=== PATIENT | female | born 1945 | race Caucasian/White ===

== ENCOUNTER 2020-09-21 14:46 | Inpatient (IN) | payer BC, MEDICARE, OTHER ==
[~2020-09-21] VITALS: Ht 152.4 cm; Wt 88.6 kg
[2020-09-21 16:40] VITALS: BP 163/81
--- NOTE | 2020-09-21 17:30 | NUR ---
Patient was admitted @1730 via [facility]. Patient is alert and oriented x 4. On RA saturating @ 93% pulse is 82. Patient has right upper arm midline. Informed Dr Bernstein of the admission.
[2020-09-21] MEDS ORDERED: Z GUARD REMEDY PASTE 57 GM TUBE TOP PRN (18:00)
[2020-09-21] MEDS ORDERED: OXYCODONE/APAP 5-325 MG TABLET PO PRN (19:00)
[2020-09-21] MEDS ORDERED: IPRATROPIUM NEB NEB (19:07)
[2020-09-21] MEDS ORDERED: MAGN250T37 PO (19:07)
[2020-09-21] MEDS ORDERED: ASCO500T10 PO (19:07)
[2020-09-21] MEDS ORDERED: ACET-2154 PO (19:07)
[2020-09-21] MEDS ORDERED: VANCO (19:07)
[2020-09-21] MEDS ORDERED: METHOCARBAMOL PO (19:07)
[2020-09-21] MEDS ORDERED: HYDR25TA4 PO (19:07)
[2020-09-21] MEDS ORDERED: ENOX40DI SQ (19:07)
[2020-09-21] MEDS ORDERED: diphenhydramine IV (19:07)
[2020-09-21] MEDS ORDERED: ZINC1CAP2 PO (19:07)
[2020-09-21] MEDS ORDERED: folic acid PO (19:07)
[2020-09-21] MEDS ORDERED: SODI473S8 TOP (19:07)
[2020-09-21] MEDS ORDERED: ALBU1.25 IH (19:07)
[2020-09-21] MEDS ORDERED: MAGN400O6 PO (19:07)
[2020-09-21] MEDS ORDERED: CEFE1FRO IV (19:07)
[2020-09-21] MEDS ORDERED: HYDROMORPHONE IV (19:07)
[2020-09-21] MEDS ORDERED: METF1000 PO (19:07)
[2020-09-21] MEDS ORDERED: AMLO10TA59 PO (19:07)
[2020-09-21] MEDS ORDERED: ZOLP5TAB8 PO (19:07)
[2020-09-21] MEDS ORDERED: METRONIDAZOLE IV (19:07)
[2020-09-21] MEDS ORDERED: VALS160T2 PO (19:07)
[2020-09-21] MEDS ORDERED: Vancomycin IV (19:07)
[2020-09-21] MEDS ORDERED: CHOL10002 PO (19:07)
[2020-09-21] MEDS ORDERED: ANAS1TAB50 PO (19:07)
[2020-09-21] MEDS ORDERED: CYAN100T44 PO (19:07)
[2020-09-21] MEDS ORDERED: ONDANSETRON (19:07)
[2020-09-21] MEDS ORDERED: OXYCODONE HCL 5 MG TABLET PO PRN (19:15)
[2020-09-21] MEDS ORDERED: DEXTROSE 50% 50 ML DISP.SYRIN IV PRN (19:45)
--- NOTE | 2020-09-21 19:52 | NUR ---
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 Patient history of left breast CA, Uterine CA, Chronic lower back pain and osteoarthritis. Patient on Davis Catheter with urine yellow in color. Patient has right upper arm midline and right chest wall portacath not accessed. Seen and examined by Dr Bernstein , received an order for Oxycodone IR 10mg every [address] Kenney Walters made aware of patient admission and the need for medication reconciliation. Routine admission care done. Endorsed accordingly to the shift stacker nurse.
[2020-09-21 20:15] VITALS: BP 142/54
[2020-09-21] MEDS ORDERED: ZOLPIDEM 5 MG TABLET PO PRN (21:30)
[2020-09-21] MEDS ORDERED: ALBUTEROL SULFATE 1.25 MG/3 ML NEBU IH PRN (21:30)
[2020-09-21] MEDS ORDERED: METHOCARBAMOL 500 MG TABLET PO PRN (21:30)
[2020-09-21] MEDS ORDERED: CEFEPIME HCL 1 G in IV DEXTROSE 5% 50 ML IV SCH (21:30)
[2020-09-21] MEDS ORDERED: MAGNESIUM HYDROXIDE 30 ML LIQUID UDC PO PRN (21:30)
[2020-09-21] MEDS ORDERED: IPRATROPIUM BROMIDE 0.5 MG/2.5 ML NEBU NEB PRN (21:30)
[2020-09-21] MEDS ORDERED: ACETAMINOPHEN 325 MG TABLET PO PRN (21:30)
[2020-09-21] MEDS ORDERED: METRONIDAZOLE 500 MG/NS 100ML 500 MG in PREMIXED 1 EACH IV SCH (22:00)
[2020-09-21] MEDS: INSULIN REGULAR, HUMAN 300 UNIT/3 ML VIAL SQ PRN (23:16)
[2020-09-21] MEDS: BLOOD SUGAR DIAGNOSTIC 1 EACH STRIP VI SCH (23:16)
[2020-09-21] MEDS ORDERED: VANCOMYCIN IV 1,250 MG in IV DEXTROSE 5% 250 ML IV ONE (23:45)
[2020-09-22] MEDS ORDERED: VANCOMYCIN HCL 500 MG VIAL ONE (00:16)
[2020-09-22] MEDS ORDERED: VANCOMYCIN 1000 MG VIAL ONE (00:16)
[2020-09-22] MEDS ORDERED: CEFEPIME HCL 1 G VIAL ONE (00:17)
[2020-09-22] MEDS ORDERED: METRONIDAZOLE 500 MG/NS 100ML 100 ML IV ONE (00:17)
[2020-09-22] MEDS ORDERED: NALOXONE HCL 0.4 MG/ML AMPUL IV PRN (00:30)
[2020-09-22] MEDS: OXYCODONE/APAP 5-325 MG TABLET PO PRN ×2 (03:39→12:28)
--- NOTE | 2020-09-22 03:59 | NUR ---
PT SCREAMING IN PAIN, REPOSITIONED FOR COMFORT, OFFLOADED ONTO RIGHT SIDE. PER PT REQUEST ADMINISTERED PERCOCET, WILL MONITOR FOR EFFECT. IV VANCO INFUSING. NEEDS ATTENDED TOO. ADMISSION PHOTOS NOT COMPLETED, PT REQUEST SHE IS IN TOO MUCH PAIN AND WOULD RATHER TAKE PHOTOS IN THE MORNING. WOULD LIKE TO REST. WILL CONTINUE PLAN OF CARE.
[2020-09-22 04:15] VITALS: BP 134/54
[2020-09-22] MEDS: OXYCODONE HCL 10 MG TAB.SR.12H PO SCH ×3 (06:42→21:49)
[2020-09-22] MEDS: BLOOD SUGAR DIAGNOSTIC 1 EACH STRIP VI SCH ×4 (06:48→20:57)
[2020-09-22 08:00] VITALS: BP 125/65
[2020-09-22 08:37] LABS: CREATININE 1.2 mg/dL (0.6-1.3); POTASSIUM 3.8 mmol/L (3.5-5.1)
[2020-09-22] MEDS ORDERED: SODIUM HYPOCHLORITE 0.125% (QUARTER STRENGTH) 473 ML BOTTLE TP SCH (09:00)
[2020-09-22] MEDS: HYDROCHLOROTHIAZIDE 25 MG TABLET PO SCH (09:06)
[2020-09-22] MEDS: ASCORBIC ACID 500 MG TABLET PO SCH (09:07)
[2020-09-22] MEDS: METFORMIN HCL 500 MG TABLET PO SCH ×2 (09:07→17:24)
[2020-09-22] MEDS: CHOLECALCIFEROL 1,000 UNIT TABLET PO SCH (09:07)
[2020-09-22] MEDS: VALSARTAN 160 MG TABLET PO SCH (09:07)
[2020-09-22] MEDS: ZINC SULFATE 220 MG CAPSULE PO SCH (09:07)
[2020-09-22] MEDS: AMLODIPINE 10 MG TABLET PO SCH (09:09)
[2020-09-22] MEDS: CYANOCOBALAMIN 100 MCG TABLET PO SCH (09:09)
[2020-09-22] MEDS: ENOXAPARIN SODIUM 40 MG/0.4 ML DISP.SYRIN SQ SCH (09:10)
[2020-09-22] MEDS: ANASTROZOLE 1 MG TABLET PO SCH (09:12)
[2020-09-22] MEDS: HYDROMORPHONE 1 MG/1 ML DISP.SYRIN IV PRN ×2 (09:25→15:57)
[2020-09-22] MEDS: METRONIDAZOLE 500 MG/NS 100ML 500 MG in PREMIXED 1 EACH IV SCH ×2 (10:28→17:25)
[2020-09-22] MEDS: SODIUM HYPOCHLORITE 0.125% (QUARTER STRENGTH) 473 ML BOTTLE TP SCH (10:59)
[2020-09-22] MEDS: INSULIN REGULAR, HUMAN 300 UNIT/3 ML VIAL SQ PRN (12:31)
[2020-09-22 15:27] VITALS: BP 143/53
--- NOTE | 2020-09-22 16:36 | NUR ---
Patient seen by Ellen Felix SCENE PAINTER for Dr. Estrada. Wound dressing change done by SCENE PAINTER. Patient agreed to have wound photos taken.
[2020-09-22 20:21] VITALS: BP 146/57
[2020-09-22] MEDS: MAGNESIUM OXIDE 250 MG TABLET PO SCH (20:59)
[2020-09-22] MEDS: CEFEPIME HCL 1 G in IV DEXTROSE 5% 50 ML IV SCH (21:10)
[2020-09-23] MEDS: METRONIDAZOLE 500 MG/NS 100ML 500 MG in PREMIXED 1 EACH IV SCH ×3 (01:57→18:18)
--- NOTE | 2020-09-23 03:43 | NUR ---
Patient received in bed AXO4 as per am shift report Patient seen by [employer] for DR. GREGORY WOUND dressing done BY [employer] wound pictures taken in AM. Patient on Davis Catheter intact draining urine in bag noted 400 ml urine yellow color, no odor noted. Patient has right upper arm midline and right chest wall mary cath not accessed. All due medication administered IV ATB Administered as per order no adverse reaction noted. PM care done kept clean and dry. safety messures initiated. call light with in [facility]
[2020-09-23 04:21] VITALS: BP 126/50
[2020-09-23 05:54] LABS: ABG BASE EXCESS 4.2 mmol/L; ABG HCO3 27.2 mmol/L; ABG PCO2 34.7 mmHg (35.0-45.0); ABG PH 7.512 (7.350-7.450); ABG PO2 65.3 mmHg (75.0-100.0); ABG SITE RIGHT RADIAL; ABG TOTAL HEMOGLOBIN 9.7 G/dL (12.0-16.0); MetHb 0.1 % (0.0-1.5); VENT MODE RA
[2020-09-23] MEDS: OXYCODONE HCL 10 MG TAB.SR.12H PO SCH ×4 (05:55→21:29)
--- NOTE | 2020-09-23 06:39 | NUR ---
End of shift notes: Quiet night. Compliant with meds. Pain meds given as scheduled. ABG's done. For CXR this am.
[2020-09-23] MEDS: BLOOD SUGAR DIAGNOSTIC 1 EACH STRIP VI SCH ×4 (06:42→20:09)
[2020-09-23 07:23] LABS: BASOPHILS # (AUTO) 0.1 K/uL (0.0-8.0); BASOPHILS % (AUTO) 0.5 % (0.0-2.0); EOSINOPHILS # (AUTO) 0.3 K/uL (0.0-0.7); EOSINOPHILS % (AUTO) 1.9 % (0.0-7.0); HEMATOCRIT 27.5 % (31.2-41.9); HEMOGLOBIN 9.2 g/dL (10.9-14.3); LYMPHOCYTES # (AUTO) 1.6 K/uL (20.0-40.0); LYMPHOCYTES % (AUTO) 9.3 % (20.5-51.5); MEAN CORPUSCULAR HGB CONC 33 g/dL (32.3-35.6); MEAN CORPUSCULAR VOLUME 87.2 fL (75.5-95.3); MONOCYTES # (AUTO) 1.5 K/uL (2.0-10.0); MONOCYTES % (AUTO) 8.9 % (0.0-11.0); NEUTROPHILS # (AUTO) 13.9 K/uL (1.8-8.9); NEUTROPHILS % (AUTO) 79.4 % (38.5-71.5); PLATELET COUNT (AUTO) 631 K/uL (179-408); RED BLOOD CELL COUNT(AUTO) 3.16 MIL/uL (3.63-4.92); WHITE BLOOD COUNT (AUTO) 17.5 K/uL (3.8-11.8)
--- NOTE | 2020-09-23 07:30 | NUR ---
Pt received in bed, awake, A&Ox4, able to verbalize needs. No SOB, no acute distress noted. Pt c/o pain, will administer medication per order. R double lumen midline patent and intact, antimicrobial dressing intact. Portacath noted, not accessible. Davis catheter intact, draining yellow urine. Dressing over vulva, perineum, and buttocks intact, will administer wound care per order. Safety measures in place, call light and belongings in reach. Will continue to monitor.
[2020-09-23 07:45] LABS: BILIRUBIN,TOTAL 0.3 mg/dL (0.2-1.0); CREATININE 1.3 mg/dL (0.6-1.3); MAGNESIUM 2.1 mg/dL (1.8-2.4); PHOSPHOROUS 2.6 mg/dL (2.5-4.9); TOTAL PROTEIN, SERUM 5.6 g/dL (6.4-8.2); VANCOMYCIN,RANDOM 23.3 ug/mL (18.0-26.0)
[2020-09-23 08:00] VITALS: BP 140/54
--- NOTE | 2020-09-23 08:40 | NUR ---
WOUND CARE CONSULT (LATE ENTRY): PT SEEN ON 09/22/20 WHEN SHE WAS EATING LUNCH. DEFER TO PLASTIC SURGERY TEAM ON CASE FOR WOUND TREATMENT PLAN. RECOMMENDATIONS MADE FOR SKIN PROTECTION AND DISCUSSED WITH NURSING STAFF. MD IN AGREEMENT WITH PLAN OF CARE.
[2020-09-23 08:54] LABS: THYROID STIMULATING HORMONE 7.009 mIU/mL (0.358-3.740)
[2020-09-23] MEDS: METFORMIN HCL 500 MG TABLET PO SCH ×2 (09:03→17:24)
[2020-09-23] MEDS: ANASTROZOLE 1 MG TABLET PO SCH (09:04)
[2020-09-23] MEDS: HYDROCHLOROTHIAZIDE 25 MG TABLET PO SCH (09:05)
[2020-09-23] MEDS: VALSARTAN 160 MG TABLET PO SCH (09:05)
[2020-09-23] MEDS: CYANOCOBALAMIN 100 MCG TABLET PO SCH (09:06)
[2020-09-23] MEDS: AMLODIPINE 10 MG TABLET PO SCH (09:06)
[2020-09-23] MEDS: ASCORBIC ACID 500 MG TABLET PO SCH (09:06)
[2020-09-23] MEDS: CHOLECALCIFEROL 1,000 UNIT TABLET PO SCH (09:07)
[2020-09-23] MEDS: ZINC SULFATE 220 MG CAPSULE PO SCH (09:07)
[2020-09-23] MEDS: INSULIN REGULAR, HUMAN 300 UNIT/3 ML VIAL SQ PRN ×4 (09:09→20:10)
[2020-09-23] MEDS: ENOXAPARIN SODIUM 40 MG/0.4 ML DISP.SYRIN SQ SCH (09:10)
[2020-09-23] MEDS: OXYCODONE/APAP 5-325 MG TABLET PO PRN (09:12)
[2020-09-23] MEDS: SODIUM HYPOCHLORITE 0.125% (QUARTER STRENGTH) 473 ML BOTTLE TP SCH (10:37)
[2020-09-23] MEDS: HYDROMORPHONE 1 MG/1 ML DISP.SYRIN IV PRN (12:03)
--- NOTE | 2020-09-23 12:45 | NUR ---
WOUND CARE FOLLOW UP: PT SEEN FOR FOLLOW UP OF SURGICAL SITE AT PERINEUM/VULVA TO RT BUTTOCK, PRESENT ON ADMISSION. DISCUSSED SKIN PROTECTION RECOMMENDATIONS WITH NURSING STAFF. NO ODOR NOTED. RED GRANULATION TISSUE NOTED WITH SMALL AMOUNT OF SEROSANGUINOUS DRAINAGE. MD Hernandez AGREEMENT WITH PLAN OF CARE. SURGEON ON CASE. Addendum: 09/23/20 at 1246 by MARYAM MEEKS RN Amended: Links added.
[2020-09-23] MEDS: VANCOMYCIN IV 1,000 MG in IV DEXTROSE 5% 250 ML IV SCH (15:51)
[2020-09-23 16:00] VITALS: BP 138/54
[2020-09-23] MEDS: GLUCERNA SHAKE VANILLA 237 ML CAN PO SCH (17:24)
--- NOTE | 2020-09-23 19:30 | NUR ---
EOSS: Pt in bed, talking on phone, no acute distress noted. PRN and scheduled pain medications administered per order, effective. All medications administered per order including IV abx, no a/r noted. Wound care administered per order with wound care nurse at bedside, pt tolerated fairly and expressed gratitude. Davis catheter intact. Pt tolerated meals and fluids well. Safety measures maintained, call light and belongings in reach. Will endorse care to procurement buyer.
[2020-09-23] MEDS: CELECOXIB 200 MG CAPSULE PO SCH (20:07)
[2020-09-23] MEDS: MAGNESIUM OXIDE 250 MG TABLET PO SCH (20:08)
[2020-09-23 20:36] VITALS: BP 122/54
[2020-09-23] MEDS: CEFEPIME HCL 1 G in IV DEXTROSE 5% 50 ML IV SCH (21:13)
--- NOTE | 2020-09-23 21:42 | NUR ---
Received pt resting in bed and watching tv. AAO x4. No acute distress noted. C/o 5/10 pain, routine pain med and other due meds given as ordered. Accucheck 152, insulin given as per sliding scale, snack given. Right upper arm midline, patent and intact. Davis catheter draining well with yellow colored urine. Safety measures maintained. Call light and personal items within reach. Will continue to monitor.
[2020-09-24] MEDS: METRONIDAZOLE 500 MG/NS 100ML 500 MG in PREMIXED 1 EACH IV SCH ×3 (01:01→17:23)
[2020-09-24 04:00] VITALS: BP 128/57
[2020-09-24] MEDS: OXYCODONE HCL 10 MG TAB.SR.12H PO SCH ×3 (06:02→21:43)
[2020-09-24] MEDS: BLOOD SUGAR DIAGNOSTIC 1 EACH STRIP VI SCH ×4 (06:36→20:49)
[2020-09-24 08:23] VITALS: BP 139/54
[2020-09-24] MEDS: ASCORBIC ACID 500 MG TABLET PO SCH (08:32)
[2020-09-24] MEDS: CELECOXIB 200 MG CAPSULE PO SCH (08:32)
[2020-09-24] MEDS: CHOLECALCIFEROL 1,000 UNIT TABLET PO SCH (08:32)
[2020-09-24] MEDS: ZINC SULFATE 220 MG CAPSULE PO SCH (08:33)
[2020-09-24] MEDS: METFORMIN HCL 500 MG TABLET PO SCH ×2 (08:33→17:23)
[2020-09-24] MEDS: CYANOCOBALAMIN 100 MCG TABLET PO SCH (08:33)
[2020-09-24] MEDS: VALSARTAN 160 MG TABLET PO SCH (08:35)
[2020-09-24] MEDS: HYDROCHLOROTHIAZIDE 25 MG TABLET PO SCH (08:35)
[2020-09-24] MEDS: AMLODIPINE 10 MG TABLET PO SCH (08:35)
[2020-09-24] MEDS: ENOXAPARIN SODIUM 40 MG/0.4 ML DISP.SYRIN SQ SCH (08:36)
[2020-09-24] MEDS: ANASTROZOLE 1 MG TABLET PO SCH (08:36)
[2020-09-24] MEDS: SODIUM HYPOCHLORITE 0.125% (QUARTER STRENGTH) 473 ML BOTTLE TP SCH (08:37)
[2020-09-24] MEDS: GLUCERNA SHAKE VANILLA 237 ML CAN PO SCH ×2 (08:37→17:23)
[2020-09-24] MEDS: OXYCODONE/APAP 5-325 MG TABLET PO PRN (09:03)
[2020-09-24] MEDS: INSULIN REGULAR, HUMAN 300 UNIT/3 ML VIAL SQ PRN ×2 (11:36→20:51)
[2020-09-24] MEDS: HYDROMORPHONE 1 MG/1 ML DISP.SYRIN IV PRN (15:12)
[2020-09-24 15:27] VITALS: BP 119/53
--- NOTE | 2020-09-24 18:12 | NUR ---
PATIENT PLEASANT AND COOPERATIVE THROUGHOUT THE DAY. VSS. WOUND CARE DONE. DRESSING CHANGED PER ORDER. CHOWDHURY CATHETER PATENT AND DRAINING WELL. SAFETY PRECAUTIONS IN PLACE. CALL LIGHT WITHIN REACH. MEDICATIONS GIVEN ORDERED. WILL CONTINUE TO MONITOR.
--- NOTE | 2020-09-24 19:15 | NUR ---
Received pt in bed, awake and alert, able to make needs known, pleasant. Patient on room air saturating at 94%, non labored breathing. IV access patent and intact. Davis cath draining well. Safety measures in place, call light within reach, will continue to monitor.
[2020-09-24 20:00] VITALS: BP 138/58
[2020-09-24] MEDS: CELECOXIB 100 MG CAPSULE PO SCH (20:23)
[2020-09-24] MEDS: MAGNESIUM OXIDE 250 MG TABLET PO SCH (20:24)
[2020-09-24] MEDS: DOCUSATE SODIUM 100 MG CAPSULE PO SCH (20:24)
[2020-09-24] MEDS: CEFEPIME HCL 1 G in IV DEXTROSE 5% 50 ML IV SCH (21:43)
[2020-09-25] MEDS: OXYCODONE/APAP 5-325 MG TABLET PO PRN (01:00)
[2020-09-25] MEDS: METRONIDAZOLE 500 MG/NS 100ML 500 MG in PREMIXED 1 EACH IV SCH ×3 (02:08→17:12)
[2020-09-25] MEDS: VANCOMYCIN IV 1,000 MG in IV DEXTROSE 5% 250 ML IV SCH (02:44)
[2020-09-25 04:00] VITALS: BP 114/49
[2020-09-25] MEDS: OXYCODONE HCL 10 MG TAB.SR.12H PO SCH ×3 (06:06→21:44)
--- NOTE | 2020-09-25 06:22 | NUR ---
Pt in bed, awake and responsive, slept intermittently through the night, no s/s of respiratory distress, due medications given as ordered, IV access intact and patent, presley draining well. safety measures in place, call light within reach, all needs attended.
[2020-09-25] MEDS: BLOOD SUGAR DIAGNOSTIC 1 EACH STRIP VI SCH ×4 (06:44→20:57)
[2020-09-25 07:54] VITALS: BP 110/50
[2020-09-25 07:56] LABS: CARBON DIOXIDE 26 mmol/L (21-32); CHLORIDE 102 mmol/L (98-107); CREATININE 1.4 mg/dL (0.6-1.3); GLUCOSE 149 mg/dL (74-106); POTASSIUM 4.6 mmol/L (3.5-5.1); UREA NITROGEN, BLOOD 25 mg/dL (7-18)
[2020-09-25] MEDS: VALSARTAN 160 MG TABLET PO SCH (09:00)
[2020-09-25] MEDS: AMLODIPINE 10 MG TABLET PO SCH (09:00)
[2020-09-25] MEDS: DOCUSATE SODIUM 100 MG CAPSULE PO SCH ×2 (09:03→20:54)
[2020-09-25] MEDS: ZINC SULFATE 220 MG CAPSULE PO SCH (09:07)
[2020-09-25] MEDS: ASCORBIC ACID 500 MG TABLET PO SCH (09:07)
[2020-09-25] MEDS: CYANOCOBALAMIN 100 MCG TABLET PO SCH (09:07)
[2020-09-25] MEDS: CHOLECALCIFEROL 1,000 UNIT TABLET PO SCH (09:09)
[2020-09-25] MEDS: GLUCERNA SHAKE VANILLA 237 ML CAN PO SCH ×2 (09:09→17:09)
[2020-09-25] MEDS: GLIMEPIRIDE 2 MG TABLET PO SCH (09:09)
[2020-09-25] MEDS: METFORMIN HCL 500 MG TABLET PO SCH (09:09)
[2020-09-25] MEDS: CELECOXIB 100 MG CAPSULE PO SCH (09:10)
[2020-09-25] MEDS: SODIUM HYPOCHLORITE 0.125% (QUARTER STRENGTH) 473 ML BOTTLE TP SCH (09:11)
[2020-09-25] MEDS: ENOXAPARIN SODIUM 40 MG/0.4 ML DISP.SYRIN SQ SCH (09:12)
[2020-09-25] MEDS: HYDROCHLOROTHIAZIDE 25 MG TABLET PO SCH (09:21)
[2020-09-25] MEDS: ANASTROZOLE 1 MG TABLET PO SCH (09:29)
[2020-09-25] MEDS: INSULIN REGULAR, HUMAN 300 UNIT/3 ML VIAL SQ PRN (13:07)
[2020-09-25 16:00] VITALS: BP 134/55
[2020-09-25] MEDS: HYDROMORPHONE 1 MG/1 ML DISP.SYRIN IV PRN (19:33)
[2020-09-25 20:00] VITALS: BP 149/38
[2020-09-25] MEDS: CELECOXIB 200 MG CAPSULE PO SCH (20:52)
[2020-09-25] MEDS: MAGNESIUM OXIDE 250 MG TABLET PO SCH (20:53)
[2020-09-25] MEDS: CEFEPIME HCL 1 G in IV DEXTROSE 5% 50 ML IV SCH (21:06)
--- NOTE | 2020-09-25 22:13 | NUR ---
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 Medicated with Dilaudid 1mg IV prior to dressing changes. Wound dressed with Kerlix soaked with Dakins solution packed to the wound under aseptic technique. Fall precautions maintained. RUE midline double lumen flushed and patent, IV ABT given as scheduled. Tolerated well. No ill effects noted. Incontinent of large amount of BM x1 Kept clean and dry. Davis catheter draining yellow urine. I & O monitor. All due meds given as scheduled. Accucheck 117. No distress noted. Will monitor patient. VSS. Compliant with care and meds.
[2020-09-26] MEDS: METRONIDAZOLE 500 MG/NS 100ML 500 MG in PREMIXED 1 EACH IV SCH ×3 (01:22→17:07)
[2020-09-26 04:37] VITALS: BP 148/57
[2020-09-26] MEDS: OXYCODONE HCL 10 MG TAB.SR.12H PO SCH ×3 (06:09→21:26)
[2020-09-26] MEDS: BLOOD SUGAR DIAGNOSTIC 1 EACH STRIP VI SCH ×3 (06:35→16:32)
--- NOTE | 2020-09-26 06:36 | NUR ---
End of shift notes: Slept well most of the shift. No acute distress noted. VSS. Davis catheter draining well. Accucheck 76, orange juice given. Will monitor blood sugar. Kept comfortable. Dressing intact.
[2020-09-26 07:02] LABS: BASOPHILS % (AUTO) 0.4 % (0.0-2.0); EOSINOPHILS # (AUTO) 0.4 K/uL (0.0-0.7); HEMATOCRIT 26.9 % (31.2-41.9); HEMOGLOBIN 8.9 g/dL (10.9-14.3); LYMPHOCYTES # (AUTO) 1.6 K/uL (20.0-40.0); LYMPHOCYTES % (AUTO) 13.1 % (20.5-51.5); MEAN CORPUSCULAR HEMOGLOBIN 29.4 uug (24.7-32.8); MEAN CORPUSCULAR HGB CONC 33 g/dL (32.3-35.6); MEAN CORPUSCULAR VOLUME 88.4 fL (75.5-95.3); MONOCYTES # (AUTO) 1.3 K/uL (2.0-10.0); MONOCYTES % (AUTO) 11.1 % (0.0-11.0); NEUTROPHILS # (AUTO) 8.7 K/uL (1.8-8.9); NEUTROPHILS % (AUTO) 72.4 % (38.5-71.5); PLATELET COUNT (AUTO) 504 K/uL (179-408); RED BLOOD CELL COUNT(AUTO) 3.04 MIL/uL (3.63-4.92); WHITE BLOOD COUNT (AUTO) 12.1 K/uL (3.8-11.8)
[2020-09-26 07:09] LABS: CREATININE 1.1 mg/dL (0.6-1.3); MAGNESIUM 2.2 mg/dL (1.8-2.4); POTASSIUM 4.2 mmol/L (3.5-5.1)
[2020-09-26] MEDS: CHOLECALCIFEROL 1,000 UNIT TABLET PO SCH (08:31)
[2020-09-26] MEDS: ASCORBIC ACID 500 MG TABLET PO SCH (08:32)
[2020-09-26] MEDS: AMLODIPINE 10 MG TABLET PO SCH (08:34)
[2020-09-26] MEDS: VALSARTAN 160 MG TABLET PO SCH (08:34)
[2020-09-26] MEDS: ZINC SULFATE 220 MG CAPSULE PO SCH (08:35)
[2020-09-26] MEDS: CELECOXIB 200 MG CAPSULE PO SCH ×2 (08:36→20:00)
[2020-09-26] MEDS: HYDROCHLOROTHIAZIDE 25 MG TABLET PO SCH (08:37)
[2020-09-26] MEDS: GLIMEPIRIDE 2 MG TABLET PO SCH (08:42)
[2020-09-26] MEDS: CYANOCOBALAMIN 100 MCG TABLET PO SCH (08:44)
[2020-09-26] MEDS: GLUCERNA SHAKE VANILLA 237 ML CAN PO SCH ×2 (08:46→17:08)
[2020-09-26] MEDS: ENOXAPARIN SODIUM 40 MG/0.4 ML DISP.SYRIN SQ SCH (08:48)
[2020-09-26] MEDS: ANASTROZOLE 1 MG TABLET PO SCH (08:49)
[2020-09-26] MEDS: DOCUSATE SODIUM 100 MG CAPSULE PO SCH ×2 (08:50→20:00)
[2020-09-26] MEDS: SODIUM HYPOCHLORITE 0.125% (QUARTER STRENGTH) 473 ML BOTTLE TP SCH (09:02)
[2020-09-26] MEDS: INSULIN REGULAR, HUMAN 300 UNIT/3 ML VIAL SQ PRN (11:43)
[2020-09-26] MEDS: HYDROMORPHONE 1 MG/1 ML DISP.SYRIN IV PRN (14:45)
[2020-09-26] MEDS: VANCOMYCIN IV 1,000 MG in IV DEXTROSE 5% 250 ML IV SCH (15:32)
--- NOTE | 2020-09-26 16:51 | NUR ---
dressing changed to perineal wound, wound bed is red in color, no drainage noted, no odor noted, wound looks healthy, with minimum serosanguineous drainage, periwound is pink in color, pain management done, patient tolerated dressing changed well, presley catheter draining well, intact, good perineal care provided
[2020-09-26 19:58] VITALS: BP 145/60
[2020-09-26] MEDS: MAGNESIUM OXIDE 250 MG TABLET PO SCH (20:00)
[2020-09-26] MEDS: CEFEPIME HCL 1 G in IV DEXTROSE 5% 50 ML IV SCH (21:26)
--- NOTE | 2020-09-26 21:44 | NUR ---
Received pt resting in bed. AAO x4. No acute distress noted. C/o 7 to 8 pain scale, routine pain med and other due meds given as ordered. Snacks given. KETURAH midline patent and intact. Davis catheter draining well with clear yellow colored urine. Pt turned and repositioned. Air mattress in place. Safety measures maintained. Call light and personal items within reach. Will continue to monitor.
[2020-09-27] MEDS: METRONIDAZOLE 500 MG/NS 100ML 500 MG in PREMIXED 1 EACH IV SCH ×3 (01:37→17:10)
[2020-09-27] MEDS: OXYCODONE HCL 10 MG TAB.SR.12H PO SCH ×3 (05:24→22:16)
[2020-09-27 06:00] VITALS: BP 124/64
[2020-09-27] MEDS: AMLODIPINE 10 MG TABLET PO SCH (08:58)
[2020-09-27] MEDS: HYDROCHLOROTHIAZIDE 25 MG TABLET PO SCH (08:58)
[2020-09-27] MEDS: CELECOXIB 200 MG CAPSULE PO SCH ×2 (08:58→21:29)
[2020-09-27] MEDS: ANASTROZOLE 1 MG TABLET PO SCH (08:59)
[2020-09-27] MEDS: ASCORBIC ACID 500 MG TABLET PO SCH (09:00)
[2020-09-27] MEDS: CYANOCOBALAMIN 100 MCG TABLET PO SCH (09:00)
[2020-09-27] MEDS: ZINC SULFATE 220 MG CAPSULE PO SCH (09:00)
[2020-09-27] MEDS: GLIMEPIRIDE 2 MG TABLET PO SCH (09:01)
[2020-09-27] MEDS: DOCUSATE SODIUM 100 MG CAPSULE PO SCH ×2 (09:01→21:00)
[2020-09-27] MEDS: CHOLECALCIFEROL 1,000 UNIT TABLET PO SCH (09:01)
[2020-09-27] MEDS: VALSARTAN 160 MG TABLET PO SCH (09:01)
[2020-09-27] MEDS: ENOXAPARIN SODIUM 40 MG/0.4 ML DISP.SYRIN SQ SCH (09:03)
[2020-09-27] MEDS: GLUCERNA SHAKE VANILLA 237 ML CAN PO SCH ×2 (09:04→16:43)
[2020-09-27] MEDS: SODIUM HYPOCHLORITE 0.125% (QUARTER STRENGTH) 473 ML BOTTLE TP SCH (09:04)
[2020-09-27 11:52] LABS: *OCCULT BLOOD STOOL POSITIVE (NEGATIVE)
[2020-09-27] MEDS: HYDROMORPHONE 1 MG/1 ML DISP.SYRIN IV PRN ×2 (14:42→21:01)
--- NOTE | 2020-09-27 19:01 | NUR ---
Notified Dr. Vogel regarding the result of stool occult blood test with no new order. Patientmade aware. Davis catheter draining well with urine yellow in color. Wound dressing change. All due meds given as ordered, tolerated well. KETURAH IV site patent. All needs met promptly.
[2020-09-27 20:46] VITALS: BP 123/46
[2020-09-27] MEDS: MAGNESIUM OXIDE 250 MG TABLET PO SCH (21:57)
[2020-09-27] MEDS: CEFEPIME HCL 1 G in IV DEXTROSE 5% 50 ML IV SCH (22:15)
[2020-09-28] MEDS: METRONIDAZOLE 500 MG/NS 100ML 500 MG in PREMIXED 1 EACH IV SCH (02:05)
[2020-09-28] MEDS: VANCOMYCIN IV 1,000 MG in IV DEXTROSE 5% 250 ML IV SCH (03:32)
[2020-09-28] MEDS: HYDROMORPHONE 1 MG/1 ML DISP.SYRIN IV PRN ×2 (04:39→10:45)
[2020-09-28] MEDS: OXYCODONE HCL 10 MG TAB.SR.12H PO SCH ×3 (06:03→21:24)
[2020-09-28 06:40] LABS: BASOPHILS # (AUTO) 0.1 K/uL (0.0-8.0); BASOPHILS % (AUTO) 0.6 % (0.0-2.0); EOSINOPHILS # (AUTO) 0.4 K/uL (0.0-0.7); EOSINOPHILS % (AUTO) 4.4 % (0.0-7.0); HEMATOCRIT 24.4 % (31.2-41.9); HEMOGLOBIN 8.3 g/dL (10.9-14.3); LYMPHOCYTES # (AUTO) 1.2 K/uL (20.0-40.0); LYMPHOCYTES % (AUTO) 15.1 % (20.5-51.5); MEAN CORPUSCULAR HEMOGLOBIN 30.2 uug (24.7-32.8); MEAN CORPUSCULAR HGB CONC 34 g/dL (32.3-35.6); MEAN CORPUSCULAR VOLUME 88.9 fL (75.5-95.3); MONOCYTES % (AUTO) 11.9 % (0.0-11.0); NEUTROPHILS # (AUTO) 5.6 K/uL (1.8-8.9); PLATELET COUNT (AUTO) 398 K/uL (179-408); RED BLOOD CELL COUNT(AUTO) 2.75 MIL/uL (3.63-4.92); WHITE BLOOD COUNT (AUTO) 8.2 K/uL (3.8-11.8)
[2020-09-28 06:50] LABS: CREATININE 1.3 mg/dL (0.6-1.3); POTASSIUM 4.1 mmol/L (3.5-5.1)
--- NOTE | 2020-09-28 06:53 | NUR ---
End of Shift: Patient is AOx4 with presley catheter draining well, urine yellow in color. Patient is on RA sating at 94%. Wound dressing changed and patient is comfortable. All due meds given as ordered, tolerated well. Patient slept through the night. KETURAH midline IV intact and patent. All needs met promptly. Safety precautions in place, bed is low and locked position. Will endorse to the AM shift nurse.
[2020-09-28 08:00] VITALS: BP 129/46
[2020-09-28] MEDS: DOCUSATE SODIUM 100 MG CAPSULE PO SCH ×2 (09:00→21:00)
[2020-09-28] MEDS: ENOXAPARIN SODIUM 40 MG/0.4 ML DISP.SYRIN SQ SCH (09:14)
--- NOTE | 2020-09-28 09:15 | NUR ---
Received pt in bed, A&Ox4, able to verbalize needs. No acute distress noted. Pt on RA, no SOB. No complaints of pain at this time. Medications administered per order, pt adherent. R double lumen midline patent and intact, antimicrobial dressing intact. Davis catheter intact, draining yellow urine. Dressing over vulva, perineum, and buttocks intact, will administer wound care per order. Safety measures in place, call light and belongings in reach. Will continue to monitor.
[2020-09-28] MEDS: GLIMEPIRIDE 2 MG TABLET PO SCH (09:16)
[2020-09-28] MEDS: ANASTROZOLE 1 MG TABLET PO SCH (09:16)
[2020-09-28] MEDS: ASCORBIC ACID 500 MG TABLET PO SCH (09:16)
[2020-09-28] MEDS: ZINC SULFATE 220 MG CAPSULE PO SCH (09:16)
[2020-09-28] MEDS: CELECOXIB 200 MG CAPSULE PO SCH ×2 (09:16→20:26)
[2020-09-28] MEDS: CYANOCOBALAMIN 100 MCG TABLET PO SCH (09:17)
[2020-09-28] MEDS: CHOLECALCIFEROL 1,000 UNIT TABLET PO SCH (09:17)
[2020-09-28] MEDS: HYDROCHLOROTHIAZIDE 25 MG TABLET PO SCH (09:18)
[2020-09-28] MEDS: METRONIDAZOLE 500 MG TABLET PO SCH ×2 (09:18→17:50)
[2020-09-28] MEDS: AMLODIPINE 10 MG TABLET PO SCH (09:18)
[2020-09-28] MEDS: VALSARTAN 160 MG TABLET PO SCH (09:18)
[2020-09-28] MEDS: GLUCERNA SHAKE VANILLA 237 ML CAN PO SCH ×2 (09:19→17:53)
[2020-09-28] MEDS: SODIUM HYPOCHLORITE 0.125% (QUARTER STRENGTH) 473 ML BOTTLE TP SCH (09:30)
[2020-09-28 16:31] VITALS: BP 133/50
--- NOTE | 2020-09-28 19:03 | NUR ---
EOSS: Pt in bed, awake, no acute distress noted. On RA, no SOB, O2 sat 94%. Medications administered per order, no a/r noted. NATHAN Payne Walk at bedside this AM for wound debridement procedure. Wound care administered per order following procedurem, pt tolerated well. Davis catheter intact, draining yellow urine. Pt tolerated meals and fluids well. Safety measures maintained, call light and belongings in reach. Will endorse care to shift stacker.
--- NOTE | 2020-09-28 19:30 | NUR ---
RECEIVED PT AWAKE, ALERT AND ORIENTEDX4.PT IN NO ACUTE DISTRESS. SAFETY AND COMFORT PROVIDED. WILL CONTINUE TO MONITOR.
[2020-09-28 20:00] VITALS: BP 133/50
[2020-09-28] MEDS: MAGNESIUM OXIDE 250 MG TABLET PO SCH (20:27)
[2020-09-28 21:09] LABS: EOSINOPHILS % (MANUAL) 2 % (0-8); LYMPHOCYTES % (MANUAL) 14 % (20-40); MONOCYTES % (MANUAL) 8 % (2-10); NEUTROPHILS % (MANUAL) 76 % (42-75)
[2020-09-28] MEDS: CEFEPIME HCL 1 G in IV DEXTROSE 5% 50 ML IV SCH (21:24)
--- NOTE | 2020-09-28 22:00 | NUR ---
PT REFUSED HER COLACE MEDICATION. PT IN NO ACUTE DISTRESS.
[2020-09-29] MEDS: METRONIDAZOLE 500 MG TABLET PO SCH ×3 (01:36→17:10)
[2020-09-29 04:00] VITALS: BP 136/56
[2020-09-29] MEDS: OXYCODONE HCL 10 MG TAB.SR.12H PO SCH ×3 (05:47→21:29)
--- NOTE | 2020-09-29 06:36 | NUR ---
PT IN NO ACUTE DISTRESS. PRESCRIBED MEDICATION GIVEN AND PT TOLERATED IT WELL. SAFETY AND COMFORT PROVIDED. ALL NEEDS ARE MET. WILL ENDORSE TO INCOMING NURSE FOR CONTINUITY OF CARE.
[2020-09-29 06:47] LABS: CARBON DIOXIDE 31 mmol/L (21-32); CHLORIDE 103 mmol/L (98-107); CREATININE 1.4 mg/dL (0.6-1.3); GLUCOSE 102 mg/dL (74-106); POTASSIUM 4.8 mmol/L (3.5-5.1); UREA NITROGEN, BLOOD 26 mg/dL (7-18)
[2020-09-29] MEDS: CHOLECALCIFEROL 1,000 UNIT TABLET PO SCH (08:41)
[2020-09-29] MEDS: CELECOXIB 200 MG CAPSULE PO SCH ×2 (08:41→20:45)
[2020-09-29] MEDS: ZINC SULFATE 220 MG CAPSULE PO SCH (08:41)
[2020-09-29] MEDS: GLIMEPIRIDE 2 MG TABLET PO SCH (08:41)
[2020-09-29] MEDS: ASCORBIC ACID 500 MG TABLET PO SCH (08:42)
[2020-09-29] MEDS: ENOXAPARIN SODIUM 40 MG/0.4 ML DISP.SYRIN SQ SCH (08:44)
[2020-09-29] MEDS: ANASTROZOLE 1 MG TABLET PO SCH (08:44)
[2020-09-29] MEDS: CYANOCOBALAMIN 100 MCG TABLET PO SCH (08:45)
[2020-09-29] MEDS: PROTEIN SUPPLEMENT (PROSTAT) 30 ML LIQUID PO SCH (08:46)
[2020-09-29] MEDS: DOCUSATE SODIUM 100 MG CAPSULE PO SCH ×2 (08:46→20:47)
[2020-09-29] MEDS: GLUCERNA SHAKE VANILLA 237 ML CAN PO SCH ×2 (08:46→17:11)
[2020-09-29] MEDS: VALSARTAN 160 MG TABLET PO SCH (08:47)
[2020-09-29] MEDS: HYDROCHLOROTHIAZIDE 25 MG TABLET PO SCH (08:47)
[2020-09-29] MEDS: AMLODIPINE 10 MG TABLET PO SCH (08:50)
[2020-09-29] MEDS: SODIUM HYPOCHLORITE 0.125% (QUARTER STRENGTH) 473 ML BOTTLE TP SCH (09:00)
[2020-09-29 09:14] VITALS: BP 138/60
--- NOTE | 2020-09-29 09:15 | NUR ---
Received pt in bed, awake, able to verbalize needs. No acute distress, no SOB noted. Pt on RA, O2 saturation 96%. Pt denies pain at this time. Pt refused 0900 Colace. R double lumen midline patent and intact, antimicrobial dressing intact. Davis catheter draining yellow urine. Dressing over vulva, perineum, and buttocks intact, will administer wound care per order. Safety measures in place, call light and belongings in reach. Will continue to monitor.
[2020-09-29] MEDS: HYDROMORPHONE 1 MG/1 ML DISP.SYRIN IV PRN ×2 (12:55→19:51)
[2020-09-29] MEDS: VANCOMYCIN IV 1,000 MG in IV DEXTROSE 5% 250 ML IV SCH (15:27)
[2020-09-29 15:36] VITALS: BP 150/59
--- NOTE | 2020-09-29 18:46 | NUR ---
EOSS: Pt in bed, awake, no acute distress, no SOB. O2 saturation 98% on RA. No complaints at this time. Medications administered per order, no a/r noted. Wound care administered per order, pt tolerated well and expressed gratitude. Davis catheter intact, draining yellow urine. R arm double lumen midline intact, patent. Pt tolerated meals and fluids well. Safety measures maintained, call light and belongings in reach. Will endorse care to electrical and instrumentation manager.
[2020-09-29 20:42] VITALS: BP 134/63
[2020-09-29] MEDS: MAGNESIUM OXIDE 250 MG TABLET PO SCH (20:45)
[2020-09-29] MEDS: CEFEPIME HCL 1 G in IV DEXTROSE 5% 50 ML IV SCH (21:29)
[2020-09-30] MEDS: METRONIDAZOLE 500 MG TABLET PO SCH ×3 (01:51→17:06)
--- NOTE | 2020-09-30 02:12 | NUR ---
AAOx4 All needs attended and met. All due meds given as ordered. Pain meds given as scheduled. Dressing changed as needed pack wound with Dakins & kerlix and covered with ABD pads. Dilaudid 1mg IV given prior to dressing changes. Fall precautions maintained. Patient possible d/c to [facility] for possible skin graft of the wound. VSS. Will monitor patient.Siderails up for safety. Incontinent of bowel and bladder. BM noted. Kept clean and dry.
[2020-09-30 04:30] VITALS: BP 164/69
[2020-09-30] MEDS: OXYCODONE HCL 10 MG TAB.SR.12H PO SCH ×2 (06:06→14:00)
--- NOTE | 2020-09-30 06:52 | NUR ---
End of shift notes: Slept well most of the shift. AAOx4 No distress noted. All due meds given as scheduled. Pain meds given as needed with relief obtained.
[2020-09-30 07:21] LABS: BASOPHILS % (AUTO) 0.6 % (0.0-2.0); EOSINOPHILS # (AUTO) 0.4 K/uL (0.0-0.7); EOSINOPHILS % (AUTO) 5.8 % (0.0-7.0); HEMATOCRIT 29.3 % (31.2-41.9); HEMOGLOBIN 9.8 g/dL (10.9-14.3); LYMPHOCYTES # (AUTO) 1.3 K/uL (20.0-40.0); LYMPHOCYTES % (AUTO) 20.6 % (20.5-51.5); MEAN CORPUSCULAR HEMOGLOBIN 29.4 uug (24.7-32.8); MEAN CORPUSCULAR HGB CONC 33 g/dL (32.3-35.6); MEAN CORPUSCULAR VOLUME 88.1 fL (75.5-95.3); MONOCYTES # (AUTO) 0.8 K/uL (2.0-10.0); MONOCYTES % (AUTO) 13.5 % (0.0-11.0); NEUTROPHILS # (AUTO) 3.7 K/uL (1.8-8.9); NEUTROPHILS % (AUTO) 59.5 % (38.5-71.5); PLATELET COUNT (AUTO) 462 K/uL (179-408); RED BLOOD CELL COUNT(AUTO) 3.33 MIL/uL (3.63-4.92); WHITE BLOOD COUNT (AUTO) 6.3 K/uL (3.8-11.8)
[2020-09-30 07:38] LABS: CREATININE 1.2 mg/dL (0.6-1.3); MAGNESIUM 2.1 mg/dL (1.8-2.4); POTASSIUM 4.4 mmol/L (3.5-5.1); VANCOMYCIN,RANDOM 21.1 ug/mL (18.0-26.0)
[2020-09-30 08:00] VITALS: BP 151/67
[2020-09-30] MEDS: ZINC SULFATE 220 MG CAPSULE PO SCH (08:28)
[2020-09-30] MEDS: GLIMEPIRIDE 2 MG TABLET PO SCH (08:29)
[2020-09-30] MEDS: CHOLECALCIFEROL 1,000 UNIT TABLET PO SCH (08:29)
[2020-09-30] MEDS: CELECOXIB 200 MG CAPSULE PO SCH (08:29)
[2020-09-30] MEDS: CYANOCOBALAMIN 100 MCG TABLET PO SCH (08:30)
[2020-09-30] MEDS: DOCUSATE SODIUM 100 MG CAPSULE PO SCH (08:31)
[2020-09-30] MEDS: HYDROCHLOROTHIAZIDE 25 MG TABLET PO SCH (08:31)
[2020-09-30] MEDS: AMLODIPINE 10 MG TABLET PO SCH (08:31)
[2020-09-30] MEDS: GLUCERNA SHAKE VANILLA 237 ML CAN PO SCH ×2 (08:32→17:06)
[2020-09-30] MEDS: ASCORBIC ACID 500 MG TABLET PO SCH (08:32)
[2020-09-30] MEDS: VALSARTAN 160 MG TABLET PO SCH (08:32)
[2020-09-30] MEDS: ANASTROZOLE 1 MG TABLET PO SCH (08:33)
[2020-09-30] MEDS: ENOXAPARIN SODIUM 40 MG/0.4 ML DISP.SYRIN SQ SCH ×2 (08:34→09:00)
[2020-09-30] MEDS: SODIUM HYPOCHLORITE 0.125% (QUARTER STRENGTH) 473 ML BOTTLE TP SCH (08:35)
[2020-09-30] MEDS: PROTEIN SUPPLEMENT (PROSTAT) 30 ML LIQUID PO SCH (08:36)
[2020-09-30] MEDS: HYDROMORPHONE 1 MG/1 ML DISP.SYRIN IV PRN ×2 (09:39→13:50)
--- NOTE | 2020-09-30 10:00 | NUR ---
lovenox held and wasted with witness of another nurse
[2020-09-30] MEDS ORDERED: CEFEPIME HCL 1 G in IV DEXTROSE 5% 50 ML IV SCH (13:00)
--- NOTE | 2020-09-30 14:53 | NUR ---
called ted arzate to give report to jair KWAN, could not reach the nurse, will try again
--- NOTE | 2020-09-30 15:37 | NUR ---
report given to Jareth KWAN from [facility]
[2020-09-30 16:22] VITALS: BP 126/52
[2020-09-30] MEDS: OXYCODONE/APAP 5-325 MG TABLET PO PRN (17:05)
--- NOTE | 2020-09-30 17:29 | NUR ---
patient is alert, oriented x4, verbally responsive, no sob, resp even nonlabored, skin warm and dry to touch, stable condition, being discharged to [facility] for further intervention for perineal wound, belongings are accounted and signed, sent with patient, dressing changed as ordered, patient has BM X2, wound kept clean and dry, wound is red in color, with some slough in there, no drainage noted, no odor noted, Meds administered as ordered, picked up by ambulance, discharge instructions given to patient, patient verbalized understanding of it, presley catheter intact, draining clear yellow urine. mid line to right upper arm is intact.
== END 2020-09-30 17:30 | disposition short-term general hospital (02) | DRG 981 ==
PROVIDERS: ADMIT Physical Medicine & Rehabilitation Pain Medicine; ATTEND Physical Medicine & Rehabilitation Pain Medicine
PROC: 0KBM0ZZ Excision of Perineum Muscle, Open Approach (ICD-10-PCS; principal; 2020-09-28)
DX: N76.89 Other specified inflammation of vagina and vulva (principal); I50.33 Acute on chronic diastolic (congestive) heart failure; E11.52 Type 2 diabetes mellitus with diabetic peripheral angiopathy with gangrene; N17.9 Acute kidney failure, unspecified; D68.59 Other primary thrombophilia; L08.89 Other specified local infections of the skin and subcutaneous tissue; D64.9 Anemia, unspecified; D72.829 Elevated white blood cell count, unspecified; G62.9 Polyneuropathy, unspecified; G89.29 Other chronic pain; M19.90 Unspecified osteoarthritis, unspecified site; M81.0 Age-related osteoporosis without current pathological fracture; I08.0 Rheumatic disorders of both mitral and aortic valves; Z79.4 Long term (current) use of insulin; Z82.49 Family history of ischemic heart disease and other diseases of the circulatory system; Z85.3 Personal history of malignant neoplasm of breast; Z85.42 Personal history of malignant neoplasm of other parts of uterus; Z86.73 Personal history of transient ischemic attack (TIA), and cerebral infarction without residual deficits; Z90.710 Acquired absence of both cervix and uterus; Z87.891 Personal history of nicotine dependence; E11.42 Type 2 diabetes mellitus with diabetic polyneuropathy; E11.65 Type 2 diabetes mellitus with hyperglycemia; Z83.3 Family history of diabetes mellitus; I11.0 Hypertensive heart disease with heart failure; I70.0 Atherosclerosis of aorta; J44.9 Chronic obstructive pulmonary disease, unspecified; K57.30 Diverticulosis of large intestine without perforation or abscess without bleeding; L08.9 Local infection of the skin and subcutaneous tissue, unspecified; Z20.822 Contact with and (suspected) exposure to COVID-19; Z68.36 Body mass index [BMI] 36.0-36.9, adult; Z90.12 Acquired absence of left breast and nipple; M54.5 Low back pain; G47.30 Sleep apnea, unspecified; E66.01 Morbid (severe) obesity due to excess calories; R19.5 Other fecal abnormalities; L98.9 Disorder of the skin and subcutaneous tissue, unspecified
CPT/HCPCS: 36415; 36600; 70030-TC; 71045; 83735; 84100; 84443; 85025; J0692; J1170; J1650; J1815; J3370; J3490; J7040; J7050; J7060

== ENCOUNTER 2020-10-07 15:19 | Inpatient (IN) | payer BC, MEDICARE, OTHER ==
[~2020-10-07] VITALS: Ht 172.7 cm; Wt 88.5 kg
[~2020-10-07 15:19] MED LIST: ACET-2154 PO; ALBU1.25 IH; AMLO10TA59 PO; ANAS1TAB50 PO; ASCO500T10 PO; CEFE1FRO IV; CHOL10002 PO; CYAN100T44 PO; ENOX40DI SQ; HYDR25TA4 PO; HYDROMORPHONE IV; IPRATROPIUM NEB NEB; MAGN250T37 PO; MAGN400O6 PO; METF1000 PO; METHOCARBAMOL PO; METRONIDAZOLE IV; ONDANSETRON; SODI473S8 TOP; VALS160T2 PO; VANCO; Vancomycin IV; ZINC1CAP2 PO; ZOLP5TAB8 PO; diphenhydramine IV; folic acid PO
[2020-10-07] MEDS ORDERED: Z GUARD REMEDY PASTE 57 GM TUBE TOP PRN (20:30)
[2020-10-07 20:56] VITALS: BP 132/47
[2020-10-07] MEDS ORDERED: ASCO-375 PO (21:04)
[2020-10-07] MEDS ORDERED: ALBU2.5V38 NEB (21:04)
[2020-10-07] MEDS ORDERED: DOCU-141 PO (21:05)
[2020-10-07] MEDS ORDERED: BENZ236L TP (21:05)
[2020-10-07] MEDS ORDERED: VITA1CAP PO (21:05)
[2020-10-07] MEDS ORDERED: CELE200C PO (21:05)
[2020-10-07] MEDS ORDERED: OXYC-128 PO (21:05)
[2020-10-07] MEDS ORDERED: OXYC10TA49 PO (21:05)
[2020-10-07] MEDS ORDERED: SODI473S9 MC (21:05)
[2020-10-07] MEDS ORDERED: HYDR4TAB57 PO (21:05)
[2020-10-07] MEDS ORDERED: AMIN30LI2 PO (21:05)
[2020-10-07] MEDS ORDERED: NUT.237L36 PO (21:05)
[2020-10-07] MEDS ORDERED: GLIM1TAB18 PO (21:05)
[2020-10-07] MEDS ORDERED: NALO4SPR NS (21:05)
[2020-10-07] MEDS ORDERED: IPRA0.2S48 INH (21:05)
[2020-10-07] MEDS ORDERED: HYDROMORPHONE HCL 2 MG TABLET PO PRN (22:15)
[2020-10-07] MEDS: ENOXAPARIN SODIUM 40 MG/0.4 ML DISP.SYRIN SQ SCH (22:36)
[2020-10-07] MEDS: CELECOXIB 200 MG CAPSULE PO SCH (22:38)
[2020-10-07] MEDS: OXYCODONE/APAP 5-325 MG TABLET PO PRN (22:38)
--- NOTE | 2020-10-07 23:00 | NUR ---
Patient arrived in the room via gurney assisted by 2 piercer through direct admission from [facility] at 2100. DX: Nathaniel's Gangrene of buttocks and thigh, s/p Debridement. Patient is AAO x4 no acute distress noted. Patient is at Room Air saturating 96%, no SOB noted. Patient has Davis catheter draining yellow colored urine, ROSCOE drainage on abdomen, with serosanguineous drainage collected 20 cc output. Belonging list's done placed in chart, admission order completed. Med reconcile is done by NETTIE SERRANO and DR. VILLALPANDO aware of admission. Oriented patient to the room, safety measures and precautions in place. Call light with in reach. Will continue to monitor patient through out the night. continue with the plan of care.
[2020-10-07] MEDS ORDERED: DEXTROSE 50% 50 ML DISP.SYRIN IV PRN (23:45)
[2020-10-08 04:00] VITALS: BP 114/40
[2020-10-08] MEDS: OXYCODONE HCL 10 MG TAB.SR.12H PO SCH ×3 (06:23→21:07)
[2020-10-08 06:25] LABS: BASOPHILS % (AUTO) 0.5 % (0.0-2.0); EOSINOPHILS # (AUTO) 0.5 K/uL (0.0-0.7); EOSINOPHILS % (AUTO) 6.7 % (0.0-7.0); HEMATOCRIT 28.3 % (31.2-41.9); HEMOGLOBIN 9.3 g/dL (10.9-14.3); LYMPHOCYTES # (AUTO) 1.6 K/uL (20.0-40.0); MEAN CORPUSCULAR HEMOGLOBIN 29.1 uug (24.7-32.8); MEAN CORPUSCULAR HGB CONC 33 g/dL (32.3-35.6); MEAN CORPUSCULAR VOLUME 88.3 fL (75.5-95.3); MONOCYTES # (AUTO) 0.8 K/uL (2.0-10.0); MONOCYTES % (AUTO) 11.6 % (0.0-11.0); NEUTROPHILS % (AUTO) 58.2 % (38.5-71.5); PLATELET COUNT (AUTO) 465 K/uL (179-408); WHITE BLOOD COUNT (AUTO) 6.9 K/uL (3.8-11.8)
[2020-10-08] MEDS: BLOOD SUGAR DIAGNOSTIC 1 EACH STRIP VI SCH ×4 (06:31→20:57)
[2020-10-08 06:49] LABS: MAGNESIUM 2.2 mg/dL (1.8-2.4)
--- NOTE | 2020-10-08 06:51 | NUR ---
Patient slept intermittently c/o pain at back PRN pain meds administered as ordered helped with pain and no further complain, skin assessment done photos taken kept in chart. ROSCOE drainage with 5 cc in am. All needs attended bed in lowest position, safety precautions observed all time . Kept clean and dry, Reports given to AM nurse. Will continue with plan of care.
--- NOTE | 2020-10-08 07:56 | NUR ---
Patient Alert oriented x4 patient has $395 in her belongings in her possession and patient refuse to put in safety box risk and befits discussed, patient refused. Respected patients right. Endorse AM shift.
[2020-10-08] MEDS ORDERED: GLUCERNA 1.2 1000ML LIQUID PO SCH (09:00)
[2020-10-08] MEDS: METHOCARBAMOL 500 MG TABLET PO SCH ×4 (09:00→17:00)
[2020-10-08] MEDS ORDERED: CELECOXIB 200 MG CAPSULE PO SCH (09:00)
[2020-10-08] MEDS: ASCORBIC ACID 500 MG TABLET PO SCH (09:20)
[2020-10-08] MEDS: DOCUSATE SODIUM 100 MG CAPSULE PO SCH ×2 (09:21→20:49)
[2020-10-08] MEDS: CHOLECALCIFEROL 1,000 UNIT TABLET PO SCH (09:21)
[2020-10-08] MEDS: CYANOCOBALAMIN 100 MCG TABLET PO SCH (09:24)
[2020-10-08] MEDS: ZINC SULFATE 220 MG CAPSULE PO SCH (09:24)
[2020-10-08] MEDS: FOLIC ACID 1 MG TABLET PO SCH (09:28)
[2020-10-08] MEDS: VITAMIN B COMPLEX 1 TABLET PO SCH (09:32)
[2020-10-08] MEDS: CELECOXIB 200 MG CAPSULE PO SCH ×2 (09:32→20:49)
[2020-10-08] MEDS: ANASTROZOLE 1 MG TABLET PO SCH (09:32)
[2020-10-08] MEDS: PROTEIN SUPPLEMENT (PROSTAT) 30 ML LIQUID PO SCH (09:33)
[2020-10-08] MEDS: HYDROCHLOROTHIAZIDE 25 MG TABLET PO SCH (09:36)
[2020-10-08] MEDS: AMLODIPINE 10 MG TABLET PO SCH (10:44)
[2020-10-08] MEDS: VALSARTAN 160 MG TABLET PO SCH (10:44)
[2020-10-08 10:56] VITALS: BP 111/51
[2020-10-08] MEDS: INSULIN REGULAR, HUMAN 300 UNIT/3 ML VIAL SQ PRN ×2 (13:33→16:57)
[2020-10-08 15:20] VITALS: BP 135/57
[2020-10-08] MEDS: GLUCERNA SHAKE 237 ML CAN PO SCH (17:22)
[2020-10-08 20:00] VITALS: BP 119/50
[2020-10-08] MEDS: MAGNESIUM OXIDE 250 MG TABLET PO SCH (20:49)
[2020-10-08] MEDS: ENOXAPARIN SODIUM 40 MG/0.4 ML DISP.SYRIN SQ SCH (20:55)
[2020-10-08] MEDS: INSULIN REGULAR, HUMAN 300 UNITS/3 ML VIAL SQ PRN (20:56)
--- NOTE | 2020-10-08 21:40 | NUR ---
Patient resting in bed. No acute distress noted. VSS. C/o 01/07 pain administered scheduled OxyContin. All due medications administered and tolerated well. BS covered per sliding scale. NO s/s of hypo/hyperglycemia. ROSCOE drainage with 20 cc in at beginning of shift. All needs attended too. Safety precautions observed all time. Kept clean, dry and comfortable. Will continue with plan of care.
[2020-10-09] MEDS: OXYCODONE/APAP 5-325 MG TABLET PO PRN ×2 (01:43→18:51)
--- NOTE | 2020-10-09 01:48 | NUR ---
c/o of pain administered Percocet per pt request. Repositioned for comfort. Kept clean and dry. Needs attend too.Davis intact, draining clear oracio yellow. Safety measures maintained. continue to monitor.
[2020-10-09 04:00] VITALS: BP 120/38
[2020-10-09] MEDS: OXYCODONE HCL 10 MG TAB.SR.12H PO SCH ×3 (06:15→21:36)
[2020-10-09 06:35] LABS: BASOPHILS % (AUTO) 0.4 % (0.0-2.0); EOSINOPHILS # (AUTO) 0.5 K/uL (0.0-0.7); HEMATOCRIT 27.9 % (31.2-41.9); HEMOGLOBIN 9.2 g/dL (10.9-14.3); LYMPHOCYTES # (AUTO) 1.9 K/uL (20.0-40.0); LYMPHOCYTES % (AUTO) 27.8 % (20.5-51.5); MEAN CORPUSCULAR HEMOGLOBIN 29.1 uug (24.7-32.8); MEAN CORPUSCULAR HGB CONC 33 g/dL (32.3-35.6); MEAN CORPUSCULAR VOLUME 88.5 fL (75.5-95.3); MONOCYTES # (AUTO) 0.8 K/uL (2.0-10.0); MONOCYTES % (AUTO) 11.4 % (0.0-11.0); NEUTROPHILS # (AUTO) 3.7 K/uL (1.8-8.9); NEUTROPHILS % (AUTO) 53.4 % (38.5-71.5); PLATELET COUNT (AUTO) 440 K/uL (179-408); RED BLOOD CELL COUNT(AUTO) 3.15 MIL/uL (3.63-4.92); WHITE BLOOD COUNT (AUTO) 6.9 K/uL (3.8-11.8)
[2020-10-09 06:41] LABS: CREATININE 1.2 mg/dL (0.6-1.3); POTASSIUM 4.1 mmol/L (3.5-5.1)
[2020-10-09] MEDS: BLOOD SUGAR DIAGNOSTIC 1 EACH STRIP VI SCH ×4 (06:47→20:26)
--- NOTE | 2020-10-09 06:54 | NUR ---
Emptied 20 cc serosanguineous drainage from ROSCOE drainage.
[2020-10-09 08:00] VITALS: BP 113/59
[2020-10-09] MEDS: CELECOXIB 200 MG CAPSULE PO SCH ×2 (10:12→20:18)
[2020-10-09] MEDS: CHOLECALCIFEROL 1,000 UNIT TABLET PO SCH (10:12)
[2020-10-09] MEDS: HYDROCHLOROTHIAZIDE 25 MG TABLET PO SCH (10:13)
[2020-10-09] MEDS: VITAMIN B COMPLEX 1 TABLET PO SCH (10:13)
[2020-10-09] MEDS: ZINC SULFATE 220 MG CAPSULE PO SCH (10:13)
[2020-10-09] MEDS: METHOCARBAMOL 500 MG TABLET PO SCH ×3 (10:14→17:00)
[2020-10-09] MEDS: ASCORBIC ACID 500 MG TABLET PO SCH (10:14)
[2020-10-09] MEDS: DOCUSATE SODIUM 100 MG CAPSULE PO SCH ×2 (10:14→20:25)
[2020-10-09] MEDS: VALSARTAN 160 MG TABLET PO SCH (10:15)
[2020-10-09] MEDS: FOLIC ACID 1 MG TABLET PO SCH (10:15)
[2020-10-09] MEDS: GLUCERNA SHAKE 237 ML CAN PO SCH ×2 (10:15→18:00)
[2020-10-09] MEDS: PROTEIN SUPPLEMENT (PROSTAT) 30 ML LIQUID PO SCH ×3 (10:17→18:00)
[2020-10-09] MEDS: ANASTROZOLE 1 MG TABLET PO SCH (10:18)
[2020-10-09] MEDS: AMLODIPINE 10 MG TABLET PO SCH (10:19)
[2020-10-09] MEDS: CYANOCOBALAMIN 100 MCG TABLET PO SCH (10:20)
[2020-10-09] MEDS: INSULIN REGULAR, HUMAN 300 UNITS/3 ML VIAL SQ PRN ×2 (12:05→20:28)
[2020-10-09 16:13] VITALS: BP 130/46
[2020-10-09] MEDS: MAGNESIUM OXIDE 250 MG TABLET PO SCH (20:19)
[2020-10-09] MEDS: ENOXAPARIN SODIUM 40 MG/0.4 ML DISP.SYRIN SQ SCH (20:25)
[2020-10-09 20:35] VITALS: BP 140/54
--- NOTE | 2020-10-09 21:52 | NUR ---
Awake alert and oriented. Watching TV most of the shift. Needs attended. VSS. Accucheck 188. Compliant with meds. Dressing to vulvar/inner buttocks intact. Davis catheter intact draining yellow urine. ROSCOE drain intact with serosanguinous drainage noted. On pain management, on Oxycontin 10 mg q8hr. Tolerated well. Right upper midline intact flushed and patent. All needs attended. Kept comfortable. No acute distress noted.
[2020-10-10 04:25] VITALS: BP 124/54
[2020-10-10] MEDS: OXYCODONE HCL 10 MG TAB.SR.12H PO SCH ×3 (05:47→22:07)
--- NOTE | 2020-10-10 06:28 | NUR ---
End of shift notes: sleeping most of the shift, but easily arousable. Dressing intact. Pain meds given as scheduled. ROSCOE drain intact with 20cc serosanguinous drainage noted. Davis catheter intact draining yellow urine. I & O monitor.
[2020-10-10] MEDS: BLOOD SUGAR DIAGNOSTIC 1 EACH STRIP VI SCH ×4 (06:35→20:35)
[2020-10-10 07:42] VITALS: BP 131/56
[2020-10-10] MEDS: CHOLECALCIFEROL 1,000 UNIT TABLET PO SCH (08:27)
[2020-10-10] MEDS: HYDROCHLOROTHIAZIDE 25 MG TABLET PO SCH (08:27)
[2020-10-10] MEDS: CELECOXIB 200 MG CAPSULE PO SCH ×2 (08:28→20:38)
[2020-10-10] MEDS: ASCORBIC ACID 500 MG TABLET PO SCH (08:29)
[2020-10-10] MEDS: VALSARTAN 160 MG TABLET PO SCH ×2 (08:29→08:49)
[2020-10-10] MEDS: METHOCARBAMOL 500 MG TABLET PO SCH ×3 (08:29→16:30)
[2020-10-10] MEDS: FOLIC ACID 1 MG TABLET PO SCH (08:29)
[2020-10-10] MEDS: CYANOCOBALAMIN 100 MCG TABLET PO SCH (08:30)
[2020-10-10] MEDS: AMLODIPINE 10 MG TABLET PO SCH (08:30)
[2020-10-10] MEDS: DOCUSATE SODIUM 100 MG CAPSULE PO SCH ×3 (08:30→20:33)
[2020-10-10] MEDS: ANASTROZOLE 1 MG TABLET PO SCH (08:34)
[2020-10-10] MEDS: VITAMIN B COMPLEX 1 TABLET PO SCH (08:34)
[2020-10-10] MEDS: GLUCERNA SHAKE 237 ML CAN PO SCH ×2 (08:35→16:30)
[2020-10-10] MEDS: PROTEIN SUPPLEMENT (PROSTAT) 30 ML LIQUID PO SCH ×3 (08:37→16:30)
[2020-10-10] MEDS: ZINC SULFATE 220 MG CAPSULE PO SCH (08:38)
[2020-10-10] MEDS: INSULIN REGULAR, HUMAN 300 UNIT/3 ML VIAL SQ PRN ×2 (11:42→16:29)
[2020-10-10 16:42] VITALS: BP 115/44
--- NOTE | 2020-10-10 17:44 | NUR ---
dressing changed to perineal wound, ROSCOE drain only 5ml, wound is dry and clean, PICC line dressing changed.
[2020-10-10] MEDS: MAGNESIUM OXIDE 250 MG TABLET PO SCH (20:33)
[2020-10-10] MEDS: ENOXAPARIN SODIUM 40 MG/0.4 ML DISP.SYRIN SQ SCH (20:35)
[2020-10-10] MEDS: INSULIN REGULAR, HUMAN 300 UNITS/3 ML VIAL SQ PRN (20:36)
[2020-10-10 20:41] VITALS: BP 120/58
--- NOTE | 2020-10-10 20:55 | NUR ---
Received pt sleeping comfortably. Aroused easily to verbal stimuli. Alert and oriented x4. No acute distress noted. Denies pain/ discomfort. Due meds given as ordered. Accucheck 154, insulin coverage given as per sliding scale. Davis catheter draining well with clear yellow colored urine. ROSCOE drain patent and intact. Air mattress in place. Safety measures maintained. Call light and personal items within reach. Will continue to monitor.
[2020-10-11 04:10] VITALS: BP 139/58
[2020-10-11] MEDS: OXYCODONE HCL 10 MG TAB.SR.12H PO SCH ×3 (06:05→22:16)
[2020-10-11] MEDS: BLOOD SUGAR DIAGNOSTIC 1 EACH STRIP VI SCH ×4 (06:36→20:59)
--- NOTE | 2020-10-11 06:45 | NUR ---
ROSCOE drainage output 3cc serosanguineous color.
[2020-10-11 06:51] LABS: BASOPHILS % (AUTO) 0.4 % (0.0-2.0); EOSINOPHILS # (AUTO) 0.4 K/uL (0.0-0.7); HEMATOCRIT 30.6 % (31.2-41.9); LYMPHOCYTES # (AUTO) 2.3 K/uL (20.0-40.0); LYMPHOCYTES % (AUTO) 31.3 % (20.5-51.5); MEAN CORPUSCULAR HEMOGLOBIN 28.8 uug (24.7-32.8); MEAN CORPUSCULAR HGB CONC 33 g/dL (32.3-35.6); MEAN CORPUSCULAR VOLUME 88.2 fL (75.5-95.3); MONOCYTES # (AUTO) 0.9 K/uL (2.0-10.0); MONOCYTES % (AUTO) 12.3 % (0.0-11.0); NEUTROPHILS # (AUTO) 3.7 K/uL (1.8-8.9); PLATELET COUNT (AUTO) 515 K/uL (179-408); RED BLOOD CELL COUNT(AUTO) 3.47 MIL/uL (3.63-4.92); WHITE BLOOD COUNT (AUTO) 7.3 K/uL (3.8-11.8)
[2020-10-11 07:03] LABS: MAGNESIUM 2.3 mg/dL (1.8-2.4); POTASSIUM 4.4 mmol/L (3.5-5.1)
[2020-10-11 08:00] VITALS: BP 111/54
[2020-10-11] MEDS: DOCUSATE SODIUM 100 MG CAPSULE PO SCH ×2 (09:00→20:57)
[2020-10-11] MEDS: PROTEIN SUPPLEMENT (PROSTAT) 30 ML LIQUID PO SCH ×2 (09:00→17:00)
[2020-10-11] MEDS: FOLIC ACID 1 MG TABLET PO SCH (09:12)
[2020-10-11] MEDS: GLUCERNA SHAKE 237 ML CAN PO SCH ×2 (09:12→17:39)
[2020-10-11] MEDS: CHOLECALCIFEROL 1,000 UNIT TABLET PO SCH (09:13)
[2020-10-11] MEDS: ASCORBIC ACID 500 MG TABLET PO SCH (09:13)
[2020-10-11] MEDS: METHOCARBAMOL 500 MG TABLET PO SCH ×3 (09:13→17:40)
[2020-10-11] MEDS: ZINC SULFATE 220 MG CAPSULE PO SCH (09:13)
[2020-10-11] MEDS: CELECOXIB 200 MG CAPSULE PO SCH ×2 (09:13→20:57)
[2020-10-11] MEDS: CYANOCOBALAMIN 100 MCG TABLET PO SCH (09:14)
[2020-10-11] MEDS: VITAMIN B COMPLEX 1 TABLET PO SCH (09:14)
[2020-10-11] MEDS: ANASTROZOLE 1 MG TABLET PO SCH (09:16)
[2020-10-11] MEDS: HYDROCHLOROTHIAZIDE 25 MG TABLET PO SCH (09:21)
[2020-10-11] MEDS: VALSARTAN 160 MG TABLET PO SCH (09:21)
[2020-10-11] MEDS: AMLODIPINE 10 MG TABLET PO SCH (09:21)
[2020-10-11] MEDS: INSULIN REGULAR, HUMAN 300 UNIT/3 ML VIAL SQ PRN ×2 (12:04→17:43)
[2020-10-11 16:23] VITALS: BP 111/45
--- NOTE | 2020-10-11 18:52 | NUR ---
EOSS: Pt in bed, watching TV, A&Ox4, able to verbalize needs throughout shift. No acute distress noted. Pt denies pain/discomfort at this time. VSS at this time. Due medications given per order. Wound treatment administered per order. KETURAH midline patent and intact. Davis catheter patent, draining yellow urine. ROSCOE drain emptied with 15 mL of serosanguineous output. Safety measures and fall precautions maintained. Call light and belongings within reach. Will endorse care to fast food attendant nurse.
[2020-10-11 20:03] VITALS: BP 119/49
[2020-10-11] MEDS: MAGNESIUM OXIDE 250 MG TABLET PO SCH (20:57)
[2020-10-11] MEDS: ENOXAPARIN SODIUM 40 MG/0.4 ML DISP.SYRIN SQ SCH (20:58)
[2020-10-11] MEDS: INSULIN REGULAR, HUMAN 300 UNITS/3 ML VIAL SQ PRN (21:01)
--- NOTE | 2020-10-11 22:10 | NUR ---
Received pt sleeping comfortably. Aroused easily to verbal stimuli. Alert and oriented x4. No acute distress noted. Denies pain/ discomfort. Due meds given as ordered. Accu check 165 insulin coverage given as per sliding scale. Davis catheter draining well with clear yellow colored urine. ROSCOE drain patent and intact. Air mattress in place. Safety measures maintained. Call light and personal items within reach. Will continue to monitor.
[2020-10-12 04:06] VITALS: BP 133/51
--- NOTE | 2020-10-12 04:49 | NUR ---
Patient slept well through out the night with no c/o pain or discomfort. Dressing intact. routine Pain meds administered as scheduled. and helped, ROSCOE drain intact with serosanguineous drainage noted. wound care dressing changed tolerated well. kept clean and dry,Davis catheter intact draining yellow urine. I & O monitor.
[2020-10-12] MEDS: OXYCODONE HCL 10 MG TAB.SR.12H PO SCH ×3 (06:15→21:04)
[2020-10-12] MEDS: BLOOD SUGAR DIAGNOSTIC 1 EACH STRIP VI SCH ×4 (06:35→20:16)
--- NOTE | 2020-10-12 07:08 | NUR ---
ROSCOE drainage output 10 cc serosanguineous in color, dressing intact at wound area. will endorse accordingly.
[2020-10-12 07:17] LABS: BASOPHILS % (AUTO) 0.4 % (0.0-2.0); EOSINOPHILS # (AUTO) 0.5 K/uL (0.0-0.7); EOSINOPHILS % (AUTO) 5.2 % (0.0-7.0); HEMATOCRIT 31.6 % (31.2-41.9); HEMOGLOBIN 10.4 g/dL (10.9-14.3); LYMPHOCYTES # (AUTO) 2.9 K/uL (20.0-40.0); LYMPHOCYTES % (AUTO) 33.1 % (20.5-51.5); MEAN CORPUSCULAR HEMOGLOBIN 29.1 uug (24.7-32.8); MEAN CORPUSCULAR HGB CONC 33 g/dL (32.3-35.6); MEAN CORPUSCULAR VOLUME 88.3 fL (75.5-95.3); MONOCYTES # (AUTO) 1.1 K/uL (2.0-10.0); MONOCYTES % (AUTO) 12.7 % (0.0-11.0); NEUTROPHILS # (AUTO) 4.3 K/uL (1.8-8.9); NEUTROPHILS % (AUTO) 48.6 % (38.5-71.5); PLATELET COUNT (AUTO) 517 K/uL (179-408); RED BLOOD CELL COUNT(AUTO) 3.58 MIL/uL (3.63-4.92); WHITE BLOOD COUNT (AUTO) 8.9 K/uL (3.8-11.8)
[2020-10-12 07:25] LABS: CREATININE 1.1 mg/dL (0.6-1.3); POTASSIUM 4.4 mmol/L (3.5-5.1)
[2020-10-12 08:13] VITALS: BP 115/45
[2020-10-12] MEDS: CYANOCOBALAMIN 100 MCG TABLET PO SCH (08:31)
[2020-10-12] MEDS: CHOLECALCIFEROL 1,000 UNIT TABLET PO SCH (08:31)
[2020-10-12] MEDS: DOCUSATE SODIUM 100 MG CAPSULE PO SCH ×2 (08:31→20:20)
[2020-10-12] MEDS: ASCORBIC ACID 500 MG TABLET PO SCH (08:32)
[2020-10-12] MEDS: CELECOXIB 200 MG CAPSULE PO SCH ×2 (08:32→20:20)
[2020-10-12] MEDS: ZINC SULFATE 220 MG CAPSULE PO SCH (08:32)
[2020-10-12] MEDS: FOLIC ACID 1 MG TABLET PO SCH (08:32)
[2020-10-12] MEDS: METHOCARBAMOL 500 MG TABLET PO SCH ×3 (08:33→17:11)
[2020-10-12] MEDS: HYDROCHLOROTHIAZIDE 25 MG TABLET PO SCH (08:36)
[2020-10-12] MEDS: ANASTROZOLE 1 MG TABLET PO SCH (08:47)
[2020-10-12] MEDS: VITAMIN B COMPLEX 1 TABLET PO SCH (08:48)
[2020-10-12] MEDS: PROTEIN SUPPLEMENT (PROSTAT) 30 ML LIQUID PO SCH ×2 (08:49→17:00)
[2020-10-12] MEDS: GLUCERNA SHAKE 237 ML CAN PO SCH ×2 (08:49→17:21)
[2020-10-12] MEDS: VALSARTAN 160 MG TABLET PO SCH (09:55)
[2020-10-12] MEDS: AMLODIPINE 10 MG TABLET PO SCH (09:55)
[2020-10-12] MEDS: INSULIN REGULAR, HUMAN 300 UNIT/3 ML VIAL SQ PRN ×2 (11:33→16:22)
[2020-10-12 16:36] VITALS: BP 120/51
[2020-10-12 20:03] VITALS: BP 135/53
[2020-10-12] MEDS: INSULIN REGULAR, HUMAN 300 UNITS/3 ML VIAL SQ PRN (20:19)
[2020-10-12] MEDS: MAGNESIUM OXIDE 250 MG TABLET PO SCH (20:20)
[2020-10-12] MEDS: ENOXAPARIN SODIUM 40 MG/0.4 ML DISP.SYRIN SQ SCH (20:21)
--- NOTE | 2020-10-12 21:52 | NUR ---
Received patient sleeping comfortably. Aroused easily to verbal stimuli. Alert and oriented x4. No acute distress noted. c/o pain on scale 6/10 Due medication administered as ordered. Accu check,156 insulin coverage given as per sliding scale. Davis catheter draining well with clear yellow colored urine. ROSCOE draining 20cc serosanguineous output patent and intact. routine pain medication administered as ordered helped, wound treatment done as needed healing well, Air mattress in place. Safety measures maintained. Call light and personal items within reach. Will continue to monitor.
[2020-10-13] MEDS: OXYCODONE/APAP 5-325 MG TABLET PO PRN (03:08)
[2020-10-13 04:40] VITALS: BP 136/67
[2020-10-13] MEDS: OXYCODONE HCL 10 MG TAB.SR.12H PO SCH ×3 (06:33→21:43)
[2020-10-13] MEDS: BLOOD SUGAR DIAGNOSTIC 1 EACH STRIP VI SCH ×4 (06:58→21:04)
[2020-10-13 08:00] VITALS: BP 152/55
[2020-10-13] MEDS: DOCUSATE SODIUM 100 MG CAPSULE PO SCH ×2 (08:10→21:03)
[2020-10-13] MEDS: METHOCARBAMOL 500 MG TABLET PO SCH ×3 (08:10→17:40)
[2020-10-13] MEDS: AMLODIPINE 10 MG TABLET PO SCH (08:10)
[2020-10-13] MEDS: ZINC SULFATE 220 MG CAPSULE PO SCH (08:11)
[2020-10-13] MEDS: CHOLECALCIFEROL 1,000 UNIT TABLET PO SCH (08:11)
[2020-10-13] MEDS: HYDROCHLOROTHIAZIDE 25 MG TABLET PO SCH (08:11)
[2020-10-13] MEDS: ASCORBIC ACID 500 MG TABLET PO SCH (08:11)
[2020-10-13] MEDS: CELECOXIB 200 MG CAPSULE PO SCH ×2 (08:11→21:03)
[2020-10-13] MEDS: CYANOCOBALAMIN 100 MCG TABLET PO SCH (08:12)
[2020-10-13] MEDS: FOLIC ACID 1 MG TABLET PO SCH (08:12)
[2020-10-13] MEDS: VITAMIN B COMPLEX 1 TABLET PO SCH (08:13)
[2020-10-13] MEDS: ANASTROZOLE 1 MG TABLET PO SCH (08:14)
[2020-10-13] MEDS: VALSARTAN 160 MG TABLET PO SCH (08:15)
[2020-10-13] MEDS: GLUCERNA SHAKE 237 ML CAN PO SCH ×2 (08:15→17:39)
[2020-10-13] MEDS: PROTEIN SUPPLEMENT (PROSTAT) 30 ML LIQUID PO SCH ×2 (08:16→17:00)
[2020-10-13] MEDS: INSULIN REGULAR, HUMAN 300 UNIT/3 ML VIAL SQ PRN (12:08)
[2020-10-13 16:00] VITALS: BP 136/44
--- NOTE | 2020-10-13 18:38 | NUR ---
Patient remains alert, oriented x 4, not in any form of distress, on room air during the shift. She denies any pain or discomfort. Patient compliant with medications and participated with PT. Assisted with her needs promptly. Dressing change done to the vulvar and buttock surgical incision site with no signs and symptoms of infection. ROSCOE drain emptied with 20 ml of sero-sanguinous fluid. Davis catheter in place and patent draining clear yellow urine. Call light and frequently used items placed within patient's reach. Will continue to monitor and will endorse accordingly.
[2020-10-13 20:11] VITALS: BP 108/61
[2020-10-13] MEDS: ENOXAPARIN SODIUM 40 MG/0.4 ML DISP.SYRIN SQ SCH (21:03)
[2020-10-13] MEDS: INSULIN REGULAR, HUMAN 300 UNITS/3 ML VIAL SQ PRN (21:03)
[2020-10-13] MEDS: MAGNESIUM OXIDE 250 MG TABLET PO SCH (21:04)
--- NOTE | 2020-10-13 22:02 | NUR ---
Received pt resting comfortably. No acute distress noted. Due meds given as ordered. Accucheck 195, insulin coverage given as per sliding scale. C?o of mild 5/10 pain administered scheduled OXYCONTIN. Davis catheter draining well with clear yellow colored urine. ROSCOE drain patent and intact, emptied 5cc of mix of sero-sanguinous fluid and slight purulent, thin yellow drainage. Dressing change done to the vulvar and buttock surgical incision site with no signs and symptoms of infection. Picture taken and placed in chart. Air mattress in place. Safety measures maintained. Call light and personal items within reach. Will continue to monitor.
[2020-10-14] MEDS: OXYCODONE/APAP 5-325 MG TABLET PO PRN (02:14)
--- NOTE | 2020-10-14 02:21 | NUR ---
c/o of pain 02/06 administered Percocet per pt request. Repositioned for comfort. Needs attened to promptly. Safety measures maintained. continue to monitor.
[2020-10-14 04:45] VITALS: BP 144/64
[2020-10-14] MEDS: OXYCODONE HCL 10 MG TAB.SR.12H PO SCH ×3 (06:17→21:55)
[2020-10-14] MEDS: BLOOD SUGAR DIAGNOSTIC 1 EACH STRIP VI SCH ×4 (06:48→20:35)
[2020-10-14 06:52] LABS: BASOPHILS % (AUTO) 0.3 % (0.0-2.0); EOSINOPHILS # (AUTO) 0.4 K/uL (0.0-0.7); EOSINOPHILS % (AUTO) 4.8 % (0.0-7.0); HEMOGLOBIN 10.3 g/dL (10.9-14.3); LYMPHOCYTES # (AUTO) 2.5 K/uL (20.0-40.0); LYMPHOCYTES % (AUTO) 30.6 % (20.5-51.5); MEAN CORPUSCULAR HEMOGLOBIN 28.8 uug (24.7-32.8); MEAN CORPUSCULAR HGB CONC 33 g/dL (32.3-35.6); MEAN CORPUSCULAR VOLUME 86.6 fL (75.5-95.3); MONOCYTES # (AUTO) 0.9 K/uL (2.0-10.0); MONOCYTES % (AUTO) 10.9 % (0.0-11.0); NEUTROPHILS # (AUTO) 4.4 K/uL (1.8-8.9); NEUTROPHILS % (AUTO) 53.4 % (38.5-71.5); PLATELET COUNT (AUTO) 509 K/uL (179-408); RED BLOOD CELL COUNT(AUTO) 3.59 MIL/uL (3.63-4.92); WHITE BLOOD COUNT (AUTO) 8.2 K/uL (3.8-11.8)
[2020-10-14 07:05] LABS: CREATININE 1.2 mg/dL (0.6-1.3); MAGNESIUM 2.4 mg/dL (1.8-2.4); PHOSPHOROUS 5.1 mg/dL (2.5-4.9); POTASSIUM 4.3 mmol/L (3.5-5.1)
[2020-10-14 08:00] VITALS: BP 137/52
[2020-10-14] MEDS: DOCUSATE SODIUM 100 MG CAPSULE PO SCH ×2 (08:17→20:25)
[2020-10-14] MEDS: CELECOXIB 200 MG CAPSULE PO SCH ×2 (08:17→20:24)
[2020-10-14] MEDS: ASCORBIC ACID 500 MG TABLET PO SCH (08:17)
[2020-10-14] MEDS: ZINC SULFATE 220 MG CAPSULE PO SCH (08:17)
[2020-10-14] MEDS: CHOLECALCIFEROL 1,000 UNIT TABLET PO SCH (08:17)
[2020-10-14] MEDS: METHOCARBAMOL 500 MG TABLET PO SCH ×3 (08:18→17:54)
[2020-10-14] MEDS: CYANOCOBALAMIN 100 MCG TABLET PO SCH (08:18)
[2020-10-14] MEDS: FOLIC ACID 1 MG TABLET PO SCH (08:18)
[2020-10-14] MEDS: HYDROCHLOROTHIAZIDE 25 MG TABLET PO SCH (08:19)
[2020-10-14] MEDS: AMLODIPINE 10 MG TABLET PO SCH (08:19)
[2020-10-14] MEDS: VALSARTAN 160 MG TABLET PO SCH (08:20)
[2020-10-14] MEDS: ANASTROZOLE 1 MG TABLET PO SCH (08:21)
[2020-10-14] MEDS: VITAMIN B COMPLEX 1 TABLET PO SCH (08:21)
[2020-10-14] MEDS: GLUCERNA SHAKE 237 ML CAN PO SCH (08:24)
[2020-10-14] MEDS: PROTEIN SUPPLEMENT (PROSTAT) 30 ML LIQUID PO SCH ×2 (08:25→17:00)
[2020-10-14] MEDS: INSULIN REGULAR, HUMAN 300 UNIT/3 ML VIAL SQ PRN ×2 (12:26→18:10)
[2020-10-14 15:44] VITALS: BP 126/46
--- NOTE | 2020-10-14 19:00 | NUR ---
EOSS: Pt watching TV, A&Ox4, able to verbalize needs throughout shift. No acute distress noted. Pt denies pain/discomfort at this time. VSS at this time. Due medications given per order. Wound treatment administered per order with ISABELLA Biggs at bedside. ROSCOE drain emptied with 15 mL of serous output. Davis catheter patent, draining yellow urine. Safety measures and fall precautions maintained. Call light and belongings within reach. Will endorse care to hand inspector nurse.
[2020-10-14 20:00] VITALS: BP 142/46
[2020-10-14] MEDS: MAGNESIUM OXIDE 250 MG TABLET PO SCH (20:25)
[2020-10-14] MEDS: INSULIN REGULAR, HUMAN 300 UNITS/3 ML VIAL SQ PRN (20:33)
[2020-10-14] MEDS: ENOXAPARIN SODIUM 40 MG/0.4 ML DISP.SYRIN SQ SCH (20:34)
--- NOTE | 2020-10-14 21:28 | NUR ---
AAOx4 Watching TV upon rounds. Needs attended. VSS. Accucheck 203, 4units insulin given as coverage. Pain meds given at scheduled times. Compliant with meds. No acute distress noted. Kept comfortable. Dressing intact to vulvar/ buttocks. ROSCOE drain intact with minimal amount of serosanguinous drainage noted. Davis catheter draining yellow urine. I & O monitor. fall precautions maintained. Siderails up for safety.
[2020-10-15 04:44] VITALS: BP 139/60
[2020-10-15] MEDS: OXYCODONE HCL 10 MG TAB.SR.12H PO SCH ×3 (05:41→22:11)
--- NOTE | 2020-10-15 06:18 | NUR ---
End of shift notes: Quiet night. No distress noted. VSS. All due meds given. Oxycontin 10 mg given as scheduled. No distress noted. ROSCOE drain intact with 10 cc sanguinous drainage noted. Davis catheter intact with good amount of urine noted.
[2020-10-15] MEDS: BLOOD SUGAR DIAGNOSTIC 1 EACH STRIP VI SCH ×4 (06:38→20:05)
[2020-10-15 07:31] VITALS: BP 137/54
[2020-10-15] MEDS: METHOCARBAMOL 500 MG TABLET PO SCH ×3 (08:16→16:47)
[2020-10-15] MEDS: CHOLECALCIFEROL 1,000 UNIT TABLET PO SCH (08:16)
[2020-10-15] MEDS: FOLIC ACID 1 MG TABLET PO SCH (08:16)
[2020-10-15] MEDS: CELECOXIB 200 MG CAPSULE PO SCH ×2 (08:16→20:05)
[2020-10-15] MEDS: HYDROCHLOROTHIAZIDE 25 MG TABLET PO SCH (08:17)
[2020-10-15] MEDS: DOCUSATE SODIUM 100 MG CAPSULE PO SCH ×2 (08:17→20:05)
[2020-10-15] MEDS: CYANOCOBALAMIN 100 MCG TABLET PO SCH (08:18)
[2020-10-15] MEDS: ZINC SULFATE 220 MG CAPSULE PO SCH (08:19)
[2020-10-15] MEDS: AMLODIPINE 10 MG TABLET PO SCH (08:19)
[2020-10-15] MEDS: ASCORBIC ACID 500 MG TABLET PO SCH (08:19)
[2020-10-15] MEDS: VALSARTAN 160 MG TABLET PO SCH (08:19)
[2020-10-15] MEDS: ANASTROZOLE 1 MG TABLET PO SCH (08:20)
[2020-10-15] MEDS: VITAMIN B COMPLEX 1 TABLET PO SCH (08:21)
[2020-10-15] MEDS: PROTEIN SUPPLEMENT (PROSTAT) 30 ML LIQUID PO SCH ×2 (08:22→16:48)
[2020-10-15] MEDS: GLUCERNA SHAKE 237 ML CAN PO SCH (08:22)
[2020-10-15] MEDS: INSULIN REGULAR, HUMAN 300 UNIT/3 ML VIAL SQ PRN ×2 (11:49→16:46)
[2020-10-15 16:00] VITALS: BP 105/47
--- NOTE | 2020-10-15 18:31 | NUR ---
Patient is alert, oriented x 4, not in any form of distress, on room air. No complain of any pain or discomfort at this time. Due medications administered and tolerated well. Assisted with her needs promptly. Patient participated with PT and OT. Emptied ROSCOE drain, noted with 10ml of sero-sanguinous fluid. Davis catheter in place and patent draining clear yellow urine. Call light and frequently used items placed within patient's reach.
[2020-10-15 20:00] VITALS: BP 129/49
[2020-10-15] MEDS: MAGNESIUM OXIDE 250 MG TABLET PO SCH (20:05)
[2020-10-15] MEDS: ENOXAPARIN SODIUM 40 MG/0.4 ML DISP.SYRIN SQ SCH (20:13)
[2020-10-15] MEDS: INSULIN REGULAR, HUMAN 300 UNITS/3 ML VIAL SQ PRN (20:26)
--- NOTE | 2020-10-15 20:26 | NUR ---
Received pt resting in bed and watching tv. AAO x4. No acute distress noted. Denies pain/ discomfort at this time. Due meds given as ordered. Blood sugar 128, no insulin coverage as per sliding scale. No s/s of hypo/hyper glycemia. Snack given. Davis catheter draining well with clear yellow colored urine. No s/s infection on surgical site. ROSCOE drainage in place. Air mattress in place. Safety measures maintained. Call light and personal items within reach. Will continue to monitor.
[2020-10-16 04:00] VITALS: BP 136/67
[2020-10-16] MEDS: OXYCODONE HCL 10 MG TAB.SR.12H PO SCH ×3 (06:16→21:09)
[2020-10-16] MEDS: BLOOD SUGAR DIAGNOSTIC 1 EACH STRIP VI SCH ×4 (06:38→21:06)
--- NOTE | 2020-10-16 06:38 | NUR ---
ROSCOE drainage output 12cc with light brown colored drainage.
[2020-10-16 07:52] VITALS: BP 119/63
[2020-10-16] MEDS: INSULIN REGULAR, HUMAN 300 UNIT/3 ML VIAL SQ PRN ×3 (08:01→16:47)
[2020-10-16] MEDS: ASCORBIC ACID 500 MG TABLET PO SCH (08:20)
[2020-10-16] MEDS: CHOLECALCIFEROL 1,000 UNIT TABLET PO SCH (08:20)
[2020-10-16] MEDS: DOCUSATE SODIUM 100 MG CAPSULE PO SCH ×2 (08:20→21:01)
[2020-10-16] MEDS: ZINC SULFATE 220 MG CAPSULE PO SCH (08:20)
[2020-10-16] MEDS: FOLIC ACID 1 MG TABLET PO SCH (08:20)
[2020-10-16] MEDS: CELECOXIB 200 MG CAPSULE PO SCH ×2 (08:21→21:01)
[2020-10-16] MEDS: AMLODIPINE 10 MG TABLET PO SCH (08:21)
[2020-10-16] MEDS: CYANOCOBALAMIN 100 MCG TABLET PO SCH (08:21)
[2020-10-16] MEDS: HYDROCHLOROTHIAZIDE 25 MG TABLET PO SCH (08:21)
[2020-10-16] MEDS: METHOCARBAMOL 500 MG TABLET PO SCH ×3 (08:22→16:46)
[2020-10-16] MEDS: ANASTROZOLE 1 MG TABLET PO SCH (08:23)
[2020-10-16] MEDS: PROTEIN SUPPLEMENT (PROSTAT) 30 ML LIQUID PO SCH ×2 (08:23→16:46)
[2020-10-16] MEDS: VITAMIN B COMPLEX 1 TABLET PO SCH (08:23)
[2020-10-16] MEDS: GLUCERNA SHAKE 237 ML CAN PO SCH (08:24)
[2020-10-16] MEDS: VALSARTAN 160 MG TABLET PO SCH (08:25)
[2020-10-16 16:01] VITALS: BP 144/56
--- NOTE | 2020-10-16 18:57 | NUR ---
adrian drain still intact 5cc for whole shift Addendum: 10/16/20 at 1858 by LUIZA PALENCIA RN, RN no other changes noted, no distress noted, perineal incision is clean and dry.
--- NOTE | 2020-10-16 19:27 | NUR ---
adrian drain output is 5cc, yellow color
[2020-10-16 20:00] VITALS: BP 113/54
[2020-10-16] MEDS: MAGNESIUM OXIDE 250 MG TABLET PO SCH (21:01)
[2020-10-16] MEDS: ENOXAPARIN SODIUM 40 MG/0.4 ML DISP.SYRIN SQ SCH (21:02)
[2020-10-16] MEDS: INSULIN REGULAR, HUMAN 300 UNITS/3 ML VIAL SQ PRN (21:08)
[2020-10-17 04:00] VITALS: BP 135/56
[2020-10-17] MEDS: OXYCODONE HCL 10 MG TAB.SR.12H PO SCH ×3 (06:04→22:06)
[2020-10-17] MEDS: BLOOD SUGAR DIAGNOSTIC 1 EACH STRIP VI SCH ×4 (06:11→20:49)
--- NOTE | 2020-10-17 06:37 | NUR ---
Shift End Report: Vs stable. Slept well. All needs attended and met. No significant event reported all night. Continue current rehab plan of care.
[2020-10-17 08:00] VITALS: BP 124/58
[2020-10-17] MEDS: DOCUSATE SODIUM 100 MG CAPSULE PO SCH ×2 (08:58→20:38)
[2020-10-17] MEDS: CELECOXIB 200 MG CAPSULE PO SCH ×2 (08:59→20:38)
[2020-10-17] MEDS: HYDROCHLOROTHIAZIDE 25 MG TABLET PO SCH (08:59)
[2020-10-17] MEDS: AMLODIPINE 10 MG TABLET PO SCH (08:59)
[2020-10-17] MEDS: ZINC SULFATE 220 MG CAPSULE PO SCH (08:59)
[2020-10-17] MEDS: METHOCARBAMOL 500 MG TABLET PO SCH ×3 (09:00→16:49)
[2020-10-17] MEDS: CHOLECALCIFEROL 1,000 UNIT TABLET PO SCH (09:00)
[2020-10-17] MEDS: VALSARTAN 160 MG TABLET PO SCH (09:00)
[2020-10-17] MEDS: FOLIC ACID 1 MG TABLET PO SCH (09:00)
[2020-10-17] MEDS: ASCORBIC ACID 500 MG TABLET PO SCH (09:00)
[2020-10-17] MEDS: CYANOCOBALAMIN 100 MCG TABLET PO SCH (09:03)
[2020-10-17] MEDS: VITAMIN B COMPLEX 1 TABLET PO SCH (09:05)
[2020-10-17] MEDS: ANASTROZOLE 1 MG TABLET PO SCH (09:05)
[2020-10-17] MEDS: INSULIN REGULAR, HUMAN 300 UNIT/3 ML VIAL SQ PRN ×3 (09:13→17:34)
[2020-10-17] MEDS: PROTEIN SUPPLEMENT (PROSTAT) 30 ML LIQUID PO SCH ×2 (09:15→16:49)
[2020-10-17] MEDS: GLUCERNA SHAKE 237 ML CAN PO SCH (09:15)
[2020-10-17 13:57] LABS: *BILIRUBIN,URIN NEGATIVE (NEGATIVE); *COLOR,URINE YELLOW (YELLOW); *KETONES,URINE NEGATIVE (NEGATIVE); *UROBILINOGEN,URINE 0.2 E.U./dl (NORMAL); LEUKOCYTE ESTERASE ,URINE 2+ (NEGATIVE); NITRITE, URINE POSITIVE (NEGATIVE); UGLUCOSE NEGATIVE (NEGATIVE)
[2020-10-17 14:25] LABS: *BLOOD, URINE TRACE (NEGATIVE)
[2020-10-17 14:28] LABS: *CLARITY,URINE HAZY (CLEAR); BACTERIA,URINE MODERATE /HPF (NONE SEEN); SQUAMOUS EPITHELIAL CELL,UR FEW /HPF (NONE SEEN)
[2020-10-17 14:29] LABS: URINE AMORPHOUS PHOSPHATES FEW /HPF
[2020-10-17 15:44] VITALS: BP 124/48
--- NOTE | 2020-10-17 19:30 | NUR ---
Awake during initial rounds. greeted with pleasant smile. Denies any pain/discomforts at this time. ROSCOE intact and patent with small amount of dark cloudy yellow drainage in 4 ml. Wound dressing to affected areas clean and dry. F/C intact, draining moderate amount of yellow colored output. Safety measures and fall prevention maintained. On special mattress for skin management. Continue care as planned.
[2020-10-17 20:39] VITALS: BP 115/58
[2020-10-17] MEDS: MAGNESIUM OXIDE 250 MG TABLET PO SCH (20:39)
[2020-10-17] MEDS: ENOXAPARIN SODIUM 40 MG/0.4 ML DISP.SYRIN SQ SCH (20:40)
[2020-10-17] MEDS: INSULIN REGULAR, HUMAN 300 UNITS/3 ML VIAL SQ PRN (20:51)
[2020-10-18 04:30] VITALS: BP 150/76
--- NOTE | 2020-10-18 05:40 | NUR ---
Shift End Report: Slept well. No significant event reported all night. Vs stable. No acute respiratory distress noted.
[2020-10-18] MEDS: OXYCODONE HCL 10 MG TAB.SR.12H PO SCH ×3 (06:13→21:53)
[2020-10-18] MEDS: BLOOD SUGAR DIAGNOSTIC 1 EACH STRIP VI SCH ×4 (06:23→20:36)
[2020-10-18 06:49] LABS: BASOPHILS % (AUTO) 0.4 % (0.0-2.0); EOSINOPHILS # (AUTO) 0.3 K/uL (0.0-0.7); EOSINOPHILS % (AUTO) 3.6 % (0.0-7.0); HEMATOCRIT 31.9 % (31.2-41.9); HEMOGLOBIN 10.6 g/dL (10.9-14.3); LYMPHOCYTES # (AUTO) 2.8 K/uL (20.0-40.0); LYMPHOCYTES % (AUTO) 33.4 % (20.5-51.5); MEAN CORPUSCULAR HEMOGLOBIN 28.7 uug (24.7-32.8); MEAN CORPUSCULAR HGB CONC 33 g/dL (32.3-35.6); MEAN CORPUSCULAR VOLUME 86.7 fL (75.5-95.3); MONOCYTES # (AUTO) 0.9 K/uL (2.0-10.0); MONOCYTES % (AUTO) 10.9 % (0.0-11.0); NEUTROPHILS # (AUTO) 4.3 K/uL (1.8-8.9); NEUTROPHILS % (AUTO) 51.7 % (38.5-71.5); PLATELET COUNT (AUTO) 567 K/uL (179-408); RED BLOOD CELL COUNT(AUTO) 3.68 MIL/uL (3.63-4.92); WHITE BLOOD COUNT (AUTO) 8.3 K/uL (3.8-11.8)
[2020-10-18 06:59] LABS: CARBON DIOXIDE 29 mmol/L (21-32); CHLORIDE 101 mmol/L (98-107); GLUCOSE 113 mg/dL (74-106); POTASSIUM 4.1 mmol/L (3.5-5.1); UREA NITROGEN, BLOOD 28 mg/dL (7-18)
[2020-10-18 08:00] VITALS: BP 129/51
[2020-10-18] MEDS: GLUCERNA SHAKE 237 ML CAN PO SCH (09:00)
[2020-10-18] MEDS: PROTEIN SUPPLEMENT (PROSTAT) 30 ML LIQUID PO SCH ×2 (09:00→16:39)
[2020-10-18] MEDS: VALSARTAN 160 MG TABLET PO SCH (09:16)
[2020-10-18] MEDS: CELECOXIB 200 MG CAPSULE PO SCH ×2 (09:16→20:41)
[2020-10-18] MEDS: ANASTROZOLE 1 MG TABLET PO SCH (09:16)
[2020-10-18] MEDS: HYDROCHLOROTHIAZIDE 25 MG TABLET PO SCH (09:17)
[2020-10-18] MEDS: FOLIC ACID 1 MG TABLET PO SCH (09:17)
[2020-10-18] MEDS: ZINC SULFATE 220 MG CAPSULE PO SCH (09:17)
[2020-10-18] MEDS: ASCORBIC ACID 500 MG TABLET PO SCH (09:17)
[2020-10-18] MEDS: METHOCARBAMOL 500 MG TABLET PO SCH ×3 (09:17→17:09)
[2020-10-18] MEDS: DOCUSATE SODIUM 100 MG CAPSULE PO SCH ×2 (09:17→20:41)
[2020-10-18] MEDS: AMLODIPINE 10 MG TABLET PO SCH (09:17)
[2020-10-18] MEDS: CHOLECALCIFEROL 1,000 UNIT TABLET PO SCH (09:18)
[2020-10-18] MEDS: CYANOCOBALAMIN 100 MCG TABLET PO SCH (09:18)
[2020-10-18] MEDS: VITAMIN B COMPLEX 1 TABLET PO SCH (09:18)
[2020-10-18] MEDS: INSULIN REGULAR, HUMAN 300 UNIT/3 ML VIAL SQ PRN ×3 (12:13→20:38)
--- NOTE | 2020-10-18 12:17 | NUR ---
patient in bed alert and verbally responsive. Denies of any pain at this time. Call light placed within easy reach all needs met promptly. All due meds given as ordered. Will continue to monitor. F/C draining well and ROSCOE drain draining well . Will cotinue to monitor.
--- NOTE | 2020-10-18 15:00 | NUR ---
Dr. Johnson ordered for Cephalexin cap 250mg every 8 hours for UTI. Wound treatment done. ROSCOE intact with drainage of 10cc drainage at this time. F/C draining well. Fall precaution maintained. All needs met promptly. Will continue to monitor.
[2020-10-18] MEDS: CEphaleXIN 250 MG CAPSULE PO SCH ×2 (15:46→21:53)
[2020-10-18 16:13] VITALS: BP 108/52
[2020-10-18 20:13] VITALS: BP 129/44
[2020-10-18] MEDS: MAGNESIUM OXIDE 250 MG TABLET PO SCH (20:41)
[2020-10-18] MEDS: ENOXAPARIN SODIUM 40 MG/0.4 ML DISP.SYRIN SQ SCH (20:46)
--- NOTE | 2020-10-18 22:30 | NUR ---
Received patient resting in bed No acute distress noted. all due meds administered on po ATB for UTI no ADR noted encouraged fluid intake as tolerated Accu check 187 insulin coverage given as per sliding scale. C/o mild 7/10 pain administered scheduled OXYCONTIN. Davis catheter draining well with clear yellow colored urine. ROSCOE drain patent and intact, with thin yellow drainage. Dressing intact on the vulvar and buttock surgical incision site with no signs and symptoms of infection. Air mattress in place. Safety measures maintained. Call light and personal items within reach. Will continue to monitor.
[2020-10-19 04:40] VITALS: BP 143/59
--- NOTE | 2020-10-19 05:00 | NUR ---
Patient concern about her next dose of ATB when it is due? notified next dose on 10/19/20 at 0600 am, Patient slept sound all night no acute distress no c/o pain reported, will continue with plan of care.
[2020-10-19] MEDS: CEphaleXIN 250 MG CAPSULE PO SCH ×3 (06:37→22:08)
[2020-10-19] MEDS: OXYCODONE HCL 10 MG TAB.SR.12H PO SCH ×3 (06:38→22:04)
[2020-10-19] MEDS: BLOOD SUGAR DIAGNOSTIC 1 EACH STRIP VI SCH ×4 (06:44→21:00)
--- NOTE | 2020-10-19 07:24 | NUR ---
ROSCOE drain still intact 5cc for whole shift
[2020-10-19 07:49] VITALS: BP 118/54
[2020-10-19] MEDS: PROTEIN SUPPLEMENT (PROSTAT) 30 ML LIQUID PO SCH (09:00)
[2020-10-19] MEDS: GLUCERNA SHAKE 237 ML CAN PO SCH (09:00)
[2020-10-19] MEDS: INSULIN REGULAR, HUMAN 300 UNIT/3 ML VIAL SQ PRN ×3 (09:10→17:31)
[2020-10-19] MEDS: DOCUSATE SODIUM 100 MG CAPSULE PO SCH ×2 (09:12→22:06)
[2020-10-19] MEDS: METHOCARBAMOL 500 MG TABLET PO SCH ×3 (09:12→16:53)
[2020-10-19] MEDS: ASCORBIC ACID 500 MG TABLET PO SCH (09:12)
[2020-10-19] MEDS: AMLODIPINE 10 MG TABLET PO SCH (09:12)
[2020-10-19] MEDS: FOLIC ACID 1 MG TABLET PO SCH (09:12)
[2020-10-19] MEDS: CELECOXIB 200 MG CAPSULE PO SCH ×2 (09:12→22:06)
[2020-10-19] MEDS: ZINC SULFATE 220 MG CAPSULE PO SCH (09:12)
[2020-10-19] MEDS: CHOLECALCIFEROL 1,000 UNIT TABLET PO SCH (09:13)
[2020-10-19] MEDS: VALSARTAN 160 MG TABLET PO SCH (09:13)
[2020-10-19] MEDS: HYDROCHLOROTHIAZIDE 25 MG TABLET PO SCH (09:13)
[2020-10-19] MEDS: CYANOCOBALAMIN 100 MCG TABLET PO SCH (09:14)
[2020-10-19] MEDS: VITAMIN B COMPLEX 1 TABLET PO SCH (09:15)
[2020-10-19] MEDS: ANASTROZOLE 1 MG TABLET PO SCH (09:16)
[2020-10-19] MEDS ORDERED: LIDOCAINE 1%-EPI 1:200,000 MPF 30 ML VIAL IJ PRN (12:15)
--- NOTE | 2020-10-19 14:00 | NUR ---
Patient in bed alert and oriented x 4. No s/s of distress. VS WNL. Patient on presley catheter draining well. Elmer MASON removed ROSCOE and debridement done on the buttocks area. Dressing changed done. Ordered for mycostatin powder every 12 hours apply under the left breast. Patient is still on antibiotic cephalexin 250mg PO. All due meds given as prescribed. All needs met promptly. Call light placed within easy reach.
[2020-10-19] MEDS: NYSTATIN POWDER 15 GM BOTTLE TOP SCH ×2 (14:15→22:07)
[2020-10-19 16:01] VITALS: BP 101/47
[2020-10-19 20:30] VITALS: BP 113/44
--- NOTE | 2020-10-19 21:00 | NUR ---
Received Patient resting in bed alert and oriented x 4,at room air No s/s of distress. VS WNL. Patient on Davis catheter draining well. Continue monitoring for S/p ROSCOE removal and debridement done on the buttocks area in AM. Dressing intact clean and dry Mycostatin powder every 12 hours applied under the left breast as ordered patient tolerated well. All due Meds administered as ordered continue on antibiotic cephalexin 250mg PO for UTI no ADR noted encouraged fluid as tolerated. All needs met promptly. Call light placed within reach.
[2020-10-19] MEDS: ENOXAPARIN SODIUM 40 MG/0.4 ML DISP.SYRIN SQ SCH (22:05)
[2020-10-19] MEDS: MAGNESIUM OXIDE 250 MG TABLET PO SCH (22:06)
[2020-10-19] MEDS: INSULIN REGULAR, HUMAN 300 UNITS/3 ML VIAL SQ PRN (22:16)
[2020-10-20 04:00] VITALS: BP 127/57
[2020-10-20] MEDS: OXYCODONE HCL 10 MG TAB.SR.12H PO SCH ×3 (06:29→21:44)
[2020-10-20] MEDS: CEphaleXIN 250 MG CAPSULE PO SCH ×3 (06:29→21:52)
[2020-10-20] MEDS: BLOOD SUGAR DIAGNOSTIC 1 EACH STRIP VI SCH ×4 (06:37→21:47)
[2020-10-20 08:33] VITALS: BP 125/74
[2020-10-20] MEDS: INSULIN REGULAR, HUMAN 300 UNIT/3 ML VIAL SQ PRN ×3 (08:34→17:37)
[2020-10-20] MEDS: CYANOCOBALAMIN 100 MCG TABLET PO SCH (08:38)
[2020-10-20] MEDS: FOLIC ACID 1 MG TABLET PO SCH (08:38)
[2020-10-20] MEDS: VALSARTAN 160 MG TABLET PO SCH (08:38)
[2020-10-20] MEDS: METHOCARBAMOL 500 MG TABLET PO SCH ×3 (08:38→17:28)
[2020-10-20] MEDS: ZINC SULFATE 220 MG CAPSULE PO SCH (08:38)
[2020-10-20] MEDS: DOCUSATE SODIUM 100 MG CAPSULE PO SCH ×2 (08:38→21:44)
[2020-10-20] MEDS: CHOLECALCIFEROL 1,000 UNIT TABLET PO SCH (08:38)
[2020-10-20] MEDS: ASCORBIC ACID 500 MG TABLET PO SCH (08:39)
[2020-10-20] MEDS: AMLODIPINE 10 MG TABLET PO SCH (08:39)
[2020-10-20] MEDS: HYDROCHLOROTHIAZIDE 25 MG TABLET PO SCH (08:39)
[2020-10-20] MEDS: CELECOXIB 200 MG CAPSULE PO SCH ×2 (08:39→21:44)
[2020-10-20] MEDS: VITAMIN B COMPLEX 1 TABLET PO SCH (08:41)
[2020-10-20] MEDS: ANASTROZOLE 1 MG TABLET PO SCH (08:52)
[2020-10-20] MEDS: NYSTATIN POWDER 15 GM BOTTLE TOP SCH ×2 (08:58→22:00)
[2020-10-20 15:25] VITALS: BP 138/63
[2020-10-20] MEDS ORDERED: THERAHONEY GEL 1.5 OZ TUBE TOP PRN (17:00)
--- NOTE | 2020-10-20 18:56 | NUR ---
Received an order from Dr. Agee to start patient on metformin 1000mg PO daily which patient was taking as home medication.
[2020-10-20 20:55] VITALS: BP 117/49
[2020-10-20] MEDS: MAGNESIUM OXIDE 250 MG TABLET PO SCH (21:44)
[2020-10-20] MEDS: ENOXAPARIN SODIUM 40 MG/0.4 ML DISP.SYRIN SQ SCH (21:45)
[2020-10-20] MEDS: INSULIN REGULAR, HUMAN 300 UNITS/3 ML VIAL SQ PRN (21:46)
--- NOTE | 2020-10-21 02:25 | NUR ---
Received pt resting comfortably in bed. No s/s of distress. VS WNL. Patient on presley catheter draining well. Dressing changed done. kept clean dry and comfortable. All due meds given as prescribed. All needs met promptly. Call light placed within easy reach. will continue plan of care.
[2020-10-21] MEDS: OXYCODONE HCL 10 MG TAB.SR.12H PO SCH ×3 (06:24→22:09)
[2020-10-21] MEDS: CEphaleXIN 250 MG CAPSULE PO SCH ×3 (06:24→22:09)
[2020-10-21] MEDS: BLOOD SUGAR DIAGNOSTIC 1 EACH STRIP VI SCH ×4 (06:46→21:00)
[2020-10-21 07:05] LABS: BASOPHILS % (AUTO) 0.2 % (0.0-2.0); EOSINOPHILS # (AUTO) 0.3 K/uL (0.0-0.7); EOSINOPHILS % (AUTO) 3.6 % (0.0-7.0); HEMATOCRIT 31.8 % (31.2-41.9); HEMOGLOBIN 10.6 g/dL (10.9-14.3); LYMPHOCYTES # (AUTO) 2.8 K/uL (20.0-40.0); MEAN CORPUSCULAR HEMOGLOBIN 28.9 uug (24.7-32.8); MEAN CORPUSCULAR HGB CONC 33 g/dL (32.3-35.6); MEAN CORPUSCULAR VOLUME 86.7 fL (75.5-95.3); MONOCYTES # (AUTO) 0.9 K/uL (2.0-10.0); MONOCYTES % (AUTO) 10.6 % (0.0-11.0); NEUTROPHILS # (AUTO) 4.8 K/uL (1.8-8.9); NEUTROPHILS % (AUTO) 53.6 % (38.5-71.5); PLATELET COUNT (AUTO) 562 K/uL (179-408); RED BLOOD CELL COUNT(AUTO) 3.67 MIL/uL (3.63-4.92); WHITE BLOOD COUNT (AUTO) 8.9 K/uL (3.8-11.8)
[2020-10-21 07:24] LABS: CREATININE 1.1 mg/dL (0.6-1.3)
[2020-10-21 08:00] VITALS: BP 127/99
[2020-10-21] MEDS: INSULIN REGULAR, HUMAN 300 UNIT/3 ML VIAL SQ PRN ×3 (08:29→17:20)
[2020-10-21] MEDS: VITAMIN B COMPLEX 1 TABLET PO SCH (10:18)
[2020-10-21] MEDS: ANASTROZOLE 1 MG TABLET PO SCH (10:18)
[2020-10-21] MEDS: DOCUSATE SODIUM 100 MG CAPSULE PO SCH (10:18)
[2020-10-21] MEDS: VALSARTAN 160 MG TABLET PO SCH (10:19)
[2020-10-21] MEDS: FOLIC ACID 1 MG TABLET PO SCH (10:19)
[2020-10-21] MEDS: METFORMIN HCL 500 MG TABLET PO SCH (10:19)
[2020-10-21] MEDS: AMLODIPINE 10 MG TABLET PO SCH (10:20)
[2020-10-21] MEDS: METHOCARBAMOL 500 MG TABLET PO SCH ×3 (10:20→17:21)
[2020-10-21] MEDS: HYDROCHLOROTHIAZIDE 25 MG TABLET PO SCH (10:20)
[2020-10-21] MEDS: CHOLECALCIFEROL 1,000 UNIT TABLET PO SCH (10:21)
[2020-10-21] MEDS: ASCORBIC ACID 500 MG TABLET PO SCH (10:21)
[2020-10-21] MEDS: CYANOCOBALAMIN 100 MCG TABLET PO SCH (10:21)
[2020-10-21] MEDS: CELECOXIB 200 MG CAPSULE PO SCH ×2 (10:22→22:10)
[2020-10-21] MEDS: ZINC SULFATE 220 MG CAPSULE PO SCH (10:22)
[2020-10-21] MEDS: NYSTATIN POWDER 15 GM BOTTLE TOP SCH ×2 (10:24→22:09)
[2020-10-21] MEDS: THERAHONEY GEL 1.5 OZ TUBE TOP SCH (10:24)
[2020-10-21 16:00] VITALS: BP 129/51
[2020-10-21] MEDS: SENNOSIDES/DOCUSATE SODIUM TABLET PO SCH (17:21)
--- NOTE | 2020-10-21 19:25 | NUR ---
EOSS: Pt in bed, A&Ox4, able to verbalize needs. No acute distress noted. Pt denies pain/discomfort at this time. Due medications given per order. Wound treatment administered per order. KETURAH double lumen midline patent and intact. Davis catheter patent, draining yellow urine. Safety measures maintained. Call light and belongings within reach. Will endorse care to shift supervisor film processing nurse.
--- NOTE | 2020-10-21 19:50 | NUR ---
Received pt in bed, awake and verbally responsive, no s/s of respiratory distress, denies any discomfort or pain. IV access intact and patent. Safety measures initiated, call light within reach, will continue to monitor.
[2020-10-21 20:00] VITALS: BP 127/67
[2020-10-21] MEDS: MAGNESIUM OXIDE 250 MG TABLET PO SCH (22:07)
[2020-10-21] MEDS: ENOXAPARIN SODIUM 40 MG/0.4 ML DISP.SYRIN SQ SCH (22:08)
[2020-10-21] MEDS: INSULIN REGULAR, HUMAN 300 UNITS/3 ML VIAL SQ PRN (22:18)
[2020-10-22 04:00] VITALS: BP 137/60
[2020-10-22] MEDS: CEphaleXIN 250 MG CAPSULE PO SCH (05:22)
[2020-10-22] MEDS: OXYCODONE HCL 10 MG TAB.SR.12H PO SCH ×3 (05:22→21:12)
--- NOTE | 2020-10-22 05:48 | NUR ---
Pt in bed, slept through the night. No s/s of respiratory distress. Denies any pain. Medications tolerated well. IV access flushed, intact and patent. Davis cath draining well. Wound care done. Safety measures maintained, call light within reach, all needs attended.
[2020-10-22] MEDS: BLOOD SUGAR DIAGNOSTIC 1 EACH STRIP VI SCH ×4 (06:39→21:03)
[2020-10-22] MEDS: SULFAMETH/TRIMETH 800/160 MG TABLET PO SCH ×2 (08:43→20:59)
[2020-10-22] MEDS: CHOLECALCIFEROL 1,000 UNIT TABLET PO SCH (08:43)
[2020-10-22] MEDS: VALSARTAN 160 MG TABLET PO SCH (08:43)
[2020-10-22] MEDS: ASCORBIC ACID 500 MG TABLET PO SCH (08:44)
[2020-10-22] MEDS: HYDROCHLOROTHIAZIDE 25 MG TABLET PO SCH (08:44)
[2020-10-22] MEDS: METFORMIN HCL 500 MG TABLET PO SCH (08:44)
[2020-10-22] MEDS: METHOCARBAMOL 500 MG TABLET PO SCH ×3 (08:45→16:46)
[2020-10-22] MEDS: SENNOSIDES/DOCUSATE SODIUM TABLET PO SCH ×2 (08:45→16:46)
[2020-10-22] MEDS: CELECOXIB 200 MG CAPSULE PO SCH ×2 (08:45→20:59)
[2020-10-22] MEDS: AMLODIPINE 10 MG TABLET PO SCH (08:46)
[2020-10-22] MEDS: ANASTROZOLE 1 MG TABLET PO SCH (08:48)
[2020-10-22] MEDS: FOLIC ACID 1 MG TABLET PO SCH (08:51)
[2020-10-22] MEDS: VITAMIN B COMPLEX 1 TABLET PO SCH (08:51)
[2020-10-22] MEDS: ZINC SULFATE 220 MG CAPSULE PO SCH (08:52)
[2020-10-22] MEDS: THERAHONEY GEL 1.5 OZ TUBE TOP SCH (08:53)
[2020-10-22] MEDS: NYSTATIN POWDER 15 GM BOTTLE TOP SCH ×2 (08:54→21:00)
[2020-10-22] MEDS: CYANOCOBALAMIN 100 MCG TABLET PO SCH (08:54)
[2020-10-22] MEDS: SODIUM HYPOCHLORITE 0.25% (HALF STRENGTH) 480 ML BOTTLE TOP SCH (10:46)
[2020-10-22] MEDS: INSULIN REGULAR, HUMAN 300 UNIT/3 ML VIAL SQ PRN (11:16)
--- NOTE | 2020-10-22 15:45 | NUR ---
right buttock wound dressing changed with Dakin solution as ordered, wound bed noted with slough, however no odor noted, no purulent drainage noted, kept clean and dry, continue to monitor
[2020-10-22 16:02] VITALS: BP 127/57
[2020-10-22 20:00] VITALS: BP 118/55
[2020-10-22] MEDS: MAGNESIUM OXIDE 250 MG TABLET PO SCH (20:59)
[2020-10-22] MEDS: ENOXAPARIN SODIUM 40 MG/0.4 ML DISP.SYRIN SQ SCH (21:00)
[2020-10-22] MEDS: INSULIN REGULAR, HUMAN 300 UNITS/3 ML VIAL SQ PRN (21:04)
[2020-10-23 04:00] VITALS: BP 136/52
[2020-10-23] MEDS: OXYCODONE HCL 10 MG TAB.SR.12H PO SCH ×3 (05:24→22:00)
[2020-10-23] MEDS: BLOOD SUGAR DIAGNOSTIC 1 EACH STRIP VI SCH ×4 (06:29→20:36)
--- NOTE | 2020-10-23 06:31 | NUR ---
Shift End report: VS stable. Slept good. No PRN pain medications requested. No s/s of Hypo/Hyperglycemia. No significant event reported all night. All needs attended and met. Continue current rehab plan of care.
[2020-10-23 07:42] VITALS: BP 138/50
[2020-10-23] MEDS: INSULIN REGULAR, HUMAN 300 UNIT/3 ML VIAL SQ PRN ×2 (08:39→11:57)
[2020-10-23] MEDS: CELECOXIB 200 MG CAPSULE PO SCH ×2 (08:39→20:30)
[2020-10-23] MEDS: CHOLECALCIFEROL 1,000 UNIT TABLET PO SCH (08:40)
[2020-10-23] MEDS: ANASTROZOLE 1 MG TABLET PO SCH (08:41)
[2020-10-23] MEDS: SENNOSIDES/DOCUSATE SODIUM TABLET PO SCH ×2 (08:41→16:20)
[2020-10-23] MEDS: VALSARTAN 160 MG TABLET PO SCH ×2 (08:41→09:00)
[2020-10-23] MEDS: SULFAMETH/TRIMETH 800/160 MG TABLET PO SCH ×2 (08:42→20:30)
[2020-10-23] MEDS: METFORMIN HCL 500 MG TABLET PO SCH (08:42)
[2020-10-23] MEDS: METHOCARBAMOL 500 MG TABLET PO SCH ×4 (08:42→16:20)
[2020-10-23] MEDS: HYDROCHLOROTHIAZIDE 25 MG TABLET PO SCH (08:42)
[2020-10-23] MEDS: FOLIC ACID 1 MG TABLET PO SCH (08:43)
[2020-10-23] MEDS: AMLODIPINE 10 MG TABLET PO SCH (08:43)
[2020-10-23] MEDS: ASCORBIC ACID 500 MG TABLET PO SCH (08:43)
[2020-10-23] MEDS: VITAMIN B COMPLEX 1 TABLET PO SCH (08:44)
[2020-10-23] MEDS: CYANOCOBALAMIN 100 MCG TABLET PO SCH (08:44)
[2020-10-23] MEDS: ZINC SULFATE 220 MG CAPSULE PO SCH (08:45)
[2020-10-23] MEDS: NYSTATIN POWDER 15 GM BOTTLE TOP SCH ×2 (08:46→20:36)
[2020-10-23] MEDS: SODIUM HYPOCHLORITE 0.25% (HALF STRENGTH) 480 ML BOTTLE TOP SCH (08:46)
[2020-10-23] MEDS: THERAHONEY GEL 1.5 OZ TUBE TOP SCH (08:47)
[2020-10-23] MEDS ORDERED: LIDOCAINE 1%-EPI 1:100,000 20 ML VIAL IJ ONE (11:30)
--- NOTE | 2020-10-23 15:02 | NUR ---
patient is alert, oriented x4, verbally responsive, no sob, resp even nonlabored,skin warm and dry to touch, right buttock wound and right groin wound debrided by PA, patient tolerated well, no odor noted from the wounds, right groin wound noted with scant serous drainage, packed with iodoform as ordered, no distress noted
[2020-10-23 15:03] VITALS: BP 120/52
[2020-10-23] MEDS: ONDANSETRON 4 MG/2 ML VIAL IV PRN (17:20)
--- NOTE | 2020-10-23 17:48 | NUR ---
patient refused insulin blood sugar is 132, patient stated she might not be able to eat much
[2020-10-23 20:18] VITALS: BP 116/63
[2020-10-23] MEDS: MAGNESIUM OXIDE 250 MG TABLET PO SCH (20:30)
[2020-10-23] MEDS: ENOXAPARIN SODIUM 40 MG/0.4 ML DISP.SYRIN SQ SCH (20:31)
[2020-10-23] MEDS: INSULIN REGULAR, HUMAN 300 UNITS/3 ML VIAL SQ PRN (20:38)
[2020-10-24] MEDS: ONDANSETRON 4 MG/2 ML VIAL IV PRN ×4 (00:43→20:28)
[2020-10-24 04:00] VITALS: BP 110/53
[2020-10-24] MEDS: OXYCODONE HCL 10 MG TAB.SR.12H PO SCH ×3 (06:05→22:00)
[2020-10-24] MEDS: BLOOD SUGAR DIAGNOSTIC 1 EACH STRIP VI SCH ×4 (06:32→20:13)
[2020-10-24 06:46] LABS: BASOPHILS % (AUTO) 0.4 % (0.0-2.0); EOSINOPHILS # (AUTO) 0.1 K/uL (0.0-0.7); EOSINOPHILS % (AUTO) 1.3 % (0.0-7.0); HEMOGLOBIN 10.8 g/dL (10.9-14.3); LYMPHOCYTES # (AUTO) 1.6 K/uL (20.0-40.0); LYMPHOCYTES % (AUTO) 17.5 % (20.5-51.5); MEAN CORPUSCULAR HEMOGLOBIN 28.6 uug (24.7-32.8); MEAN CORPUSCULAR HGB CONC 33 g/dL (32.3-35.6); MEAN CORPUSCULAR VOLUME 87.2 fL (75.5-95.3); MONOCYTES # (AUTO) 0.9 K/uL (2.0-10.0); MONOCYTES % (AUTO) 10.1 % (0.0-11.0); NEUTROPHILS # (AUTO) 6.3 K/uL (1.8-8.9); NEUTROPHILS % (AUTO) 70.7 % (38.5-71.5); PLATELET COUNT (AUTO) 525 K/uL (179-408); RED BLOOD CELL COUNT(AUTO) 3.78 MIL/uL (3.63-4.92)
--- NOTE | 2020-10-24 06:56 | NUR ---
Shift End Report: Vs stable. Medicated twice for nausea, no emesis, effective. No extra pain medication given. All needs attended and met. Wound dressing on thigh and buttock dry and intact. No significant event reported all night. Continue current rehab plan of care.
[2020-10-24 07:12] LABS: CARBON DIOXIDE 30 mmol/L (21-32); CHLORIDE 102 mmol/L (98-107); CREATININE 1.4 mg/dL (0.6-1.3); GLUCOSE 97 mg/dL (74-106); POTASSIUM 5.1 mmol/L (3.5-5.1); UREA NITROGEN, BLOOD 32 mg/dL (7-18)
[2020-10-24 08:00] VITALS: BP 117/49
[2020-10-24] MEDS: CHOLECALCIFEROL 1,000 UNIT TABLET PO SCH (08:59)
[2020-10-24] MEDS: ASCORBIC ACID 500 MG TABLET PO SCH (08:59)
[2020-10-24] MEDS: METHOCARBAMOL 500 MG TABLET PO SCH ×3 (09:00→16:50)
[2020-10-24] MEDS: VALSARTAN 160 MG TABLET PO SCH (09:00)
[2020-10-24] MEDS: THERAHONEY GEL 1.5 OZ TUBE TOP SCH (09:00)
[2020-10-24] MEDS: SODIUM HYPOCHLORITE 0.25% (HALF STRENGTH) 480 ML BOTTLE TOP SCH (09:00)
[2020-10-24] MEDS: SULFAMETH/TRIMETH 800/160 MG TABLET PO SCH ×2 (09:01→20:12)
[2020-10-24] MEDS: CYANOCOBALAMIN 100 MCG TABLET PO SCH (09:01)
[2020-10-24] MEDS: ZINC SULFATE 220 MG CAPSULE PO SCH (09:02)
[2020-10-24] MEDS: AMLODIPINE 10 MG TABLET PO SCH (09:02)
[2020-10-24] MEDS: HYDROCHLOROTHIAZIDE 25 MG TABLET PO SCH (09:02)
[2020-10-24] MEDS: METFORMIN HCL 500 MG TABLET PO SCH (09:02)
[2020-10-24] MEDS: SENNOSIDES/DOCUSATE SODIUM TABLET PO SCH ×2 (09:02→16:43)
[2020-10-24] MEDS: CELECOXIB 200 MG CAPSULE PO SCH ×2 (09:03→20:12)
[2020-10-24] MEDS: VITAMIN B COMPLEX 1 TABLET PO SCH (09:03)
[2020-10-24] MEDS: FOLIC ACID 1 MG TABLET PO SCH (09:03)
[2020-10-24] MEDS: ANASTROZOLE 1 MG TABLET PO SCH (09:05)
--- NOTE | 2020-10-24 09:34 | NUR ---
Patient in bed, alert and oriented x 4 , call light within reach, kept skin clean and dry. wound dressing in the buttocks and vaginal area intact. On presley catheter draining well. Cooperative upon assessment. VS WNL. All due meds given per MD order. All needs attended promptly. Will continue to monitor.
[2020-10-24] MEDS: NYSTATIN POWDER 15 GM BOTTLE TOP SCH ×2 (10:14→20:13)
[2020-10-24] MEDS: INSULIN REGULAR, HUMAN 300 UNIT/3 ML VIAL SQ PRN (13:37)
--- NOTE | 2020-10-24 13:59 | NUR ---
Per patient , she wants to have her Zofran first @ 1330 before eating lunch. 3units of insulin given food tray is served.
[2020-10-24] MEDS: IV D5/ 0.9% NACL 1,000 ML IV PRN (14:59)
[2020-10-24 15:55] VITALS: BP 118/49
[2020-10-24] MEDS: ACETAMINOPHEN 325 MG TABLET PO PRN (18:53)
[2020-10-24 20:00] VITALS: BP 114/48
[2020-10-24] MEDS: MAGNESIUM OXIDE 250 MG TABLET PO SCH (20:12)
[2020-10-24] MEDS: INSULIN REGULAR, HUMAN 300 UNITS/3 ML VIAL SQ PRN (20:14)
[2020-10-24] MEDS: ENOXAPARIN SODIUM 40 MG/0.4 ML DISP.SYRIN SQ SCH (20:14)
--- NOTE | 2020-10-24 21:07 | NUR ---
Received pt resting in bed. AAO x4. No acute distress noted. Denies pain/ discomfort at this time. Meds given as ordered. Blood sugar 164, insulin coverage given as per sliding scale. Pt had snack. Davis catheter draining well with yellow colored urine. No drainage noted on the incision site. Air mattress in place. Right upper arm midline, patent and intact, running D5 NS 50 cc/hr. Safety measures maintained. Call light and personal items within reach. Will continue to monitor.
[2020-10-25 04:03] VITALS: BP 144/45
[2020-10-25] MEDS: OXYCODONE HCL 10 MG TAB.SR.12H PO SCH ×3 (06:00→22:00)
[2020-10-25] MEDS: ONDANSETRON 4 MG/2 ML VIAL IV PRN (06:22)
[2020-10-25] MEDS: BLOOD SUGAR DIAGNOSTIC 1 EACH STRIP VI SCH ×4 (06:38→20:03)
[2020-10-25] MEDS ORDERED: SIMETHICONE 80 MG TAB.CHEW PO ONE (07:15)
[2020-10-25 08:00] VITALS: BP 147/46
[2020-10-25] MEDS: CELECOXIB 200 MG CAPSULE PO SCH ×2 (08:58→20:03)
[2020-10-25] MEDS: ZINC SULFATE 220 MG CAPSULE PO SCH (08:59)
[2020-10-25] MEDS: HYDROCHLOROTHIAZIDE 25 MG TABLET PO SCH (08:59)
[2020-10-25] MEDS: METHOCARBAMOL 500 MG TABLET PO SCH ×3 (09:00→16:12)
[2020-10-25] MEDS: AMLODIPINE 10 MG TABLET PO SCH (09:00)
[2020-10-25] MEDS: VALSARTAN 160 MG TABLET PO SCH (09:00)
[2020-10-25] MEDS: THERAHONEY GEL 1.5 OZ TUBE TOP SCH (09:00)
[2020-10-25] MEDS: SENNOSIDES/DOCUSATE SODIUM TABLET PO SCH ×2 (09:01→16:11)
[2020-10-25] MEDS: CHOLECALCIFEROL 1,000 UNIT TABLET PO SCH (09:01)
[2020-10-25] MEDS: SULFAMETH/TRIMETH 800/160 MG TABLET PO SCH ×2 (09:01→20:03)
[2020-10-25] MEDS: FOLIC ACID 1 MG TABLET PO SCH (09:01)
[2020-10-25] MEDS: ASCORBIC ACID 500 MG TABLET PO SCH (09:01)
[2020-10-25] MEDS: VITAMIN B COMPLEX 1 TABLET PO SCH (09:02)
[2020-10-25] MEDS: METFORMIN HCL 500 MG TABLET PO SCH (09:07)
[2020-10-25] MEDS: CYANOCOBALAMIN 100 MCG TABLET PO SCH (09:07)
[2020-10-25] MEDS: ANASTROZOLE 1 MG TABLET PO SCH (09:08)
[2020-10-25] MEDS: NYSTATIN POWDER 15 GM BOTTLE TOP SCH ×2 (09:09→20:03)
[2020-10-25] MEDS: SODIUM HYPOCHLORITE 0.25% (HALF STRENGTH) 480 ML BOTTLE TOP SCH (09:17)
[2020-10-25] MEDS: IV D5/ 0.9% NACL 1,000 ML IV PRN (09:52)
--- NOTE | 2020-10-25 10:02 | NUR ---
Patient in bed, alert and oriented x 4. Denies of any pain at this time. D5NS running at 50ml/hr . KETURAH midline patent. On presley catheter with urine yellow in color. Patient is cooperative upon assessment. All due meds given as ordered. All needs met . Call light within easy reach.
[2020-10-25] MEDS: INSULIN REGULAR, HUMAN 300 UNIT/3 ML VIAL SQ PRN ×2 (12:24→17:27)
[2020-10-25 16:16] VITALS: BP 114/50
--- NOTE | 2020-10-25 18:30 | NUR ---
Wound dressing changed. Empty Davis catheter with 800cc output. Endorsed to the next shift accordingly.
[2020-10-25 20:00] VITALS: BP 121/48
[2020-10-25] MEDS: MAGNESIUM OXIDE 250 MG TABLET PO SCH (20:03)
[2020-10-25] MEDS: ENOXAPARIN SODIUM 40 MG/0.4 ML DISP.SYRIN SQ SCH (20:20)
[2020-10-25] MEDS: INSULIN REGULAR, HUMAN 300 UNITS/3 ML VIAL SQ PRN (20:20)
--- NOTE | 2020-10-25 20:52 | NUR ---
Received pt resting in bed and watching tv. AAO x4. No acute distress noted. Denies pain/ discomfort at this time. Meds given as ordered. Blood sugar 163, insulin coverage given as per sliding scale. Pt had snack. Davis catheter draining well with yellow colored urine. No drainage noted on the incision site. Air mattress in place. Right upper arm midline, patent and intact, running D5 NS 50 cc/hr. Safety measures maintained. Call light and personal items within reach. Will continue to monitor.
--- NOTE | 2020-10-26 00:46 | NUR ---
Pt c/o abdominal bloating and fullness. No BM for 2 days. Pt received one time dose of simethicone yesterday morning, which helped relieved the bloating. Notified Dr. Vogel with order to give another dose and KUB in the morning. Will carry out order.
[2020-10-26] MEDS ORDERED: SIMETHICONE 80 MG TAB.CHEW PO ONE (01:00)
--- NOTE | 2020-10-26 03:45 | NUR ---
Pt had x1 BM. Wound care and dressing change rendered. Right upper arm midline dressing also changed.
[2020-10-26 05:27] VITALS: BP 137/52
[2020-10-26] MEDS: OXYCODONE HCL 10 MG TAB.SR.12H PO SCH ×3 (06:00→22:00)
[2020-10-26] MEDS: BLOOD SUGAR DIAGNOSTIC 1 EACH STRIP VI SCH ×4 (06:43→20:56)
[2020-10-26 07:00] LABS: CREATININE 1.3 mg/dL (0.6-1.3); POTASSIUM 4.9 mmol/L (3.5-5.1)
[2020-10-26] MEDS: IV D5/ 0.9% NACL 1,000 ML IV PRN (07:52)
[2020-10-26 07:54] VITALS: BP 119/40
[2020-10-26] MEDS ORDERED: LACTULOSE 20 G/30 ML LIQUID UDC PO ONE (08:30)
[2020-10-26] MEDS: METHOCARBAMOL 500 MG TABLET PO SCH ×3 (09:00→16:49)
[2020-10-26] MEDS: THERAHONEY GEL 1.5 OZ TUBE TOP SCH (09:00)
[2020-10-26] MEDS: INSULIN REGULAR, HUMAN 300 UNIT/3 ML VIAL SQ PRN ×3 (09:36→18:24)
[2020-10-26] MEDS: VITAMIN B COMPLEX 1 TABLET PO SCH (09:38)
[2020-10-26] MEDS: CELECOXIB 200 MG CAPSULE PO SCH ×2 (09:39→20:51)
[2020-10-26] MEDS: METFORMIN HCL 500 MG TABLET PO SCH (09:39)
[2020-10-26] MEDS: ANASTROZOLE 1 MG TABLET PO SCH (09:39)
[2020-10-26] MEDS: HYDROCHLOROTHIAZIDE 25 MG TABLET PO SCH (09:40)
[2020-10-26] MEDS: CHOLECALCIFEROL 1,000 UNIT TABLET PO SCH (09:40)
[2020-10-26] MEDS: SULFAMETH/TRIMETH 800/160 MG TABLET PO SCH (09:40)
[2020-10-26] MEDS: VALSARTAN 160 MG TABLET PO SCH (09:40)
[2020-10-26] MEDS: ASCORBIC ACID 500 MG TABLET PO SCH (09:40)
[2020-10-26] MEDS: AMLODIPINE 10 MG TABLET PO SCH (09:41)
[2020-10-26] MEDS: FOLIC ACID 1 MG TABLET PO SCH (09:41)
[2020-10-26] MEDS: CYANOCOBALAMIN 100 MCG TABLET PO SCH (09:41)
[2020-10-26] MEDS: SENNOSIDES/DOCUSATE SODIUM TABLET PO SCH ×2 (09:41→16:10)
[2020-10-26] MEDS: ZINC SULFATE 220 MG CAPSULE PO SCH (09:41)
[2020-10-26] MEDS: SODIUM HYPOCHLORITE 0.25% (HALF STRENGTH) 480 ML BOTTLE TOP SCH (09:48)
[2020-10-26] MEDS: NYSTATIN POWDER 15 GM BOTTLE TOP SCH ×2 (09:48→20:52)
--- NOTE | 2020-10-26 10:11 | NUR ---
Received patient in bed alert and oreinted x 4. Pleasant and cooeprative upon assessment. Patient has D5NS running at 50ml/hr right upper arm midline patent. Dressing intact. On presley catheter draining well urine yellow in color. Patient stated she had BM 3X last night. Recieved an order from Dr. Ludwig to continue D5NS at 50ml/hr and order for lactulose 30ml one time dose for constipation . patient refused lactulose and stated that she wants to have it for danielle. morning. Dr. Ludwig made aware and order for lactulose 30ml PRN. All needs met promptly call light within reach.
--- NOTE | 2020-10-26 13:17 | NUR ---
Dr. Ludwig order to discontinue D5NS and replaced with IV sodium chloride 0.9% at 50ml/hr
[2020-10-26] MEDS: IV NS 1000 ML 1,000 ML IV PRN (13:29)
[2020-10-26 16:00] VITALS: BP 140/51
--- NOTE | 2020-10-26 18:19 | NUR ---
Notify Dr. Johnson for KUB result
[2020-10-26] MEDS ORDERED: Z GUARD REMEDY PASTE 57 GM TUBE TOP PRN (19:30)
--- NOTE | 2020-10-26 19:30 | NUR ---
Sleeping soundly during initial rounds. No s/s of respiratory distress noted. IVF infusing continuously via IV pump as ordered. No s/s of infiltration on IV site., patent, and intact. F/C intact and patent, draining clear yellow urine output. Safety measures and fall prevention maintained. Continue care as planned.
[2020-10-26 20:15] VITALS: BP 111/51
[2020-10-26] MEDS: MAGNESIUM OXIDE 250 MG TABLET PO SCH (20:51)
[2020-10-26] MEDS: ENOXAPARIN SODIUM 40 MG/0.4 ML DISP.SYRIN SQ SCH (20:52)
[2020-10-26] MEDS: INSULIN REGULAR, HUMAN 300 UNITS/3 ML VIAL SQ PRN (21:02)
[2020-10-27 04:15] VITALS: BP 126/47
--- NOTE | 2020-10-27 05:42 | NUR ---
Shift End Report: Slept well. Refused routine pain medication ordered. Tolerated IVF ordered. No s/s of infiltration noted on IV site. All needs attended and met. No significant event reported all night.
[2020-10-27] MEDS: OXYCODONE HCL 10 MG TAB.SR.12H PO SCH ×3 (06:00→22:00)
[2020-10-27] MEDS: BLOOD SUGAR DIAGNOSTIC 1 EACH STRIP VI SCH ×4 (06:19→20:40)
[2020-10-27 08:00] VITALS: BP 145/64
[2020-10-27] MEDS: SENNOSIDES/DOCUSATE SODIUM TABLET PO SCH ×2 (09:23→17:32)
[2020-10-27] MEDS: CHOLECALCIFEROL 1,000 UNIT TABLET PO SCH (09:24)
[2020-10-27] MEDS: CYANOCOBALAMIN 100 MCG TABLET PO SCH (09:24)
[2020-10-27] MEDS: ASCORBIC ACID 500 MG TABLET PO SCH (09:24)
[2020-10-27] MEDS: METFORMIN HCL 500 MG TABLET PO SCH (09:24)
[2020-10-27] MEDS: VALSARTAN 160 MG TABLET PO SCH (09:25)
[2020-10-27] MEDS: AMLODIPINE 10 MG TABLET PO SCH (09:25)
[2020-10-27] MEDS: ZINC SULFATE 220 MG CAPSULE PO SCH (09:25)
[2020-10-27] MEDS: FOLIC ACID 1 MG TABLET PO SCH (09:25)
[2020-10-27] MEDS: HYDROCHLOROTHIAZIDE 25 MG TABLET PO SCH (09:25)
[2020-10-27] MEDS: CELECOXIB 200 MG CAPSULE PO SCH ×2 (09:25→20:42)
[2020-10-27] MEDS: VITAMIN B COMPLEX 1 TABLET PO SCH (09:29)
[2020-10-27] MEDS: METHOCARBAMOL 500 MG TABLET PO SCH ×3 (09:29→17:00)
[2020-10-27] MEDS: ANASTROZOLE 1 MG TABLET PO SCH (09:31)
[2020-10-27] MEDS: NYSTATIN POWDER 15 GM BOTTLE TOP SCH ×2 (09:41→20:57)
[2020-10-27] MEDS: SODIUM HYPOCHLORITE 0.25% (HALF STRENGTH) 480 ML BOTTLE TOP SCH (09:41)
[2020-10-27] MEDS: THERAHONEY GEL 1.5 OZ TUBE TOP SCH (10:20)
[2020-10-27] MEDS ORDERED: LACTULOSE 20 G/30 ML LIQUID UDC PO ONE (11:00)
[2020-10-27] MEDS: INSULIN REGULAR, HUMAN 300 UNIT/3 ML VIAL SQ PRN (12:19)
[2020-10-27] MEDS: IV NS 1000 ML 1,000 ML IV PRN (12:24)
[2020-10-27] MEDS ORDERED: SILVER NITRATE APPLICATOR STICK EACH TP ONE (13:45)
[2020-10-27] MEDS ORDERED: LIDOCAINE 1.5%-EPI 1:200,000 30 ML VIAL INJ ONE (13:45)
[2020-10-27 15:43] VITALS: BP 131/51
[2020-10-27 19:45] VITALS: BP 120/48
--- NOTE | 2020-10-27 19:45 | NUR ---
RECEIVED IN BED ALERT ORIENTED, NO SOB NO CHEST PAIN. PATIENT HAS NO COMPLAIN OF PAIN AT THIS TIME. PATIENT WAS INFORM THAT WERE GOING TO TAKE PICTURES OF THE WOUND, PATIENT STATE THAT PICTURE WAS TAKEN YESTERDAY AND WILL HAVE ANOTHER PICTURE TAKEN TOMORROW, WILL CONTINUE TO OFFER. PATIENT CHOWDHURY CATH PATENT DRAINING WITH CLEAR COLOR URINE IN MODERATE AMOUNT. CONT TO MONITOR.
[2020-10-27] MEDS: MAGNESIUM OXIDE 250 MG TABLET PO SCH (20:43)
[2020-10-27] MEDS: ENOXAPARIN SODIUM 40 MG/0.4 ML DISP.SYRIN SQ SCH (20:55)
--- NOTE | 2020-10-27 22:00 | NUR ---
PATIENT REFUSED ROUTINE PAIN MEDICATIONS, REFUSED TREATMENT OF THE R BUTTOCK WOUND, REFUSED PHOTO TAKEN, WILL CONT TO OFFER. KEPT COMFORTABLE.
--- NOTE | 2020-10-28 04:07 | NUR ---
PATIENT R BUTTOCK TOP DRESSING WAS CHANGED DUE TO SOILAGE. PATIENT CONTINUE TO REFUSED PICTURE TAKEN, CONT TO OFFER.
[2020-10-28 04:22] VITALS: BP 137/57
[2020-10-28] MEDS: OXYCODONE HCL 10 MG TAB.SR.12H PO SCH ×2 (06:00→14:00)
[2020-10-28] MEDS: BLOOD SUGAR DIAGNOSTIC 1 EACH STRIP VI SCH ×4 (06:26→20:37)
--- NOTE | 2020-10-28 06:31 | NUR ---
PATIENT ASLEEP BUT AROUSABLE, NO COMPLAIN OF PAIN, DRESSING INTACT, CONT TO MONITOR.
[2020-10-28 08:00] VITALS: BP 158/77
[2020-10-28] MEDS: ANASTROZOLE 1 MG TABLET PO SCH (08:10)
[2020-10-28] MEDS: VITAMIN B COMPLEX 1 TABLET PO SCH (08:10)
[2020-10-28] MEDS: SENNOSIDES/DOCUSATE SODIUM TABLET PO SCH ×2 (08:11→17:48)
[2020-10-28] MEDS: VALSARTAN 160 MG TABLET PO SCH (08:11)
[2020-10-28] MEDS: AMLODIPINE 10 MG TABLET PO SCH (08:11)
[2020-10-28] MEDS: HYDROCHLOROTHIAZIDE 25 MG TABLET PO SCH (08:12)
[2020-10-28] MEDS: FOLIC ACID 1 MG TABLET PO SCH (08:12)
[2020-10-28] MEDS: CELECOXIB 200 MG CAPSULE PO SCH ×2 (08:12→20:35)
[2020-10-28] MEDS: CHOLECALCIFEROL 1,000 UNIT TABLET PO SCH (08:13)
[2020-10-28] MEDS: CYANOCOBALAMIN 100 MCG TABLET PO SCH (08:13)
[2020-10-28] MEDS: ZINC SULFATE 220 MG CAPSULE PO SCH (08:13)
[2020-10-28] MEDS: ASCORBIC ACID 500 MG TABLET PO SCH (08:14)
[2020-10-28] MEDS: METHOCARBAMOL 500 MG TABLET PO SCH ×2 (08:14→12:09)
[2020-10-28] MEDS: NYSTATIN POWDER 15 GM BOTTLE TOP SCH ×2 (08:15→20:35)
[2020-10-28] MEDS: SODIUM HYPOCHLORITE 0.25% (HALF STRENGTH) 480 ML BOTTLE TOP SCH (08:15)
[2020-10-28] MEDS: THERAHONEY GEL 1.5 OZ TUBE TOP SCH ×2 (08:20→09:00)
[2020-10-28] MEDS: METFORMIN HCL 500 MG TABLET PO SCH (08:21)
[2020-10-28 12:08] LABS: CREATININE 1.1 mg/dL (0.6-1.3); POTASSIUM 4.5 mmol/L (3.5-5.1)
[2020-10-28] MEDS: INSULIN REGULAR, HUMAN 300 UNIT/3 ML VIAL SQ PRN ×2 (12:08→17:43)
--- NOTE | 2020-10-28 15:15 | NUR ---
Patient is alert, oriented x4, verbally responsive, no sob, resp even nonlabored, skin warm and dry to touch, wound care done, no drainage noted, no odor noted, patient seems anxious at times, encouraged to express feelings, continue with care, no acute distress noted, encouraged patient to get up to bedside commode, patient participated with PT, OT services, tolerated fairly, patient does not seem to be very motivated to participate in self care, seems to be getting more dependent on nursing care for adls, encouraged patient to participate in adls as much as she can tolerate to enhance the independence. communicated with patient in length about getting back to her baseline per MD and wound farm consultant recommendations. continue to encourage patient the importance of getting back to baseline and actively participate in adls as tolerated and as instructions given by wound farm consultant.
[2020-10-28 16:00] VITALS: BP 145/59
--- NOTE | 2020-10-28 17:22 | NUR ---
patient stated she feels like having another BM, encouraged patient and convinced to sit on bedside commode, patient stated per Elmer MASON she can not sit on commode, however Elmer MASON stated last time that patient can sit on bedside commode for 20 minutes, patient got very upset and started raising her voice said that you (nurse) only one is saying that she can sit on commode, no other nurse said that, explained to patient that this is to enhance your independence, and this is our goal to bring you to your baseline as much as possible as tolerated and per MD instructions, however explained to patient that your have a right to refuse as well, Nurses respect your right to refuse. tried calling Elmer MASON to clarify the order about patient's ability to participate in adls because of wound, could not reach at this time, will clarify tomorrow, patient also noted getting very anxious about wound care, asking nurses if the nurse cleaned her well,if the nurse packed her wound, if you packed it with tiny idoform, or with large idoform, if nurse cleaned with dakins or not, even upon explaining to patient about wound care and even after explaining the steps. patient started accusing the nurse that you did not do right wound care, you did not clean it with dakins, you did not pack it right, reassured patient that wound care is done as ordered, and explained while it was done.
[2020-10-28 20:18] VITALS: BP 134/54
[2020-10-28] MEDS: ENOXAPARIN SODIUM 40 MG/0.4 ML DISP.SYRIN SQ SCH (20:34)
[2020-10-28] MEDS: MAGNESIUM OXIDE 250 MG TABLET PO SCH (20:35)
[2020-10-28] MEDS: INSULIN REGULAR, HUMAN 300 UNITS/3 ML VIAL SQ PRN (20:39)
[2020-10-29 04:00] VITALS: BP 158/62
--- NOTE | 2020-10-29 05:26 | NUR ---
Shift End Report: VS stable. No significant event reported all night. All needs attended and met. Slept good. Continue current rehab plan of care.
[2020-10-29 05:33] LABS: BASOPHILS % (AUTO) 0.3 % (0.0-2.0); EOSINOPHILS # (AUTO) 0.3 K/uL (0.0-0.7); EOSINOPHILS % (AUTO) 3.5 % (0.0-7.0); HEMATOCRIT 34.8 % (31.2-41.9); HEMOGLOBIN 11.2 g/dL (10.9-14.3); LYMPHOCYTES # (AUTO) 2.9 K/uL (20.0-40.0); LYMPHOCYTES % (AUTO) 35.2 % (20.5-51.5); MEAN CORPUSCULAR HEMOGLOBIN 27.6 uug (24.7-32.8); MEAN CORPUSCULAR HGB CONC 32 g/dL (32.3-35.6); MONOCYTES # (AUTO) 0.7 K/uL (2.0-10.0); MONOCYTES % (AUTO) 8.9 % (0.0-11.0); NEUTROPHILS # (AUTO) 4.3 K/uL (1.8-8.9); NEUTROPHILS % (AUTO) 52.1 % (38.5-71.5); PLATELET COUNT (AUTO) 487 K/uL (179-408); RED BLOOD CELL COUNT(AUTO) 4.05 MIL/uL (3.63-4.92); WHITE BLOOD COUNT (AUTO) 8.3 K/uL (3.8-11.8)
[2020-10-29 05:44] LABS: MAGNESIUM 2.3 mg/dL (1.8-2.4); PHOSPHOROUS 3.8 mg/dL (2.5-4.9); POTASSIUM 4.3 mmol/L (3.5-5.1)
[2020-10-29] MEDS: BLOOD SUGAR DIAGNOSTIC 1 EACH STRIP VI SCH ×4 (06:07→20:16)
[2020-10-29 08:00] VITALS: BP 151/72
[2020-10-29] MEDS ORDERED: LIDOCAINE 1%-EPI 1:100,000 20 ML VIAL IJ ONE (08:00)
[2020-10-29] MEDS: SENNOSIDES/DOCUSATE SODIUM TABLET PO SCH ×2 (09:00→16:36)
[2020-10-29] MEDS: ANASTROZOLE 1 MG TABLET PO SCH (09:30)
[2020-10-29] MEDS: VITAMIN B COMPLEX 1 TABLET PO SCH (09:31)
[2020-10-29] MEDS: CELECOXIB 200 MG CAPSULE PO SCH ×2 (09:31→20:15)
[2020-10-29] MEDS: VALSARTAN 160 MG TABLET PO SCH (09:31)
[2020-10-29] MEDS: FOLIC ACID 1 MG TABLET PO SCH (09:32)
[2020-10-29] MEDS: METFORMIN HCL 500 MG TABLET PO SCH (09:33)
[2020-10-29] MEDS: AMLODIPINE 10 MG TABLET PO SCH (09:34)
[2020-10-29] MEDS: HYDROCHLOROTHIAZIDE 25 MG TABLET PO SCH (09:34)
[2020-10-29] MEDS: CYANOCOBALAMIN 100 MCG TABLET PO SCH (09:35)
[2020-10-29] MEDS: ASCORBIC ACID 500 MG TABLET PO SCH (09:35)
[2020-10-29] MEDS: SODIUM HYPOCHLORITE 0.25% (HALF STRENGTH) 480 ML BOTTLE TOP SCH (09:37)
[2020-10-29] MEDS: NYSTATIN POWDER 15 GM BOTTLE TOP SCH ×2 (09:37→20:16)
[2020-10-29] MEDS: ZINC SULFATE 220 MG CAPSULE PO SCH (09:37)
[2020-10-29] MEDS: THERAHONEY GEL 1.5 OZ TUBE TOP SCH (09:38)
[2020-10-29] MEDS: INSULIN REGULAR, HUMAN 300 UNIT/3 ML VIAL SQ PRN (12:14)
--- NOTE | 2020-10-29 14:20 | NUR ---
Pt resting in bed at this time, tolerated both breakfast and lunch. Noted with hyperglycemia of 322 prior lunch, covered with Humulin R 12 units, as ordered. No signs of acute distress. Pt also had rehab today and was able to tolerate. She was also able to transfer from bed to commode with walker at bedside. BM x 1, even after holding stool softener in the AM. Pt verbalizes that she feels stronger today. Pain is minimal and managed by routine pain medications ordered. No breakthrough medications administered so far.
[2020-10-29 14:56] VITALS: BP 152/62
--- NOTE | 2020-10-29 16:48 | NUR ---
Blood sugar before dinner: 68. Pt not in acute distress, AO x 4. No changes in baseline and just resting in bed. Offered orange juice. Pt agreed to check blood sugar again after orange juice.
--- NOTE | 2020-10-29 18:19 | NUR ---
Blood sugar after orange juice and small bites of dinner: 113. Addendum: 10/30/20 at 1250 by REYNA CALDERON RN [id number]
[2020-10-29] MEDS: MAGNESIUM OXIDE 250 MG TABLET PO SCH (20:15)
[2020-10-29 20:17] VITALS: BP 125/54
[2020-10-29] MEDS: INSULIN REGULAR, HUMAN 300 UNITS/3 ML VIAL SQ PRN (20:29)
[2020-10-29] MEDS: ENOXAPARIN SODIUM 40 MG/0.4 ML DISP.SYRIN SQ SCH (20:30)
--- NOTE | 2020-10-29 21:56 | NUR ---
Received pt resting in bed. AAO x4. No acute distress noted. Denies pain/ discomfort. Due meds given as ordered. Accucheck 175, insulin coverage given per sliding scale. Davis catheter draining well with clear yellow colored urine. Right upper arm midline, patent and intact. Air mattress in place. Turned and repositioned. Kept skin clean and dry. Safety measures maintained. Call light and personal items within reach. Will continue to monitor.
[2020-10-30 04:00] VITALS: BP 146/64
[2020-10-30] MEDS: BLOOD SUGAR DIAGNOSTIC 1 EACH STRIP VI SCH ×4 (06:41→21:18)
[2020-10-30 08:00] VITALS: BP 152/64
[2020-10-30] MEDS: SENNOSIDES/DOCUSATE SODIUM TABLET PO SCH ×2 (09:00→17:00)
[2020-10-30] MEDS: CYANOCOBALAMIN 100 MCG TABLET PO SCH (09:27)
[2020-10-30] MEDS: METFORMIN HCL 500 MG TABLET PO SCH (09:28)
[2020-10-30] MEDS: HYDROCHLOROTHIAZIDE 25 MG TABLET PO SCH (09:28)
[2020-10-30] MEDS: VALSARTAN 160 MG TABLET PO SCH (09:29)
[2020-10-30] MEDS: ASCORBIC ACID 500 MG TABLET PO SCH (09:29)
[2020-10-30] MEDS: FOLIC ACID 1 MG TABLET PO SCH (09:29)
[2020-10-30] MEDS: VITAMIN B COMPLEX 1 TABLET PO SCH (09:29)
[2020-10-30] MEDS: CELECOXIB 200 MG CAPSULE PO SCH ×2 (09:30→21:16)
[2020-10-30] MEDS: ZINC SULFATE 220 MG CAPSULE PO SCH (09:30)
[2020-10-30] MEDS: LIDOCAINE 5% PATCH TD SCH (09:31)
[2020-10-30] MEDS: AMLODIPINE 10 MG TABLET PO SCH (09:31)
[2020-10-30] MEDS: NYSTATIN POWDER 15 GM BOTTLE TOP SCH ×2 (09:32→21:20)
[2020-10-30] MEDS: ANASTROZOLE 1 MG TABLET PO SCH (09:33)
--- NOTE | 2020-10-30 13:30 | NUR ---
d/c back to [facility]. vss d/c instructions given to dillan at the facility
[2020-10-30] MEDS: THERAHONEY GEL 1.5 OZ TUBE TOP SCH (15:30)
[2020-10-30] MEDS: SODIUM HYPOCHLORITE 0.25% (HALF STRENGTH) 480 ML BOTTLE TOP SCH (15:30)
[2020-10-30 16:00] VITALS: BP 136/51
[2020-10-30] MEDS: INSULIN REGULAR, HUMAN 300 UNIT/3 ML VIAL SQ PRN (16:36)
[2020-10-30 20:19] VITALS: BP 131/53
[2020-10-30] MEDS: MAGNESIUM OXIDE 250 MG TABLET PO SCH (21:16)
[2020-10-30] MEDS: ENOXAPARIN SODIUM 40 MG/0.4 ML DISP.SYRIN SQ SCH (21:18)
[2020-10-30] MEDS: INSULIN REGULAR, HUMAN 300 UNITS/3 ML VIAL SQ PRN (21:19)
--- NOTE | 2020-10-30 21:58 | NUR ---
No acute distress noted. Denies pain/ discomfort. Due meds administered. Accucheck 174, insulin coverage given per sliding scale. Davis catheter intact, draining well with clear yellow colored urine. Right upper arm midline flushed, patent and intact. Safety measures maintained. Kept clean, dry and comfortable. Call light within reach. Safety measures maintained. Will continue plan of care.
[2020-10-31 04:00] VITALS: BP 144/59
[2020-10-31] MEDS: BLOOD SUGAR DIAGNOSTIC 1 EACH STRIP VI SCH ×4 (06:41→20:23)
[2020-10-31 08:13] VITALS: BP 143/61
[2020-10-31] MEDS: HYDROCHLOROTHIAZIDE 25 MG TABLET PO SCH (09:36)
[2020-10-31] MEDS: AMLODIPINE 10 MG TABLET PO SCH (09:36)
[2020-10-31] MEDS: FOLIC ACID 1 MG TABLET PO SCH (09:36)
[2020-10-31] MEDS: CELECOXIB 200 MG CAPSULE PO SCH ×2 (09:36→20:20)
[2020-10-31] MEDS: SENNOSIDES/DOCUSATE SODIUM TABLET PO SCH ×2 (09:36→16:47)
[2020-10-31] MEDS: CYANOCOBALAMIN 100 MCG TABLET PO SCH (09:37)
[2020-10-31] MEDS: ZINC SULFATE 220 MG CAPSULE PO SCH (09:37)
[2020-10-31] MEDS: METFORMIN HCL 500 MG TABLET PO SCH (09:37)
[2020-10-31] MEDS: ASCORBIC ACID 500 MG TABLET PO SCH (09:37)
[2020-10-31] MEDS: VALSARTAN 160 MG TABLET PO SCH (09:37)
[2020-10-31] MEDS: LIDOCAINE 5% PATCH TD SCH (09:37)
[2020-10-31] MEDS: ANASTROZOLE 1 MG TABLET PO SCH (09:40)
[2020-10-31] MEDS: VITAMIN B COMPLEX 1 TABLET PO SCH (09:41)
[2020-10-31] MEDS: NYSTATIN POWDER 15 GM BOTTLE TOP SCH ×2 (09:51→20:23)
[2020-10-31] MEDS: SODIUM HYPOCHLORITE 0.25% (HALF STRENGTH) 480 ML BOTTLE TOP SCH (09:52)
[2020-10-31] MEDS: THERAHONEY GEL 1.5 OZ TUBE TOP SCH (09:52)
[2020-10-31] MEDS: OMEGA-3 FATTY ACIDS/FISH OIL CAPSULE PO SCH (11:58)
[2020-10-31 15:44] VITALS: BP 142/54
[2020-10-31] MEDS: INSULIN REGULAR, HUMAN 300 UNIT/3 ML VIAL SQ PRN (16:54)
[2020-10-31 20:05] VITALS: BP 133/48
[2020-10-31] MEDS: MAGNESIUM OXIDE 250 MG TABLET PO SCH (20:20)
[2020-10-31] MEDS: ENOXAPARIN SODIUM 40 MG/0.4 ML DISP.SYRIN SQ SCH (20:21)
[2020-10-31] MEDS: INSULIN REGULAR, HUMAN 300 UNITS/3 ML VIAL SQ PRN (20:22)
[2020-11-01 05:35] VITALS: BP 130/55
[2020-11-01] MEDS: BLOOD SUGAR DIAGNOSTIC 1 EACH STRIP VI SCH ×4 (07:01→20:00)
[2020-11-01] MEDS: INSULIN REGULAR, HUMAN 300 UNIT/3 ML VIAL SQ PRN ×2 (07:52→12:29)
[2020-11-01 08:02] VITALS: BP 123/49
[2020-11-01] MEDS: THERAHONEY GEL 1.5 OZ TUBE TOP SCH (09:00)
[2020-11-01] MEDS: SENNOSIDES/DOCUSATE SODIUM TABLET PO SCH ×2 (09:00→16:55)
[2020-11-01] MEDS: ANASTROZOLE 1 MG TABLET PO SCH (09:06)
[2020-11-01] MEDS: AMLODIPINE 10 MG TABLET PO SCH (09:07)
[2020-11-01] MEDS: CELECOXIB 200 MG CAPSULE PO SCH ×2 (09:08→19:57)
[2020-11-01] MEDS: FOLIC ACID 1 MG TABLET PO SCH (09:08)
[2020-11-01] MEDS: ZINC SULFATE 220 MG CAPSULE PO SCH (09:08)
[2020-11-01] MEDS: OMEGA-3 FATTY ACIDS/FISH OIL CAPSULE PO SCH (09:08)
[2020-11-01] MEDS: HYDROCHLOROTHIAZIDE 25 MG TABLET PO SCH (09:08)
[2020-11-01] MEDS: ASCORBIC ACID 500 MG TABLET PO SCH (09:08)
[2020-11-01] MEDS: METFORMIN HCL 500 MG TABLET PO SCH (09:09)
[2020-11-01] MEDS: LIDOCAINE 5% PATCH TD SCH (09:10)
[2020-11-01] MEDS: CYANOCOBALAMIN 100 MCG TABLET PO SCH (09:10)
[2020-11-01] MEDS: VALSARTAN 160 MG TABLET PO SCH (09:10)
[2020-11-01] MEDS: NYSTATIN POWDER 15 GM BOTTLE TOP SCH ×2 (09:10→20:00)
[2020-11-01] MEDS: VITAMIN B COMPLEX 1 TABLET PO SCH (09:11)
[2020-11-01] MEDS: SODIUM HYPOCHLORITE 0.25% (HALF STRENGTH) 480 ML BOTTLE TOP SCH (09:12)
--- NOTE | 2020-11-01 10:00 | NUR ---
Received patient in bed alert and oriented x 4, denies of any pain. Pleasant and cooperative upon assessment. @ 0900 dressing changed per patient she wants the outside dressing to be change. All due medications given per MD ordered. Midline on the right upper arm patent. On presley catheter draining well urine yellow in color. Call light placed withhin easy reach. All needs met promptly. Will continue to monitor.
[2020-11-01 15:59] VITALS: BP 122/50
[2020-11-01 19:44] VITALS: BP 137/53
[2020-11-01] MEDS: MAGNESIUM OXIDE 250 MG TABLET PO SCH (19:57)
[2020-11-01] MEDS: ENOXAPARIN SODIUM 40 MG/0.4 ML DISP.SYRIN SQ SCH (19:59)
[2020-11-01] MEDS: INSULIN REGULAR, HUMAN 300 UNITS/3 ML VIAL SQ PRN (20:05)
--- NOTE | 2020-11-01 21:00 | NUR ---
No acute distress noted. Denies pain/ discomfort. Due meds administered. Accucheck 144, insulin coverage given per sliding scale. Davis catheter intact, draining well with clear yellow colored urine. Right upper arm midline flushed, patent and intact. Safety measures maintained. Kept clean, dry and comfortable. Call light within reach. Safety measures maintained. Will continue plan of care.
[2020-11-02 04:40] VITALS: BP 146/65
[2020-11-02] MEDS: BLOOD SUGAR DIAGNOSTIC 1 EACH STRIP VI SCH ×4 (07:49→21:04)
[2020-11-02 08:11] VITALS: BP 131/51
[2020-11-02] MEDS: INSULIN REGULAR, HUMAN 300 UNIT/3 ML VIAL SQ PRN ×2 (08:26→12:00)
[2020-11-02] MEDS: SENNOSIDES/DOCUSATE SODIUM TABLET PO SCH ×2 (09:00→16:39)
[2020-11-02] MEDS: THERAHONEY GEL 1.5 OZ TUBE TOP SCH (09:00)
[2020-11-02] MEDS: ANASTROZOLE 1 MG TABLET PO SCH (09:28)
[2020-11-02] MEDS: OMEGA-3 FATTY ACIDS/FISH OIL CAPSULE PO SCH (09:29)
[2020-11-02] MEDS: VITAMIN B COMPLEX 1 TABLET PO SCH (09:29)
[2020-11-02] MEDS: AMLODIPINE 10 MG TABLET PO SCH (09:30)
[2020-11-02] MEDS: CELECOXIB 200 MG CAPSULE PO SCH ×2 (09:30→20:56)
[2020-11-02] MEDS: HYDROCHLOROTHIAZIDE 25 MG TABLET PO SCH (09:30)
[2020-11-02] MEDS: FOLIC ACID 1 MG TABLET PO SCH (09:30)
[2020-11-02] MEDS: METFORMIN HCL 500 MG TABLET PO SCH (09:32)
[2020-11-02] MEDS: ASCORBIC ACID 500 MG TABLET PO SCH (09:33)
[2020-11-02] MEDS: VALSARTAN 160 MG TABLET PO SCH (09:33)
[2020-11-02] MEDS: ZINC SULFATE 220 MG CAPSULE PO SCH (09:33)
[2020-11-02] MEDS: LIDOCAINE 5% PATCH TD SCH (09:33)
[2020-11-02] MEDS: CYANOCOBALAMIN 100 MCG TABLET PO SCH (09:34)
[2020-11-02] MEDS: NYSTATIN POWDER 15 GM BOTTLE TOP SCH (09:34)
[2020-11-02] MEDS: SODIUM HYPOCHLORITE 0.25% (HALF STRENGTH) 480 ML BOTTLE TOP SCH (09:41)
--- NOTE | 2020-11-02 13:33 | NUR ---
Wound care provided with ISABELLA Payne Walk at bedside. Pt tolerated well, no acute distress or reports of pain at this time. ISABELLA Payne Walk with new orders in place. Will carry out and provide wound care per order. Continue to monitor.
[2020-11-02 15:29] VITALS: BP 119/61
--- NOTE | 2020-11-02 18:47 | NUR ---
EOSS: Pt resting in bed, A&Ox4, able to verbalize needs. No acute distress. Denies pain/discomfort at this time. Due medications given per order, no a/r noted. Pt refused Winnie-Colace today, per pt "having good BMs". KETURAH double lumen midline patent and intact. Davis catheter patent, draining yellow urine. Safety measures maintained. Call light and belongings within reach. Will endorse care to night clerk nurse.
--- NOTE | 2020-11-02 19:00 | NUR ---
In bed, eyes closed while talking in her cell phone. Noticed presence in the room and terminated conversation. So proud relating to nurse that she finally walked with PT a little bit further, although she called it shuffling. Denies any pain/discomforts. F/C intact and draining well with clear yellow output. Wound dressings dry and intact. Safety measures and afll prevention maintained. Continue care as planned.
[2020-11-02 20:36] VITALS: BP 122/42
[2020-11-02] MEDS: MAGNESIUM OXIDE 250 MG TABLET PO SCH (20:56)
[2020-11-02] MEDS: ENOXAPARIN SODIUM 40 MG/0.4 ML DISP.SYRIN SQ SCH (20:58)
[2020-11-02] MEDS: INSULIN REGULAR, HUMAN 300 UNITS/3 ML VIAL SQ PRN (21:05)
[2020-11-03 04:30] VITALS: BP 150/54
[2020-11-03] MEDS: BLOOD SUGAR DIAGNOSTIC 1 EACH STRIP VI SCH ×4 (06:25→20:54)
[2020-11-03 07:36] VITALS: BP 125/48
[2020-11-03] MEDS: INSULIN REGULAR, HUMAN 300 UNIT/3 ML VIAL SQ PRN ×3 (07:56→16:46)
[2020-11-03] MEDS: SENNOSIDES/DOCUSATE SODIUM TABLET PO SCH ×3 (08:35→17:17)
[2020-11-03] MEDS: FOLIC ACID 1 MG TABLET PO SCH (08:35)
[2020-11-03] MEDS: OMEGA-3 FATTY ACIDS/FISH OIL CAPSULE PO SCH (08:35)
[2020-11-03] MEDS: METFORMIN HCL 500 MG TABLET PO SCH (08:36)
[2020-11-03] MEDS: CELECOXIB 200 MG CAPSULE PO SCH ×2 (08:36→20:55)
[2020-11-03] MEDS: HYDROCHLOROTHIAZIDE 25 MG TABLET PO SCH (08:36)
[2020-11-03] MEDS: CYANOCOBALAMIN 100 MCG TABLET PO SCH (08:37)
[2020-11-03] MEDS: ASCORBIC ACID 500 MG TABLET PO SCH (08:37)
[2020-11-03] MEDS: ZINC SULFATE 220 MG CAPSULE PO SCH (08:37)
[2020-11-03] MEDS: AMLODIPINE 10 MG TABLET PO SCH (08:38)
[2020-11-03] MEDS: VALSARTAN 160 MG TABLET PO SCH (08:38)
[2020-11-03] MEDS: LIDOCAINE 5% PATCH TD SCH (08:39)
[2020-11-03] MEDS: VITAMIN B COMPLEX 1 TABLET PO SCH (08:51)
[2020-11-03] MEDS: ANASTROZOLE 1 MG TABLET PO SCH (08:51)
[2020-11-03 15:15] VITALS: BP 117/69
--- NOTE | 2020-11-03 16:13 | NUR ---
Patient is alert, oriented x4, no sob, resp even nonlabored, skin warm and dry to touch, patient is in stable condition, wound care is provided with NETTIE Payne, wound is clean and dry, scant amount of serosanguineous drainage from buttock wound noted on iodoform, no odor noted, buttock wound is tunnelling and undermining, perineal wound is tunneling as well, however no drainage noted. okayed by wound care DIRECTOR EXTERNAL COMMUNICATIONS Yvaned to discontinue the presley catheter, as well okayed by niyah SHEFFIELD nephrology. patient teaching provided ahead of time what to expect after dc presley catheter, bladder muscle might take sometime to get use to urinate or contract or get bakc to routine, you might have retention,nurses might have to do straight cath or might have to put presley back, might have to put you on bedside commode multiple times. patient verbalized understanding of it and agreed to go through the process.
--- NOTE | 2020-11-03 19:03 | NUR ---
Davis catheter discontinued, continue to monitor for voiding
[2020-11-03 20:06] VITALS: BP 131/48
[2020-11-03] MEDS: MAGNESIUM OXIDE 250 MG TABLET PO SCH (20:55)
[2020-11-03] MEDS: ENOXAPARIN SODIUM 40 MG/0.4 ML DISP.SYRIN SQ SCH (20:57)
[2020-11-03] MEDS: INSULIN REGULAR, HUMAN 300 UNITS/3 ML VIAL SQ PRN (20:59)
--- NOTE | 2020-11-03 22:42 | NUR ---
Received patient No acute distress noted. Denies pain/ discomfort. Due meds administered. Accu-check done, insulin coverage given per sliding scale. monitor for s/p Davis catheter removal patient voided times 2 with no discomfort clear yellow colored urine, no odor. Right upper arm midline flushed, patent and intact. Safety measures maintained. Kept clean, dry and comfortable. Call light within reach. Will continue plan of care.
[2020-11-04 04:03] VITALS: BP 116/72
--- NOTE | 2020-11-04 04:45 | NUR ---
Patient slept well with no acute distress, no c/o pain discomfort, voiding well, continue monitoring. will endorse accordingly to AM shift.
--- NOTE | 2020-11-04 05:21 | NUR ---
Offered Monday night wound photos to be done, patient stated " morning She will be having her debridement, she prefers her photos to be taken that time." Respected patient right. will endorse accordingly AM shift nurse.
[2020-11-04] MEDS: BLOOD SUGAR DIAGNOSTIC 1 EACH STRIP VI SCH ×4 (06:41→21:05)
[2020-11-04 08:00] VITALS: BP 111/50
[2020-11-04] MEDS: INSULIN REGULAR, HUMAN 300 UNIT/3 ML VIAL SQ PRN ×2 (08:49→12:35)
[2020-11-04] MEDS: SENNOSIDES/DOCUSATE SODIUM TABLET PO SCH ×2 (09:00→17:00)
[2020-11-04] MEDS: LIDOCAINE 5% PATCH TD SCH ×2 (09:45→09:49)
[2020-11-04] MEDS: ZINC SULFATE 220 MG CAPSULE PO SCH (09:49)
[2020-11-04] MEDS: FOLIC ACID 1 MG TABLET PO SCH (09:49)
[2020-11-04] MEDS: VITAMIN B COMPLEX 1 TABLET PO SCH (09:49)
[2020-11-04] MEDS: CELECOXIB 200 MG CAPSULE PO SCH ×2 (09:49→21:02)
[2020-11-04] MEDS: ASCORBIC ACID 500 MG TABLET PO SCH (09:49)
[2020-11-04] MEDS: METFORMIN HCL 500 MG TABLET PO SCH (09:50)
[2020-11-04] MEDS: ANASTROZOLE 1 MG TABLET PO SCH (09:50)
[2020-11-04] MEDS: OMEGA-3 FATTY ACIDS/FISH OIL CAPSULE PO SCH (09:51)
[2020-11-04] MEDS: CYANOCOBALAMIN 100 MCG TABLET PO SCH (09:52)
[2020-11-04] MEDS: HYDROCHLOROTHIAZIDE 25 MG TABLET PO SCH (10:06)
[2020-11-04] MEDS: VALSARTAN 160 MG TABLET PO SCH (10:06)
[2020-11-04] MEDS: AMLODIPINE 10 MG TABLET PO SCH (10:06)
[2020-11-04 10:08] VITALS: BP 114/54
[2020-11-04 15:51] VITALS: BP 125/47
--- NOTE | 2020-11-04 18:39 | NUR ---
EOSS: Pt in bed watching TV, able to verbalize needs. No acute distress. VSS. Denies pain/discomfort at this time. Due medications given per order, no a/r noted. Pt declined Lidocaine patches and Winnie-Colace today, pt had 2 BMs. Pt voided spontaneously 5 times throughout shift, no reports of fullness or distention. Wound care administered per order. KETURAH double lumen midline patent and intact. Safety measures maintained. Call light and belongings within reach. Will endorse care to shift leader nurse.
[2020-11-04 20:00] VITALS: BP 114/36
[2020-11-04] MEDS: MAGNESIUM OXIDE 250 MG TABLET PO SCH (21:02)
[2020-11-04] MEDS: ENOXAPARIN SODIUM 40 MG/0.4 ML DISP.SYRIN SQ SCH (21:04)
[2020-11-04] MEDS: INSULIN REGULAR, HUMAN 300 UNITS/3 ML VIAL SQ PRN (21:05)
--- NOTE | 2020-11-05 02:22 | NUR ---
No acute distress noted. Denies pain/ discomfort. Due meds administered. Accucheck 207, insulin coverage given per sliding scale. Voiding freely. Right upper arm midline flushed, patent and intact. Safety measures maintained. Kept clean, dry and comfortable. Call light within reach. Safety measures maintained. Will continue plan of care.
[2020-11-05 04:00] VITALS: BP 119/43
[2020-11-05] MEDS: BLOOD SUGAR DIAGNOSTIC 1 EACH STRIP VI SCH ×4 (06:25→21:19)
[2020-11-05 07:43] VITALS: BP 117/43
[2020-11-05] MEDS: INSULIN REGULAR, HUMAN 300 UNIT/3 ML VIAL SQ PRN ×2 (08:12→12:14)
[2020-11-05] MEDS: METFORMIN HCL 500 MG TABLET PO SCH (08:59)
[2020-11-05] MEDS: OMEGA-3 FATTY ACIDS/FISH OIL CAPSULE PO SCH (09:00)
[2020-11-05] MEDS: ZINC SULFATE 220 MG CAPSULE PO SCH (09:00)
[2020-11-05] MEDS: FOLIC ACID 1 MG TABLET PO SCH (09:00)
[2020-11-05] MEDS: AMLODIPINE 10 MG TABLET PO SCH (09:00)
[2020-11-05] MEDS: LIDOCAINE 5% PATCH TD SCH (09:00)
[2020-11-05] MEDS: ASCORBIC ACID 500 MG TABLET PO SCH (09:00)
[2020-11-05] MEDS: SENNOSIDES/DOCUSATE SODIUM TABLET PO SCH ×3 (09:00→17:17)
[2020-11-05] MEDS: CYANOCOBALAMIN 100 MCG TABLET PO SCH (09:00)
[2020-11-05] MEDS: VALSARTAN 160 MG TABLET PO SCH (09:00)
[2020-11-05] MEDS: HYDROCHLOROTHIAZIDE 25 MG TABLET PO SCH (09:00)
[2020-11-05] MEDS: CELECOXIB 200 MG CAPSULE PO SCH ×2 (09:00→20:38)
[2020-11-05] MEDS: VITAMIN B COMPLEX 1 TABLET PO SCH (09:05)
[2020-11-05] MEDS: ANASTROZOLE 1 MG TABLET PO SCH (09:05)
[2020-11-05 15:17] VITALS: BP 116/48
--- NOTE | 2020-11-05 15:51 | NUR ---
patient is able to transfer herself with fww from bed to bedside commode and vise versa, however needs some help for cleaning, patient stated she is looking forward to ambulate to the bathroom in day or two, continue to encourage patient to participate more as tolerated to enhance independence. participated with PT, OT services, tolerated well. no acute distress noted, no nausea, no vomiting, no fever, voiding well. debridement done to buttock wound by PA, wound is pink in color, however tunnelling and undermining, dressing is intact, dry and clean. perineal wound is pink in color, however tunnelling as well, dressing intact, clean and dry. patient agreed to change her room for the connivence of transferring to the bedside commode,
[2020-11-05 20:00] VITALS: BP 114/52
[2020-11-05] MEDS: MAGNESIUM OXIDE 250 MG TABLET PO SCH (20:38)
[2020-11-05] MEDS: ENOXAPARIN SODIUM 40 MG/0.4 ML DISP.SYRIN SQ SCH (20:41)
[2020-11-05] MEDS: INSULIN REGULAR, HUMAN 300 UNITS/3 ML VIAL SQ PRN (20:42)
[2020-11-06 04:00] VITALS: BP 126/54
--- NOTE | 2020-11-06 05:42 | NUR ---
Received pt from Jessica KWAN. Pt is A&Ox4, verbally responsive, able to make needs known. IV access intact and patent. Dressing intact. Safety measures maintained at all times. call light within reach. all needs attended.
[2020-11-06] MEDS: BLOOD SUGAR DIAGNOSTIC 1 EACH STRIP VI SCH ×4 (06:39→20:22)
[2020-11-06 07:42] VITALS: BP 133/54
[2020-11-06] MEDS: ANASTROZOLE 1 MG TABLET PO SCH (08:55)
[2020-11-06] MEDS: INSULIN REGULAR, HUMAN 300 UNIT/3 ML VIAL SQ PRN ×2 (08:55→12:37)
[2020-11-06] MEDS: VALSARTAN 160 MG TABLET PO SCH (09:00)
[2020-11-06] MEDS: AMLODIPINE 10 MG TABLET PO SCH (09:00)
[2020-11-06] MEDS: SENNOSIDES/DOCUSATE SODIUM TABLET PO SCH ×2 (09:00→16:49)
[2020-11-06] MEDS: LIDOCAINE 5% PATCH TD SCH (09:01)
[2020-11-06] MEDS: METFORMIN HCL 500 MG TABLET PO SCH (09:02)
[2020-11-06] MEDS: CYANOCOBALAMIN 100 MCG TABLET PO SCH (09:03)
[2020-11-06] MEDS: OMEGA-3 FATTY ACIDS/FISH OIL CAPSULE PO SCH (09:04)
[2020-11-06] MEDS: ASCORBIC ACID 500 MG TABLET PO SCH (09:04)
[2020-11-06] MEDS: ZINC SULFATE 220 MG CAPSULE PO SCH (09:04)
[2020-11-06] MEDS: CELECOXIB 200 MG CAPSULE PO SCH ×2 (09:04→20:20)
[2020-11-06] MEDS: FOLIC ACID 1 MG TABLET PO SCH (09:04)
[2020-11-06] MEDS: HYDROCHLOROTHIAZIDE 25 MG TABLET PO SCH (09:04)
[2020-11-06] MEDS: VITAMIN B COMPLEX 1 TABLET PO SCH (09:05)
--- NOTE | 2020-11-06 14:02 | NUR ---
Received patient in bed, alert and oriented x 4, denies of any pain, patient on room air saturating at 96% with no s/sx of distress. Dressing change on the right buttock wound and surgical incision site. Seen and examined by Elmer Biggs. All due meds given as order , all needs met promptly and call light placed within reach.
[2020-11-06 14:54] VITALS: BP 114/54
--- NOTE | 2020-11-06 18:49 | NUR ---
Patient in bed watching TV comfortably, denies of any pain. KETURAH midline patent. @2648 BS is 123 with no insulin coverage. All needs met promptly. Call light placed within reach. Will endorse accordingly.
[2020-11-06 20:13] VITALS: BP 125/53
[2020-11-06] MEDS: MAGNESIUM OXIDE 250 MG TABLET PO SCH (20:20)
[2020-11-06] MEDS: ENOXAPARIN SODIUM 40 MG/0.4 ML DISP.SYRIN SQ SCH (20:21)
[2020-11-06] MEDS: INSULIN REGULAR, HUMAN 300 UNITS/3 ML VIAL SQ PRN (20:22)
[2020-11-07 04:21] VITALS: BP 131/57
[2020-11-07] MEDS: BLOOD SUGAR DIAGNOSTIC 1 EACH STRIP VI SCH ×3 (06:34→16:42)
[2020-11-07] MEDS: INSULIN REGULAR, HUMAN 300 UNIT/3 ML VIAL SQ PRN ×2 (08:07→12:30)
[2020-11-07 08:08] VITALS: BP 134/51
[2020-11-07] MEDS: SENNOSIDES/DOCUSATE SODIUM TABLET PO SCH ×3 (09:00→20:42)
[2020-11-07] MEDS: VALSARTAN 160 MG TABLET PO SCH (09:00)
[2020-11-07] MEDS: ASCORBIC ACID 500 MG TABLET PO SCH (09:34)
[2020-11-07] MEDS: CYANOCOBALAMIN 100 MCG TABLET PO SCH (09:34)
[2020-11-07] MEDS: OMEGA-3 FATTY ACIDS/FISH OIL CAPSULE PO SCH (09:35)
[2020-11-07] MEDS: METFORMIN HCL 500 MG TABLET PO SCH (09:35)
[2020-11-07] MEDS: FOLIC ACID 1 MG TABLET PO SCH (09:35)
[2020-11-07] MEDS: CELECOXIB 200 MG CAPSULE PO SCH ×2 (09:35→20:21)
[2020-11-07] MEDS: ZINC SULFATE 220 MG CAPSULE PO SCH (09:36)
[2020-11-07] MEDS: LIDOCAINE 5% PATCH TD SCH (09:36)
[2020-11-07] MEDS: VITAMIN B COMPLEX 1 TABLET PO SCH (09:37)
[2020-11-07] MEDS: ANASTROZOLE 1 MG TABLET PO SCH (09:38)
[2020-11-07] MEDS: HYDROCHLOROTHIAZIDE 25 MG TABLET PO SCH (09:38)
[2020-11-07] MEDS: AMLODIPINE 10 MG TABLET PO SCH (09:40)
--- NOTE | 2020-11-07 10:29 | NUR ---
Received patient in bed, alert and oriented x 4, KETURAH midline patent , all due meds given per MD order. Dressing on the surgical site intact and dressing on the right buttocks intact. All needs met in a timely manner. Placed call light within reach.
--- NOTE | 2020-11-07 13:15 | NUR ---
Patient had a shower today and the dressing on the surgical site and right buttock were change no redness noted and no bleeding.
[2020-11-07 15:05] VITALS: BP 117/53
--- NOTE | 2020-11-07 18:42 | NUR ---
patient in bed watching tv denies of any pain, all needs met promptly. No s/s of distress. Will endorse accordingly.
[2020-11-07 20:09] VITALS: BP 130/62
[2020-11-07] MEDS: MAGNESIUM OXIDE 250 MG TABLET PO SCH (20:21)
[2020-11-07] MEDS: ENOXAPARIN SODIUM 40 MG/0.4 ML DISP.SYRIN SQ SCH (20:21)
[2020-11-08 04:42] VITALS: BP 122/55
[2020-11-08 08:47] VITALS: BP 135/59
[2020-11-08] MEDS: VALSARTAN 160 MG TABLET PO SCH (09:00)
[2020-11-08] MEDS: ANASTROZOLE 1 MG TABLET PO SCH (09:09)
[2020-11-08] MEDS: ASCORBIC ACID 500 MG TABLET PO SCH (09:11)
[2020-11-08] MEDS: CYANOCOBALAMIN 100 MCG TABLET PO SCH (09:11)
[2020-11-08] MEDS: HYDROCHLOROTHIAZIDE 25 MG TABLET PO SCH (09:11)
[2020-11-08] MEDS: METFORMIN HCL 500 MG TABLET PO SCH (09:11)
[2020-11-08] MEDS: GLIMEPIRIDE 2 MG TABLET PO SCH (09:12)
[2020-11-08] MEDS: FOLIC ACID 1 MG TABLET PO SCH (09:12)
[2020-11-08] MEDS: OMEGA-3 FATTY ACIDS/FISH OIL CAPSULE PO SCH (09:12)
[2020-11-08] MEDS: CELECOXIB 200 MG CAPSULE PO SCH ×2 (09:13→20:40)
[2020-11-08] MEDS: ZINC SULFATE 220 MG CAPSULE PO SCH (09:13)
[2020-11-08] MEDS: SENNOSIDES/DOCUSATE SODIUM TABLET PO SCH ×2 (09:14→20:40)
[2020-11-08] MEDS: VITAMIN B COMPLEX 1 TABLET PO SCH (09:14)
[2020-11-08] MEDS: AMLODIPINE 10 MG TABLET PO SCH (09:14)
[2020-11-08] MEDS: LIDOCAINE 5% PATCH TD SCH (09:16)
--- NOTE | 2020-11-08 12:28 | NUR ---
Patient in bed , alert and oriented x 4, denies of any pain at this time. Call light placed within reach. Wound treatment done and dressing change on her surgical site and right buttocks with no redness and no bleeding noted. All due meds given per MD order. Placed call light within easy reach. Patient went off the unit for therapy and came back after an hour.
--- NOTE | 2020-11-08 13:00 | NUR ---
Seen by Dr. Vogel and ordered for accucheck ACHS without coverage to evaluate for danielle. Patient is aware. Noted and carried out.
[2020-11-08] MEDS ORDERED: DEXTROSE 50% 50 ML DISP.SYRIN IV PRN ×2 (13:15→19:45)
[2020-11-08] MEDS ORDERED: INSULIN REGULAR, HUMAN 300 UNIT/3 ML VIAL SQ PRN ×2 (13:15→19:45)
[2020-11-08 16:20] VITALS: BP 109/53
[2020-11-08] MEDS: BLOOD SUGAR DIAGNOSTIC 1 EACH STRIP VI SCH ×2 (17:00→21:15)
[2020-11-08 20:16] VITALS: BP 131/50
[2020-11-08] MEDS: ENOXAPARIN SODIUM 40 MG/0.4 ML DISP.SYRIN SQ SCH (20:39)
[2020-11-08] MEDS: MAGNESIUM OXIDE 250 MG TABLET PO SCH (20:40)
[2020-11-08] MEDS ORDERED: BLOOD SUGAR DIAGNOSTIC 1 EACH STRIP VI SCH (21:00)
[2020-11-09 04:25] VITALS: BP 130/58
[2020-11-09] MEDS: BLOOD SUGAR DIAGNOSTIC 1 EACH STRIP VI SCH ×4 (07:31→20:17)
[2020-11-09 08:00] VITALS: BP 132/58
[2020-11-09] MEDS: VALSARTAN 160 MG TABLET PO SCH (09:00)
[2020-11-09] MEDS: SENNOSIDES/DOCUSATE SODIUM TABLET PO SCH ×2 (09:00→20:13)
[2020-11-09] MEDS: LIDOCAINE 5% PATCH TD SCH (09:00)
[2020-11-09] MEDS: ANASTROZOLE 1 MG TABLET PO SCH (09:11)
[2020-11-09] MEDS: CELECOXIB 200 MG CAPSULE PO SCH ×2 (09:12→20:13)
[2020-11-09] MEDS: FOLIC ACID 1 MG TABLET PO SCH (09:12)
[2020-11-09] MEDS: OMEGA-3 FATTY ACIDS/FISH OIL CAPSULE PO SCH (09:12)
[2020-11-09] MEDS: ZINC SULFATE 220 MG CAPSULE PO SCH (09:12)
[2020-11-09] MEDS: AMLODIPINE 10 MG TABLET PO SCH (09:12)
[2020-11-09] MEDS: VITAMIN B COMPLEX 1 TABLET PO SCH (09:13)
[2020-11-09] MEDS: HYDROCHLOROTHIAZIDE 25 MG TABLET PO SCH (09:13)
[2020-11-09] MEDS: METFORMIN HCL 500 MG TABLET PO SCH (09:14)
[2020-11-09] MEDS: CYANOCOBALAMIN 100 MCG TABLET PO SCH (09:14)
[2020-11-09] MEDS: ASCORBIC ACID 500 MG TABLET PO SCH (09:15)
[2020-11-09] MEDS: GLIMEPIRIDE 2 MG TABLET PO SCH (09:20)
--- NOTE | 2020-11-09 10:16 | NUR ---
Patient in bed, alert and pleasant upon assessment. Dressing changed on her right buttocks as it is soiled . No redness noted. Kept skin clean and dry. All due meds given as ordered. Placed call light within reach. Patient on room air saturating at 95% . All needs met. KETURAH midline patent.
[2020-11-09 16:17] VITALS: BP 112/49
--- NOTE | 2020-11-09 20:03 | NUR ---
RECEIVED PATIENT AWAKE IN BED. A/O X4. DENIES ANY PAIN OR DISCOMFORT AT THIS TIME. NO RESP. DISTRESS NOTED. ON AIR MATTRESS. VS WNL. MID-LINE NOTED TO RIGHT UPPER ARM, INTACT AND PATENT, COVERED BY GANG WORKER. CALL LIGHT IN REACH. ALL NEEDS ATTENDED. WILL CONTINUE TO MONITOR AND ASSESS.
[2020-11-09] MEDS: ENOXAPARIN SODIUM 40 MG/0.4 ML DISP.SYRIN SQ SCH (20:12)
[2020-11-09] MEDS: MAGNESIUM OXIDE 250 MG TABLET PO SCH (20:13)
[2020-11-09 20:20] VITALS: BP 111/47
[2020-11-10 04:27] VITALS: BP 126/64
--- NOTE | 2020-11-10 05:19 | NUR ---
PATIENT AWAKE IN BED. SLEPT AT SMALL INTERVALS. DRESSING NOTED TO BUTTOCKS, CHANGED, C/D/I. VS WNL. NO C/O PAIN AT THIS TIME. CALL LIGHT IN REACH. ALL NEEDS ATTENDED. WILL CONTINUE TO MONITOR AND ASSESS.
[2020-11-10] MEDS: BLOOD SUGAR DIAGNOSTIC 1 EACH STRIP VI SCH ×4 (06:22→20:34)
[2020-11-10 06:52] LABS: BASOPHILS % (AUTO) 0.3 % (0.0-2.0); BILIRUBIN,TOTAL 0.3 mg/dL (0.2-1.0); EOSINOPHILS # (AUTO) 0.2 K/uL (0.0-0.7); EOSINOPHILS % (AUTO) 2.1 % (0.0-7.0); HEMATOCRIT 32.6 % (31.2-41.9); HEMOGLOBIN 10.4 g/dL (10.9-14.3); LYMPHOCYTES # (AUTO) 1.8 K/uL (20.0-40.0); LYMPHOCYTES % (AUTO) 15.9 % (20.5-51.5); MAGNESIUM 2.4 mg/dL (1.8-2.4); MEAN CORPUSCULAR HEMOGLOBIN 26.8 uug (24.7-32.8); MEAN CORPUSCULAR HGB CONC 32 g/dL (32.3-35.6); MEAN CORPUSCULAR VOLUME 84.3 fL (75.5-95.3); MONOCYTES % (AUTO) 8.6 % (0.0-11.0); NEUTROPHILS # (AUTO) 8.3 K/uL (1.8-8.9); NEUTROPHILS % (AUTO) 73.1 % (38.5-71.5); PHOSPHOROUS 4.5 mg/dL (2.5-4.9); PLATELET COUNT (AUTO) 478 K/uL (179-408); POTASSIUM 4.4 mmol/L (3.5-5.1); RED BLOOD CELL COUNT(AUTO) 3.87 MIL/uL (3.63-4.92); TOTAL PROTEIN, SERUM 6.8 g/dL (6.4-8.2)
[2020-11-10 07:04] LABS: WHITE BLOOD COUNT (AUTO) 11.3 K/uL (3.8-11.8)
[2020-11-10 08:00] VITALS: BP 128/57
[2020-11-10] MEDS: GLIMEPIRIDE 2 MG TABLET PO SCH (08:36)
[2020-11-10] MEDS: ASCORBIC ACID 500 MG TABLET PO SCH (08:37)
[2020-11-10] MEDS: OMEGA-3 FATTY ACIDS/FISH OIL CAPSULE PO SCH (08:37)
[2020-11-10] MEDS: FOLIC ACID 1 MG TABLET PO SCH (08:37)
[2020-11-10] MEDS: CELECOXIB 200 MG CAPSULE PO SCH ×2 (08:38→20:29)
[2020-11-10] MEDS: HYDROCHLOROTHIAZIDE 25 MG TABLET PO SCH (08:39)
[2020-11-10] MEDS: CYANOCOBALAMIN 100 MCG TABLET PO SCH (08:40)
[2020-11-10] MEDS: METFORMIN HCL 500 MG TABLET PO SCH (08:40)
[2020-11-10] MEDS: ZINC SULFATE 220 MG CAPSULE PO SCH (08:40)
[2020-11-10] MEDS: VITAMIN B COMPLEX 1 TABLET PO SCH (08:42)
[2020-11-10] MEDS: ANASTROZOLE 1 MG TABLET PO SCH (08:42)
[2020-11-10] MEDS: LIDOCAINE 5% PATCH TD SCH (08:45)
[2020-11-10] MEDS: SENNOSIDES/DOCUSATE SODIUM TABLET PO SCH ×2 (08:46→20:29)
[2020-11-10] MEDS: VALSARTAN 160 MG TABLET PO SCH (08:47)
[2020-11-10] MEDS: AMLODIPINE 10 MG TABLET PO SCH (08:54)
[2020-11-10 15:05] VITALS: BP 123/51
--- NOTE | 2020-11-10 18:43 | NUR ---
Patient awake in bed. Alert and oriented x4. No signs of acute distress. Patient denies any pain/ discomfort. Wound care done. Patient participated with Physical and Occupational Therapy. Medications given as ordered and tolerated well. Patient compliant with care. Safety and comfort measures provided. Will endorse to incoming shift.
[2020-11-10 20:05] VITALS: BP 125/51
[2020-11-10] MEDS: MAGNESIUM OXIDE 250 MG TABLET PO SCH (20:30)
[2020-11-10] MEDS: ENOXAPARIN SODIUM 40 MG/0.4 ML DISP.SYRIN SQ SCH (20:38)
--- NOTE | 2020-11-10 23:39 | NUR ---
awake alert and oriented. Watching TV upon initial rounds. In good spirits. VSS. Needs attended. Voiding well. Continent of bowel & bladder. Uses diaper @ night. Denies any pain nor any discomfort. Dressing intact to right groin wound and right buttocks. Will monitor patient.
[2020-11-11 04:05] VITALS: BP 127/54
[2020-11-11] MEDS: BLOOD SUGAR DIAGNOSTIC 1 EACH STRIP VI SCH ×4 (06:33→20:41)
--- NOTE | 2020-11-11 06:54 | NUR ---
End of shift notes: Quiet night. Slept well most of the shift. Needs attended. VSS. Kept comfortable. Denies any pain nor any discomfort. Will monitor patient. VSS.
[2020-11-11 08:00] VITALS: BP 120/47
[2020-11-11] MEDS: GLIMEPIRIDE 2 MG TABLET PO SCH (08:55)
[2020-11-11] MEDS: VALSARTAN 160 MG TABLET PO SCH (09:00)
[2020-11-11] MEDS: LIDOCAINE 5% PATCH TD SCH (09:00)
[2020-11-11] MEDS: SENNOSIDES/DOCUSATE SODIUM TABLET PO SCH ×2 (09:00→20:38)
[2020-11-11] MEDS: ASCORBIC ACID 500 MG TABLET PO SCH (09:19)
[2020-11-11] MEDS: VITAMIN B COMPLEX 1 TABLET PO SCH (09:19)
[2020-11-11] MEDS: CYANOCOBALAMIN 100 MCG TABLET PO SCH (09:20)
[2020-11-11] MEDS: ZINC SULFATE 220 MG CAPSULE PO SCH (09:20)
[2020-11-11] MEDS: OMEGA-3 FATTY ACIDS/FISH OIL CAPSULE PO SCH (09:20)
[2020-11-11] MEDS: CELECOXIB 200 MG CAPSULE PO SCH ×2 (09:20→20:36)
[2020-11-11] MEDS: FOLIC ACID 1 MG TABLET PO SCH (09:20)
[2020-11-11] MEDS: AMLODIPINE 10 MG TABLET PO SCH (09:21)
[2020-11-11] MEDS: METFORMIN HCL 500 MG TABLET PO SCH (09:21)
[2020-11-11] MEDS: HYDROCHLOROTHIAZIDE 25 MG TABLET PO SCH (09:21)
[2020-11-11] MEDS: ANASTROZOLE 1 MG TABLET PO SCH (09:24)
--- NOTE | 2020-11-11 10:41 | NUR ---
Received pt in bed, A&Ox4, able to verbalize needs, all need met at this time. No acute distress, VSS. Pt denies pain/discomfort at this time. Due medications given per order, no a/r noted. Pt refused Valsartan, Lidocaine patches, and Winnie-Colace this am. KETURAH midline patent and intact. Safety measures and fall precautions in place. Call light and belongings within reach. Will continue to monitor.
[2020-11-11 16:09] VITALS: BP 126/52
--- NOTE | 2020-11-11 19:03 | NUR ---
EOSS: Pt awake in bed, no acute distress. Denies pain/discomfort at this time. All needs met at this time. Due medications given per order, no a/r noted. KETURAH double lumen midline patent and intact. Right buttock wound care provided by ISABELLA Biggs at bedside. Per pt, will receive debridement tomorrow, photos and measurements will be taken at that time. This health science writer provided front groin wound care per order. Pt participated with PT today, tolerated well. Safety measures and fall precautions maintained. Call light and belongings within reach. Will endorse care to restaurant shift leader nurse.
[2020-11-11 20:05] VITALS: BP 128/53
[2020-11-11] MEDS: MAGNESIUM OXIDE 250 MG TABLET PO SCH (20:36)
[2020-11-11] MEDS: ENOXAPARIN SODIUM 40 MG/0.4 ML DISP.SYRIN SQ SCH (20:43)
--- NOTE | 2020-11-11 23:47 | NUR ---
Awake alert and oriented x4. Attended to needs. VSS Kept comfortable. Fall precautions maintained. OOB to the BR with supervision. Continent/ incontinent at times. Wears diapers at night. Wound dressings clean dry and intact. For possible debridement in am. No complaints of pain presented this shift. Tolerated po meds well.
[2020-11-12 04:05] VITALS: BP 134/52
--- NOTE | 2020-11-12 06:21 | NUR ---
End of shift notes: Slept well throughout the night. AAOx4 Ambulates to BR with supervision. Dressing intact. Denies any pain nor any discomfort. VSS. Accucheck this am 100. No coverage given. Fall precautions maintained. Siderails up for safety. All needs attended and met.
[2020-11-12] MEDS: BLOOD SUGAR DIAGNOSTIC 1 EACH STRIP VI SCH ×4 (06:32→21:24)
[2020-11-12 07:00] LABS: BASOPHILS % (AUTO) 0.3 % (0.0-2.0); EOSINOPHILS # (AUTO) 0.3 K/uL (0.0-0.7); EOSINOPHILS % (AUTO) 3.9 % (0.0-7.0); HEMOGLOBIN 10.5 g/dL (10.9-14.3); LYMPHOCYTES # (AUTO) 2.6 K/uL (20.0-40.0); LYMPHOCYTES % (AUTO) 36.2 % (20.5-51.5); MEAN CORPUSCULAR HEMOGLOBIN 27.7 uug (24.7-32.8); MEAN CORPUSCULAR HGB CONC 33 g/dL (32.3-35.6); MEAN CORPUSCULAR VOLUME 84.5 fL (75.5-95.3); MONOCYTES # (AUTO) 0.8 K/uL (2.0-10.0); MONOCYTES % (AUTO) 11.4 % (0.0-11.0); NEUTROPHILS # (AUTO) 3.4 K/uL (1.8-8.9); NEUTROPHILS % (AUTO) 48.2 % (38.5-71.5); PLATELET COUNT (AUTO) 516 K/uL (179-408); RED BLOOD CELL COUNT(AUTO) 3.78 MIL/uL (3.63-4.92); WHITE BLOOD COUNT (AUTO) 7.1 K/uL (3.8-11.8)
[2020-11-12 07:03] LABS: POTASSIUM 4.6 mmol/L (3.5-5.1)
[2020-11-12] MEDS: ASCORBIC ACID 500 MG TABLET PO SCH (08:18)
[2020-11-12] MEDS: GLIMEPIRIDE 2 MG TABLET PO SCH (08:18)
[2020-11-12] MEDS: METFORMIN HCL 500 MG TABLET PO SCH (08:18)
[2020-11-12] MEDS: AMLODIPINE 10 MG TABLET PO SCH (08:18)
[2020-11-12] MEDS: FOLIC ACID 1 MG TABLET PO SCH (08:18)
[2020-11-12] MEDS: OMEGA-3 FATTY ACIDS/FISH OIL CAPSULE PO SCH (08:18)
[2020-11-12] MEDS: CELECOXIB 200 MG CAPSULE PO SCH ×2 (08:19→21:07)
[2020-11-12] MEDS: HYDROCHLOROTHIAZIDE 25 MG TABLET PO SCH (08:19)
[2020-11-12] MEDS: CYANOCOBALAMIN 100 MCG TABLET PO SCH (08:20)
[2020-11-12] MEDS: VITAMIN B COMPLEX 1 TABLET PO SCH (08:20)
[2020-11-12] MEDS: ZINC SULFATE 220 MG CAPSULE PO SCH (08:20)
[2020-11-12] MEDS: ANASTROZOLE 1 MG TABLET PO SCH (08:21)
[2020-11-12] MEDS: SENNOSIDES/DOCUSATE SODIUM TABLET PO SCH ×2 (08:22→21:00)
[2020-11-12] MEDS: VALSARTAN 160 MG TABLET PO SCH (08:22)
[2020-11-12] MEDS: LIDOCAINE 5% PATCH TD SCH (08:23)
[2020-11-12 08:33] VITALS: BP 134/54
[2020-11-12 15:27] VITALS: BP 123/53
[2020-11-12 20:05] VITALS: BP 120/45
[2020-11-12] MEDS: MAGNESIUM OXIDE 250 MG TABLET PO SCH (21:07)
[2020-11-12] MEDS: ENOXAPARIN SODIUM 40 MG/0.4 ML DISP.SYRIN SQ SCH (21:08)
--- NOTE | 2020-11-12 22:37 | NUR ---
Received patient in bed, alert and verbally responsive. Can make needs known. Patient received due medications, refused haris-colace. Tolerated medications well. Patient teaching done regarding skin/ wound management and toileting. Will continue to monitor patient.
[2020-11-13 04:05] VITALS: BP 117/43
[2020-11-13] MEDS: BLOOD SUGAR DIAGNOSTIC 1 EACH STRIP VI SCH ×4 (06:32→20:27)
--- NOTE | 2020-11-13 07:30 | NUR ---
pt in bed resting, awake alert and oriented x4, pt has wound on right side of bottom, and top of haris area, dressings are clean dry and intact. pt is on room air, no signs of distress, no reports of pain at this time, pt able to ambulate with assist and walker. IV access on the right upper arm midline, 2 lumen saline lock. first step mattress, bed in low and locked position, call light within reach, safety and fall precautions in place, will continue with plan of care.
[2020-11-13 07:49] VITALS: BP 122/52
[2020-11-13] MEDS: CYANOCOBALAMIN 100 MCG TABLET PO SCH (08:27)
[2020-11-13] MEDS: FOLIC ACID 1 MG TABLET PO SCH (08:27)
[2020-11-13] MEDS: OMEGA-3 FATTY ACIDS/FISH OIL CAPSULE PO SCH (08:27)
[2020-11-13] MEDS: METFORMIN HCL 500 MG TABLET PO SCH (08:27)
[2020-11-13] MEDS: VALSARTAN 160 MG TABLET PO SCH (08:28)
[2020-11-13] MEDS: HYDROCHLOROTHIAZIDE 25 MG TABLET PO SCH (08:28)
[2020-11-13] MEDS: SENNOSIDES/DOCUSATE SODIUM TABLET PO SCH ×2 (08:29→20:26)
[2020-11-13] MEDS: ZINC SULFATE 220 MG CAPSULE PO SCH (08:29)
[2020-11-13] MEDS: GLIMEPIRIDE 2 MG TABLET PO SCH (08:30)
[2020-11-13] MEDS: AMLODIPINE 10 MG TABLET PO SCH (08:30)
[2020-11-13] MEDS: ASCORBIC ACID 500 MG TABLET PO SCH (08:30)
[2020-11-13] MEDS: CELECOXIB 200 MG CAPSULE PO SCH ×2 (08:30→20:27)
[2020-11-13] MEDS: VITAMIN B COMPLEX 1 TABLET PO SCH (08:32)
[2020-11-13] MEDS: ANASTROZOLE 1 MG TABLET PO SCH (08:32)
[2020-11-13] MEDS: LIDOCAINE 5% PATCH TD SCH (08:33)
[2020-11-13 14:44] VITALS: BP 122/46
--- NOTE | 2020-11-13 16:30 | NUR ---
Wound debridement and measurements were done by Elmer Biggs NP. The right buttocks had tunneling length of 6.5cm, dimensions 1.9x1.4cm and depth of 1.8cm. the front for the right groin was 1.3x.4cm and depth 2.1cm. Dressings clean dry and intact.
--- NOTE | 2020-11-13 16:37 | NUR ---
pt blood sugar is 64, pt given cranberry juice, charge nurse made aware, pt has no symptoms and is stating that this is usual for her by this time of day.
--- NOTE | 2020-11-13 18:19 | NUR ---
pt in bed resting, awake alert and oriented x4, pt has right side buttocks wound and right groin wound, both have been cleaned, packed and dressing intact and dry. pt on room air no signs of distress to reports of pain noted at this time. pt ambulatory with walker and standby assist BRP, IV access on the R UA midline 2 lumens saline lock. bed in low and locked position, call light within reach, safety and fall precautions in place, will endorse to oncoming nurse.
[2020-11-13 19:43] VITALS: BP 118/50
[2020-11-13] MEDS: MAGNESIUM OXIDE 250 MG TABLET PO SCH (20:27)
--- NOTE | 2020-11-13 21:14 | NUR ---
Received pt resting in bed. AAO x4. No acute distress noted. Denies pain/ discomfort. Due meds given as ordered. Snacks given. Blood sugar 122, for monitoring only, no sliding scale. Assisted pt to the bathroom using walker. Air mattress in place. No s/s of infection on surgical site. KETURAH midline, patent and intact. Safety measures maintained. Call light and personal items within reach. Will continue to monitor.
[2020-11-14 04:42] VITALS: BP 132/49
[2020-11-14] MEDS: BLOOD SUGAR DIAGNOSTIC 1 EACH STRIP VI SCH ×4 (06:32→21:29)
--- NOTE | 2020-11-14 07:30 | NUR ---
Patient received in bed awake, alert and oriented times 4. All wound dressings are clean and intact. Pt. on room air. No sign of distress noted. KETURAH midline 18 gauge double lumen patent and flushing. Safety precautions are in place. Will continue to monitor.
[2020-11-14 08:00] VITALS: BP 150/52
[2020-11-14] MEDS: HYDROCHLOROTHIAZIDE 25 MG TABLET PO SCH (08:30)
[2020-11-14] MEDS: CYANOCOBALAMIN 100 MCG TABLET PO SCH (08:31)
[2020-11-14] MEDS: CELECOXIB 200 MG CAPSULE PO SCH ×2 (08:31→21:28)
[2020-11-14] MEDS: OMEGA-3 FATTY ACIDS/FISH OIL CAPSULE PO SCH (08:32)
[2020-11-14] MEDS: METFORMIN HCL 500 MG TABLET PO SCH (08:32)
[2020-11-14] MEDS: ZINC SULFATE 220 MG CAPSULE PO SCH (08:32)
[2020-11-14] MEDS: FOLIC ACID 1 MG TABLET PO SCH (08:32)
[2020-11-14] MEDS: ASCORBIC ACID 500 MG TABLET PO SCH (08:32)
[2020-11-14] MEDS: GLIMEPIRIDE 2 MG TABLET PO SCH (08:32)
[2020-11-14] MEDS: AMLODIPINE 10 MG TABLET PO SCH (08:32)
[2020-11-14] MEDS: ANASTROZOLE 1 MG TABLET PO SCH (08:33)
[2020-11-14] MEDS: VITAMIN B COMPLEX 1 TABLET PO SCH (08:36)
[2020-11-14] MEDS: VALSARTAN 160 MG TABLET PO SCH (08:45)
[2020-11-14] MEDS: LIDOCAINE 5% PATCH TD SCH (08:45)
[2020-11-14] MEDS: SENNOSIDES/DOCUSATE SODIUM TABLET PO SCH ×2 (08:45→21:28)
[2020-11-14 16:15] VITALS: BP 104/65
--- NOTE | 2020-11-14 18:26 | NUR ---
Pt. refused dressing change. Says she doesn't think she needs it. Will endorse to oncoming nurse.
--- NOTE | 2020-11-14 18:38 | NUR ---
Patient resting in bed. She does complain of feeling fatigued. All vital signs are within normal limits. Medications given as ordered. Safety precautions are in place. Will endorse to oncoming shift.
[2020-11-14 20:33] VITALS: BP 125/48
--- NOTE | 2020-11-14 21:13 | NUR ---
Patient received in bed awake, alert and oriented times 4. At 1999 noted temp 100, patient said she will hydrate herself, do not need cooling measures, at 2029 checked temperature 98.2 will continue monitoring, she does not have any discomfort, All due medications administered as per MD ordered, All wound dressings are clean and intact. Pt. on room air. No sign of distress noted. KETURAH midline 18 gauge double lumen patent, intact. Accu-check done BS 140mg/dl no sliding scale, Safety precautions are in place. Will continue to monitor.
[2020-11-14] MEDS: MAGNESIUM OXIDE 250 MG TABLET PO SCH (21:28)
--- NOTE | 2020-11-14 23:00 | NUR ---
Patient resting in bed V/S stable no acute distress or further episode of elevated temperature, noted appears adequately hydrated , assisted patient to bedside commode. voided with no discomfort. safety precautions observed all time. Call light with in reach. Will continue monitoring.
[2020-11-15 05:20] VITALS: BP 115/55
--- NOTE | 2020-11-15 05:51 | NUR ---
Patient slept well no further complication remain afebrile, Assist patient to bed side commode for voiding x 2, assisted back to bed with no acute distress, refused for dressing change, dressing intact, will endorse to am shift accordingly. continue with current plan of care.
[2020-11-15] MEDS: BLOOD SUGAR DIAGNOSTIC 1 EACH STRIP VI SCH ×4 (06:45→20:36)
--- NOTE | 2020-11-15 07:30 | NUR ---
Patient received in bed awake, alert and oriented times 4. All wound dressings are clean and intact. Pt. on room air. Pt. has had a temperature of over a 100 overnight, she says she refused antipyretic or cooling measures because she was cold. She does report that she hydrated and her temp dropped eventually to 98.2. Will report to the hospitalist this morning. No sign of distress noted. KETURAH midline 18 gauge double lumen patent and flushing. Safety precautions are in place. Will continue to monitor.
[2020-11-15 08:00] VITALS: BP 131/54
[2020-11-15] MEDS: METFORMIN HCL 500 MG TABLET PO SCH (08:52)
[2020-11-15] MEDS: VITAMIN B COMPLEX 1 TABLET PO SCH (08:53)
[2020-11-15] MEDS: ANASTROZOLE 1 MG TABLET PO SCH (08:53)
[2020-11-15] MEDS: OMEGA-3 FATTY ACIDS/FISH OIL CAPSULE PO SCH (08:53)
[2020-11-15] MEDS: ZINC SULFATE 220 MG CAPSULE PO SCH (08:53)
[2020-11-15] MEDS: GLIMEPIRIDE 2 MG TABLET PO SCH (08:53)
[2020-11-15] MEDS: CELECOXIB 200 MG CAPSULE PO SCH ×2 (08:53→20:35)
[2020-11-15] MEDS: FOLIC ACID 1 MG TABLET PO SCH (08:54)
[2020-11-15] MEDS: CYANOCOBALAMIN 100 MCG TABLET PO SCH (08:54)
[2020-11-15] MEDS: ASCORBIC ACID 500 MG TABLET PO SCH (08:54)
[2020-11-15] MEDS: HYDROCHLOROTHIAZIDE 25 MG TABLET PO SCH (08:59)
[2020-11-15] MEDS: LIDOCAINE 5% PATCH TD SCH (09:00)
[2020-11-15] MEDS: AMLODIPINE 10 MG TABLET PO SCH (09:00)
[2020-11-15] MEDS: VALSARTAN 160 MG TABLET PO SCH (09:00)
[2020-11-15] MEDS: SENNOSIDES/DOCUSATE SODIUM TABLET PO SCH ×2 (09:00→21:00)
[2020-11-15 14:00] VITALS: BP 126/67
[2020-11-15 17:26] LABS: *BILIRUBIN,URIN NEGATIVE (NEGATIVE); *BLOOD, URINE 1+ (NEGATIVE); *CLARITY,URINE SLIGHTLY CLOUDY (CLEAR); *COLOR,URINE YELLOW (YELLOW); *KETONES,URINE NEGATIVE (NEGATIVE); *UROBILINOGEN,URINE 0.2 E.U./dl (NORMAL); LEUKOCYTE ESTERASE ,URINE 2+ (NEGATIVE); NITRITE, URINE POSITIVE (NEGATIVE); PH,URINE 5.5 (5.0-8.0); UGLUCOSE NEGATIVE (NEGATIVE)
--- NOTE | 2020-11-15 17:41 | NUR ---
Patient is currently having dinner. Will continue to monitor.
--- NOTE | 2020-11-15 19:20 | NUR ---
Patient resting in bed. Patient is positive of UTI. order for Macrobid noted on the eMAR All vital signs are within normal limits. Medications given as ordered. Dressing change completed. Safety precautions are in place. Will endorse to oncoming shift.
--- NOTE | 2020-11-15 19:42 | NUR ---
Received patient alert oriented x 4 at room air no acute distress noted, watching TV in her her room all needs anticipated. Appears adequately hydrated, encouraged fluids as tolerated, safety precautions observed all time, call light with in reach.
[2020-11-15] MEDS: MAGNESIUM OXIDE 250 MG TABLET PO SCH (20:35)
[2020-11-15] MEDS: NITROFURANTOIN/NITROFURAN MAC 100 MG CAPSULE PO SCH (20:35)
[2020-11-15 20:58] VITALS: BP 123/50
[2020-11-15 22:08] LABS: BACTERIA,URINE MANY /HPF (NONE SEEN); MUCUS,URINE FEW /LPF (0-FEW); SQUAMOUS EPITHELIAL CELL,UR MODERATE /HPF (NONE SEEN); URINE AMORPHOUS URATE FEW /HPF; WBC,URINE 80-100 /HPF (0-3)
--- NOTE | 2020-11-16 00:34 | NUR ---
Patient sleeping intermittently assisted patient to bed side commode X2 voided with no discomfort, Assisted back to bed, early in shift noted temp 99 offer patient cooling measures patient refused "stating makes her feel more chill" patient hydrating herself, patient remain asymptomatic, no c/o pain or discomfort, on PO ATB Macrobid 100 mg positive for UTI no adverse reaction noted encouraged fluids as tolerated. All needs anticipated, safety measures observed all time. Call light with in reach.
[2020-11-16 04:56] VITALS: BP 137/62
--- NOTE | 2020-11-16 04:59 | NUR ---
Patient sleeping intermittently throughout night alert and oriented times 4, wound dressings done kept clean and intact. on room air. Patient has low grade temperature of over a 99 to 99.4 overnight, she has been refusing antipyretic and cooling measures because she feels cold. patient hydrating herself, assisted to bed side commode voided x 5, appears adequately hydrated remain asymptomatic no acute pain or no sign of distress noted, continue offering cooling measures and PRN antipyretic meds patient refused risk and benefits discussed. Patient aware. KETURAH midline 18 gauge double lumen patent and flushing. Safety precautions are in place. Will continue to monitor.
[2020-11-16 06:08] LABS: BASOPHILS % (AUTO) 0.2 % (0.0-2.0); EOSINOPHILS # (AUTO) 0.1 K/uL (0.0-0.7); EOSINOPHILS % (AUTO) 0.5 % (0.0-7.0); HEMATOCRIT 30.2 % (31.2-41.9); HEMOGLOBIN 10.1 g/dL (10.9-14.3); LYMPHOCYTES # (AUTO) 1.1 K/uL (20.0-40.0); LYMPHOCYTES % (AUTO) 6.6 % (20.5-51.5); MEAN CORPUSCULAR HEMOGLOBIN 27.8 uug (24.7-32.8); MEAN CORPUSCULAR HGB CONC 33 g/dL (32.3-35.6); MONOCYTES # (AUTO) 1.1 K/uL (2.0-10.0); MONOCYTES % (AUTO) 6.7 % (0.0-11.0); NEUTROPHILS # (AUTO) 14.4 K/uL (1.8-8.9); PLATELET COUNT (AUTO) 442 K/uL (179-408); RED BLOOD CELL COUNT(AUTO) 3.64 MIL/uL (3.63-4.92); WHITE BLOOD COUNT (AUTO) 16.7 K/uL (3.8-11.8)
[2020-11-16 06:24] LABS: POTASSIUM 3.7 mmol/L (3.5-5.1)
[2020-11-16] MEDS: BLOOD SUGAR DIAGNOSTIC 1 EACH STRIP VI SCH ×4 (06:31→21:12)
[2020-11-16 07:53] VITALS: BP 131/61
[2020-11-16] MEDS: HYDROCHLOROTHIAZIDE 25 MG TABLET PO SCH (08:21)
[2020-11-16] MEDS: VALSARTAN 160 MG TABLET PO SCH ×2 (08:22→09:00)
[2020-11-16] MEDS: ZINC SULFATE 220 MG CAPSULE PO SCH (08:22)
[2020-11-16] MEDS: FOLIC ACID 1 MG TABLET PO SCH (08:23)
[2020-11-16] MEDS: METFORMIN HCL 500 MG TABLET PO SCH (08:23)
[2020-11-16] MEDS: ASCORBIC ACID 500 MG TABLET PO SCH (08:23)
[2020-11-16] MEDS: OMEGA-3 FATTY ACIDS/FISH OIL CAPSULE PO SCH (08:23)
[2020-11-16] MEDS: NITROFURANTOIN/NITROFURAN MAC 100 MG CAPSULE PO SCH ×2 (08:24→21:08)
[2020-11-16] MEDS: GLIMEPIRIDE 2 MG TABLET PO SCH (08:24)
[2020-11-16] MEDS: AMLODIPINE 10 MG TABLET PO SCH (08:24)
[2020-11-16] MEDS: SENNOSIDES/DOCUSATE SODIUM TABLET PO SCH ×3 (08:24→21:08)
[2020-11-16] MEDS: VITAMIN B COMPLEX 1 TABLET PO SCH (08:25)
[2020-11-16] MEDS: ANASTROZOLE 1 MG TABLET PO SCH (08:25)
[2020-11-16] MEDS: CYANOCOBALAMIN 100 MCG TABLET PO SCH (08:26)
[2020-11-16] MEDS: LIDOCAINE 5% PATCH TD SCH (08:26)
[2020-11-16] MEDS: CELECOXIB 200 MG CAPSULE PO SCH ×2 (08:32→21:08)
--- NOTE | 2020-11-16 14:46 | NUR ---
left message to dr pickering for blood culture result, spoke to daria from the office
[2020-11-16 14:57] VITALS: BP 112/44
--- NOTE | 2020-11-16 15:05 | NUR ---
patient is alert, oriented x4, no sob, resp even nonlabored, skin warm and dry to touch, noted with more tired today, however able to participate in PT, OT services and tolerated well, able to ambulate with fww with assist. no other changes noted
--- NOTE | 2020-11-16 15:12 | NUR ---
blood culture result reported to dr pickering ID, per dr pickering monitor the patient for now, dr pickering made aware about low grade temp, continue to monitor closely for any worsening symptoms
[2020-11-16 20:02] VITALS: BP 121/51
[2020-11-16] MEDS: MAGNESIUM OXIDE 250 MG TABLET PO SCH (21:08)
--- NOTE | 2020-11-17 03:00 | NUR ---
In bed, sound asleep during initial rounds. No s/s of respiratory distress noted. No s/s of any pain/discomforts. Safety measures and fall prevention maintained. Continue care as planned.
[2020-11-17 04:30] VITALS: BP 115/45
[2020-11-17] MEDS: BLOOD SUGAR DIAGNOSTIC 1 EACH STRIP VI SCH ×4 (06:16→20:36)
--- NOTE | 2020-11-17 06:34 | NUR ---
Shift End Report: VS stable. BS WNL. Slept well. No complaint presented. All needs attended and met. No significant event reported. Continue current rehab plan of care.
--- NOTE | 2020-11-17 07:30 | NUR ---
Received awake and watching tv. No resp distress. Bed low and locked. Patient is comfortable. Will continue to monitor.
[2020-11-17 07:54] VITALS: BP 146/63
[2020-11-17] MEDS: OMEGA-3 FATTY ACIDS/FISH OIL CAPSULE PO SCH (08:50)
[2020-11-17] MEDS: SENNOSIDES/DOCUSATE SODIUM TABLET PO SCH ×2 (08:50→20:32)
[2020-11-17] MEDS: CELECOXIB 200 MG CAPSULE PO SCH ×2 (08:51→20:32)
[2020-11-17] MEDS: METFORMIN HCL 500 MG TABLET PO SCH (08:51)
[2020-11-17] MEDS: ASCORBIC ACID 500 MG TABLET PO SCH (08:51)
[2020-11-17] MEDS: HYDROCHLOROTHIAZIDE 25 MG TABLET PO SCH (08:51)
[2020-11-17] MEDS: FOLIC ACID 1 MG TABLET PO SCH (08:51)
[2020-11-17] MEDS: AMLODIPINE 10 MG TABLET PO SCH (08:52)
[2020-11-17] MEDS: ZINC SULFATE 220 MG CAPSULE PO SCH (08:52)
[2020-11-17] MEDS: GLIMEPIRIDE 2 MG TABLET PO SCH (08:52)
[2020-11-17] MEDS: CYANOCOBALAMIN 100 MCG TABLET PO SCH (08:52)
[2020-11-17] MEDS: VALSARTAN 160 MG TABLET PO SCH (08:52)
[2020-11-17] MEDS: NITROFURANTOIN/NITROFURAN MAC 100 MG CAPSULE PO SCH (08:52)
[2020-11-17] MEDS: ANASTROZOLE 1 MG TABLET PO SCH (08:54)
[2020-11-17] MEDS: VITAMIN B COMPLEX 1 TABLET PO SCH (08:55)
[2020-11-17] MEDS: LIDOCAINE 5% PATCH TD SCH (09:00)
[2020-11-17] MEDS ORDERED: CEFEPIME HCL 2 G in IV DEXTROSE 5% 100 ML IV SCH (13:00)
[2020-11-17] MEDS ORDERED: CEFEPIME HCL 1 G in IV DEXTROSE 5% 50 ML IV SCH (14:00)
[2020-11-17] MEDS: CEFEPIME HCL 2 G in IV DEXTROSE 5% 100 ML IV SCH (14:55)
[2020-11-17 15:01] VITALS: BP 146/56
[2020-11-17] MEDS: MAGNESIUM OXIDE 250 MG TABLET PO SCH (20:32)
[2020-11-17 20:42] VITALS: BP 116/47
[2020-11-17] MEDS: ACIDOPHILUS/BULGARICUS CHEW TAB PO SCH (23:01)
[2020-11-18] MEDS: CEFEPIME HCL 2 G in IV DEXTROSE 5% 100 ML IV SCH ×2 (02:19→14:59)
--- NOTE | 2020-11-18 03:14 | NUR ---
AAOx4 Needs attended. Dressing intact. Compliant with meds. Tolerated po meds. Accucheck @ 2100 was 218. Refused coverage. Will monitor patient's blood sugar in am. IV ABT given as scheduled. Tolerated well. No ill effects noted. OOB to the BR with walker. Voiding well. No BM noted this shift.
[2020-11-18 04:05] VITALS: BP 141/68
--- NOTE | 2020-11-18 06:35 | NUR ---
End of shift notes: AAOx4 OOB to the BR with walker with assistance. Dressing intact. VSS. Needs attended. Voiding well. IV ABT given as scheduled. No acute distress noted. Will monitor patient.
[2020-11-18] MEDS: BLOOD SUGAR DIAGNOSTIC 1 EACH STRIP VI SCH ×4 (07:12→21:26)
[2020-11-18 08:00] VITALS: BP 117/49
[2020-11-18] MEDS: ZINC SULFATE 220 MG CAPSULE PO SCH (08:27)
[2020-11-18] MEDS: ACIDOPHILUS/BULGARICUS CHEW TAB PO SCH ×2 (08:27→20:47)
[2020-11-18] MEDS: FOLIC ACID 1 MG TABLET PO SCH (08:28)
[2020-11-18] MEDS: HYDROCHLOROTHIAZIDE 25 MG TABLET PO SCH (08:28)
[2020-11-18] MEDS: CELECOXIB 200 MG CAPSULE PO SCH ×2 (08:28→20:47)
[2020-11-18] MEDS: OMEGA-3 FATTY ACIDS/FISH OIL CAPSULE PO SCH (08:28)
[2020-11-18] MEDS: METFORMIN HCL 500 MG TABLET PO SCH (08:28)
[2020-11-18] MEDS: AMLODIPINE 10 MG TABLET PO SCH (08:28)
[2020-11-18] MEDS: ASCORBIC ACID 500 MG TABLET PO SCH (08:28)
[2020-11-18] MEDS: GLIMEPIRIDE 2 MG TABLET PO SCH (08:29)
[2020-11-18] MEDS: CYANOCOBALAMIN 100 MCG TABLET PO SCH (08:29)
[2020-11-18] MEDS: VALSARTAN 160 MG TABLET PO SCH (08:30)
[2020-11-18] MEDS: ANASTROZOLE 1 MG TABLET PO SCH (08:32)
[2020-11-18] MEDS: VITAMIN B COMPLEX 1 TABLET PO SCH (08:32)
[2020-11-18] MEDS: SENNOSIDES/DOCUSATE SODIUM TABLET PO SCH ×2 (08:33→21:00)
[2020-11-18] MEDS: LIDOCAINE 5% PATCH TD SCH (08:47)
[2020-11-18 10:07] LABS: BASOPHILS % (AUTO) 0.2 % (0.0-2.0); EOSINOPHILS % (AUTO) 0.2 % (0.0-7.0); HEMOGLOBIN 9.7 g/dL (10.9-14.3); LYMPHOCYTES # (AUTO) 1.2 K/uL (20.0-40.0); LYMPHOCYTES % (AUTO) 6.4 % (20.5-51.5); MEAN CORPUSCULAR HEMOGLOBIN 27.3 uug (24.7-32.8); MEAN CORPUSCULAR HGB CONC 32 g/dL (32.3-35.6); MEAN CORPUSCULAR VOLUME 84.1 fL (75.5-95.3); MONOCYTES # (AUTO) 1.3 K/uL (2.0-10.0); MONOCYTES % (AUTO) 6.9 % (0.0-11.0); NEUTROPHILS # (AUTO) 16.2 K/uL (1.8-8.9); NEUTROPHILS % (AUTO) 86.3 % (38.5-71.5); PLATELET COUNT (AUTO) 452 K/uL (179-408); RED BLOOD CELL COUNT(AUTO) 3.56 MIL/uL (3.63-4.92); WHITE BLOOD COUNT (AUTO) 18.8 K/uL (3.8-11.8)
--- NOTE | 2020-11-18 11:04 | NUR ---
wound care provided to right buttock wound and to right groin wound, as ordered, both wounds are very clean, no drainage noted, no malodorous noted, wound bed is pink, no slough, patient's questions answered about wound.
[2020-11-18 16:00] VITALS: BP 100/44
--- NOTE | 2020-11-18 16:16 | NUR ---
patient is alert, oriented x4, verbally responsive, no sob, resp even nonlabored, skin warm and dry to touch, continue on cefepime, patient stated she feels chills and shakiness, however vitals are WNL DR Vogel made aware, patient seems to be very anxious, encouraged to express feelings, patient stated she is anxious but does not want any medication to relieve the anxiety, stayed with patient to provide comfort and emotional support. continue to monitor
[2020-11-18 20:00] VITALS: BP 126/58
[2020-11-18] MEDS: MAGNESIUM OXIDE 250 MG TABLET PO SCH (20:47)
[2020-11-18] MEDS ORDERED: CEFEPIME HCL 2 G in IV DEXTROSE 5% 100 ML IV SCH (21:00)
[2020-11-18] MEDS ORDERED: MEROPENEM 1GM/NS 100ML IVPB **ER PYXIS ONLY IV ONE (21:04)
[2020-11-18] MEDS ORDERED: MEROPENEM 1 G VIAL IV ONE (21:05)
[2020-11-18] MEDS: MEROPENEM 1 G in IV NORMAL SALINE 100 ML IV SCH ×2 (21:13→21:36)
--- NOTE | 2020-11-18 21:28 | NUR ---
Patient AAOx4 Needs attended. Dressing intact. Compliant with meds and regimen tolerated po medication. Accucheck @ 2100 was 171 Refused coverage. Will monitor patient's blood sugar in am. IV ABT given as scheduled. Tolerated well. No adverse reaction noted. OOB to the BR with walker. Voiding well.No BM noted this shift. dressing intact.
[2020-11-18] MEDS: NITROFURANTOIN/NITROFURAN MAC 100 MG CAPSULE PO SCH (22:46)
[2020-11-19] MEDS ORDERED: MEROPENEM 1 G VIAL IV ONE (00:15)
[2020-11-19 04:00] VITALS: BP 110/58
--- NOTE | 2020-11-19 04:42 | NUR ---
Patient slept well through out night. Patient utilizes with FWW for ambulation with supervision walk to the bathroom and voided with no difficulty. Assisted back to bed. All needs anticipated. will endorse accordingly to AM Shift.
[2020-11-19] MEDS: MEROPENEM 1 G in IV NORMAL SALINE 100 ML IV SCH (05:51)
[2020-11-19] MEDS: BLOOD SUGAR DIAGNOSTIC 1 EACH STRIP VI SCH ×4 (06:39→21:19)
[2020-11-19 08:28] VITALS: BP 101/55
[2020-11-19] MEDS: SENNOSIDES/DOCUSATE SODIUM TABLET PO SCH ×2 (09:00→21:00)
[2020-11-19] MEDS: AMLODIPINE 10 MG TABLET PO SCH (09:00)
[2020-11-19] MEDS: LIDOCAINE 5% PATCH TD SCH (09:00)
[2020-11-19] MEDS: NITROFURANTOIN/NITROFURAN MAC 100 MG CAPSULE PO SCH ×2 (09:03→21:20)
[2020-11-19] MEDS: OMEGA-3 FATTY ACIDS/FISH OIL CAPSULE PO SCH (09:03)
[2020-11-19] MEDS: VITAMIN B COMPLEX 1 TABLET PO SCH (09:03)
[2020-11-19] MEDS: FOLIC ACID 1 MG TABLET PO SCH (09:04)
[2020-11-19] MEDS: ACIDOPHILUS/BULGARICUS CHEW TAB PO SCH ×2 (09:04→21:20)
[2020-11-19] MEDS: ZINC SULFATE 220 MG CAPSULE PO SCH (09:05)
[2020-11-19] MEDS: METFORMIN HCL 500 MG TABLET PO SCH (09:06)
[2020-11-19] MEDS: ASCORBIC ACID 500 MG TABLET PO SCH (09:06)
[2020-11-19] MEDS: GLIMEPIRIDE 2 MG TABLET PO SCH (09:07)
[2020-11-19] MEDS: HYDROCHLOROTHIAZIDE 25 MG TABLET PO SCH (09:08)
[2020-11-19] MEDS: CELECOXIB 200 MG CAPSULE PO SCH ×2 (09:29→21:20)
[2020-11-19] MEDS: CYANOCOBALAMIN 100 MCG TABLET PO SCH (09:30)
[2020-11-19] MEDS: ANASTROZOLE 1 MG TABLET PO SCH (09:34)
[2020-11-19] MEDS: VALSARTAN 160 MG TABLET PO SCH (09:35)
[2020-11-19 11:21] LABS: BASOPHILS % (AUTO) 0.1 % (0.0-2.0); BILIRUBIN,TOTAL 0.2 mg/dL (0.2-1.0); CREATININE 1.3 mg/dL (0.6-1.3); EOSINOPHILS # (AUTO) 0.1 K/uL (0.0-0.7); EOSINOPHILS % (AUTO) 0.6 % (0.0-7.0); HEMATOCRIT 28.3 % (31.2-41.9); HEMOGLOBIN 9.4 g/dL (10.9-14.3); LYMPHOCYTES # (AUTO) 1.6 K/uL (20.0-40.0); LYMPHOCYTES % (AUTO) 9.1 % (20.5-51.5); MEAN CORPUSCULAR HEMOGLOBIN 27.4 uug (24.7-32.8); MEAN CORPUSCULAR HGB CONC 33 g/dL (32.3-35.6); MEAN CORPUSCULAR VOLUME 82.4 fL (75.5-95.3); MONOCYTES # (AUTO) 1.4 K/uL (2.0-10.0); MONOCYTES % (AUTO) 7.5 % (0.0-11.0); NEUTROPHILS % (AUTO) 82.7 % (38.5-71.5); PLATELET COUNT (AUTO) 417 K/uL (179-408); POTASSIUM 3.9 mmol/L (3.5-5.1); RED BLOOD CELL COUNT(AUTO) 3.43 MIL/uL (3.63-4.92); TOTAL PROTEIN, SERUM 6.6 g/dL (6.4-8.2); WHITE BLOOD COUNT (AUTO) 18.2 K/uL (3.8-11.8)
[2020-11-19] MEDS: CEFEPIME HCL 2 G in IV DEXTROSE 5% 100 ML IV SCH (13:05)
[2020-11-19 16:00] VITALS: BP 110/47
--- NOTE | 2020-11-19 19:26 | NUR ---
patient stated her portacath site at right upper chest is swollen and red, dr bello aware, per dr bello contact ID
--- NOTE | 2020-11-19 19:32 | NUR ---
paged dr pickering regarding patient mary cath site
--- NOTE | 2020-11-19 19:36 | NUR ---
spoke to dr dunn, regarding [facility], per dr dunn continue to monitor tonight, will see patient tomorrow. patient is alert, oriented x4, able to ambulate to bathroom with standby assist, no fever, no chills noted during day, tolerated meals well, continue to monitor closely, current vitals are 109/53, pulse 92, temp 98.9, 94% o2 saturation at room air, endorsed to next shift to monitor closely, and call dr dunn if there is any change in vitals or patient condition.
[2020-11-19 20:00] VITALS: BP 109/53
[2020-11-19] MEDS: MAGNESIUM OXIDE 250 MG TABLET PO SCH (21:20)
[2020-11-19] MEDS ORDERED: MEROPENEM 1 G in IV NORMAL SALINE 100 ML IV SCH (22:00)
[2020-11-20] MEDS: CEFEPIME HCL 2 G in IV DEXTROSE 5% 100 ML IV SCH ×2 (00:58→12:08)
[2020-11-20 04:00] VITALS: BP 121/48
[2020-11-20 06:34] LABS: BASOPHILS % (AUTO) 0.2 % (0.0-2.0); EOSINOPHILS # (AUTO) 0.2 K/uL (0.0-0.7); EOSINOPHILS % (AUTO) 1.8 % (0.0-7.0); HEMATOCRIT 27.3 % (31.2-41.9); HEMOGLOBIN 9.1 g/dL (10.9-14.3); LYMPHOCYTES # (AUTO) 2.1 K/uL (20.0-40.0); LYMPHOCYTES % (AUTO) 15.5 % (20.5-51.5); MEAN CORPUSCULAR HEMOGLOBIN 27.8 uug (24.7-32.8); MEAN CORPUSCULAR HGB CONC 33 g/dL (32.3-35.6); MEAN CORPUSCULAR VOLUME 83.4 fL (75.5-95.3); MONOCYTES # (AUTO) 1.7 K/uL (2.0-10.0); NEUTROPHILS # (AUTO) 9.2 K/uL (1.8-8.9); NEUTROPHILS % (AUTO) 69.5 % (38.5-71.5); PLATELET COUNT (AUTO) 416 K/uL (179-408); RED BLOOD CELL COUNT(AUTO) 3.27 MIL/uL (3.63-4.92); WHITE BLOOD COUNT (AUTO) 13.3 K/uL (3.8-11.8)
[2020-11-20 06:46] LABS: BILIRUBIN,TOTAL 0.2 mg/dL (0.2-1.0); CREATININE 1.2 mg/dL (0.6-1.3); POTASSIUM 4.7 mmol/L (3.5-5.1); TOTAL PROTEIN, SERUM 6.5 g/dL (6.4-8.2)
--- NOTE | 2020-11-20 07:02 | NUR ---
Patient awake alert resting in bed able to let her needs known to staff. Patient concern about her [id number] on her right upper chest which is red. DR. Magallanes notified by Am shift and monitoring patient for any complication or discomfort VITAL SIGNS STABLE no acute distress noted patient remain stable though out shift. Accu check done at 0630 am noted 67 given patient 1 cup orange juice check again blood sugar at 7.00 AM accu check reading 92mg/dl. no acute stress. noted endorse AM shift accordingly. will continue current plan of care.
[2020-11-20 08:00] VITALS: BP 123/55
[2020-11-20] MEDS: SENNOSIDES/DOCUSATE SODIUM TABLET PO SCH ×2 (09:00→20:58)
[2020-11-20] MEDS: AMLODIPINE 10 MG TABLET PO SCH (09:00)
[2020-11-20] MEDS: VALSARTAN 160 MG TABLET PO SCH (09:00)
[2020-11-20] MEDS: ACIDOPHILUS/BULGARICUS CHEW TAB PO SCH ×2 (11:46→20:56)
[2020-11-20] MEDS: BLOOD SUGAR DIAGNOSTIC 1 EACH STRIP VI SCH ×4 (11:46→21:01)
[2020-11-20] MEDS: NITROFURANTOIN/NITROFURAN MAC 100 MG CAPSULE PO SCH ×2 (11:47→20:56)
[2020-11-20] MEDS: METFORMIN HCL 500 MG TABLET PO SCH (11:47)
[2020-11-20] MEDS: CYANOCOBALAMIN 100 MCG TABLET PO SCH (11:48)
[2020-11-20] MEDS: ASCORBIC ACID 500 MG TABLET PO SCH (11:48)
[2020-11-20] MEDS: GLIMEPIRIDE 2 MG TABLET PO SCH (11:49)
[2020-11-20] MEDS: ZINC SULFATE 220 MG CAPSULE PO SCH (11:49)
[2020-11-20] MEDS: FOLIC ACID 1 MG TABLET PO SCH (11:49)
[2020-11-20] MEDS: OMEGA-3 FATTY ACIDS/FISH OIL CAPSULE PO SCH (11:50)
[2020-11-20] MEDS: VITAMIN B COMPLEX 1 TABLET PO SCH (11:51)
[2020-11-20] MEDS: ANASTROZOLE 1 MG TABLET PO SCH (11:51)
[2020-11-20] MEDS: CELECOXIB 200 MG CAPSULE PO SCH ×2 (11:52→20:56)
[2020-11-20] MEDS: HYDROCHLOROTHIAZIDE 25 MG TABLET PO SCH (11:52)
[2020-11-20 13:38] LABS: NEUTROPHILS % (MANUAL) 72 % (42-75)
[2020-11-20 13:39] LABS: EOSINOPHILS % (MANUAL) 2 % (0-8); LYMPHOCYTES % (MANUAL) 17 % (20-40); MONOCYTES % (MANUAL) 9 % (2-10)
[2020-11-20 15:41] VITALS: BP 117/54
[2020-11-20 19:52] VITALS: BP 129/56
--- NOTE | 2020-11-20 20:00 | NUR ---
AAOx4 Resting in bed upon initial rounds. Compliant with meds. Ambulates to the BR with walker with supervision. Voiding well. BM noted this shift. Dressing intact to buttocks/groin. Denies any pain nor any discomfort. Refused senokot. On IV ABT given as scheduled via right upper PICC. Tolerated well. No ill effects noted. VSS. Accucheck @ 2100 was 79. Snacks given. Will monitor patient's blood sugar.
[2020-11-20] MEDS: MAGNESIUM OXIDE 250 MG TABLET PO SCH (20:58)
[2020-11-21] MEDS: CEFEPIME HCL 2 G in IV DEXTROSE 5% 100 ML IV SCH ×2 (00:26→12:38)
[2020-11-21 04:40] VITALS: BP 140/53
[2020-11-21 06:20] LABS: BASOPHILS % (AUTO) 0.2 % (0.0-2.0); EOSINOPHILS # (AUTO) 0.2 K/uL (0.0-0.7); EOSINOPHILS % (AUTO) 1.6 % (0.0-7.0); HEMATOCRIT 28.1 % (31.2-41.9); HEMOGLOBIN 9.2 g/dL (10.9-14.3); LYMPHOCYTES # (AUTO) 2.1 K/uL (20.0-40.0); LYMPHOCYTES % (AUTO) 16.4 % (20.5-51.5); MEAN CORPUSCULAR HEMOGLOBIN 27.3 uug (24.7-32.8); MEAN CORPUSCULAR HGB CONC 33 g/dL (32.3-35.6); MEAN CORPUSCULAR VOLUME 83.2 fL (75.5-95.3); MONOCYTES # (AUTO) 1.4 K/uL (2.0-10.0); NEUTROPHILS % (AUTO) 70.8 % (38.5-71.5); PLATELET COUNT (AUTO) 508 K/uL (179-408); RED BLOOD CELL COUNT(AUTO) 3.38 MIL/uL (3.63-4.92); WHITE BLOOD COUNT (AUTO) 12.7 K/uL (3.8-11.8)
[2020-11-21] MEDS: BLOOD SUGAR DIAGNOSTIC 1 EACH STRIP VI SCH ×4 (06:31→20:13)
--- NOTE | 2020-11-21 06:35 | NUR ---
End of shift notes: Quiet night. Slept well throughout the night. VSS. Accucheck this am was 70. OJ with sugar given. Will monitor patient for hypoglycemic episodes. Needs attended. Voiding freely.
[2020-11-21 08:00] VITALS: BP 155/65
[2020-11-21] MEDS: AMLODIPINE 10 MG TABLET PO SCH (08:30)
[2020-11-21] MEDS: CYANOCOBALAMIN 100 MCG TABLET PO SCH (08:30)
[2020-11-21] MEDS: CELECOXIB 200 MG CAPSULE PO SCH ×2 (08:31→20:06)
[2020-11-21] MEDS: ASCORBIC ACID 500 MG TABLET PO SCH (08:31)
[2020-11-21] MEDS: VITAMIN B COMPLEX 1 TABLET PO SCH (08:33)
[2020-11-21] MEDS: ANASTROZOLE 1 MG TABLET PO SCH (08:33)
[2020-11-21] MEDS: NITROFURANTOIN/NITROFURAN MAC 100 MG CAPSULE PO SCH ×2 (08:38→20:05)
[2020-11-21] MEDS: ZINC SULFATE 220 MG CAPSULE PO SCH (08:38)
[2020-11-21] MEDS: FOLIC ACID 1 MG TABLET PO SCH (08:39)
[2020-11-21] MEDS: VALSARTAN 160 MG TABLET PO SCH (08:39)
[2020-11-21] MEDS: METFORMIN HCL 500 MG TABLET PO SCH (08:40)
[2020-11-21] MEDS: ACIDOPHILUS/BULGARICUS CHEW TAB PO SCH ×2 (08:40→20:06)
[2020-11-21] MEDS: GLIMEPIRIDE 2 MG TABLET PO SCH (08:40)
[2020-11-21] MEDS: OMEGA-3 FATTY ACIDS/FISH OIL CAPSULE PO SCH (08:41)
[2020-11-21] MEDS: HYDROCHLOROTHIAZIDE 25 MG TABLET PO SCH (08:41)
[2020-11-21] MEDS: SENNOSIDES/DOCUSATE SODIUM TABLET PO SCH ×2 (08:42→20:12)
[2020-11-21 16:07] VITALS: BP 114/49
--- NOTE | 2020-11-21 18:54 | NUR ---
Patient continue blood sugar monitoring. no signs of hypo/hyperglycemia noted. not in distress. Patient participates with therapy. no c/o of pain/discomfort noted. Patient continue ATB treatment for + blood culture pseudomonas. no adverse reaction noted. will continue monitor
[2020-11-21 19:39] VITALS: BP 139/53
[2020-11-21] MEDS: MAGNESIUM OXIDE 250 MG TABLET PO SCH (20:06)
--- NOTE | 2020-11-21 20:34 | NUR ---
Awake alert and oriented x4 no apparent distress noted. VSS. Blood sugar @ 2100 148. Compliant with meds and care. RUE PICC flush and patent, on IV ABT given as schedule (+) blood culture for pseudomonas. No adverse effect noted. OOB with walker to the BR. Voiding well. BM this shift. Refused senokot. Denies any pain nor any discomfort. Will monitor patient.
[2020-11-22] MEDS: CEFEPIME HCL 2 G in IV DEXTROSE 5% 100 ML IV SCH ×2 (00:50→13:31)
[2020-11-22 04:20] VITALS: BP 124/57
[2020-11-22] MEDS: BLOOD SUGAR DIAGNOSTIC 1 EACH STRIP VI SCH ×4 (06:31→20:09)
--- NOTE | 2020-11-22 06:50 | NUR ---
End of shift notes: Slept at long intervals. VSS Needs attended. Voiding well. OOB to the BR with walker. No acute distress noted.
[2020-11-22 08:00] VITALS: BP 134/53
[2020-11-22] MEDS: ASCORBIC ACID 500 MG TABLET PO SCH (08:57)
[2020-11-22] MEDS: FOLIC ACID 1 MG TABLET PO SCH (08:57)
[2020-11-22] MEDS: ACIDOPHILUS/BULGARICUS CHEW TAB PO SCH ×2 (08:57→20:09)
[2020-11-22] MEDS: METFORMIN HCL 500 MG TABLET PO SCH (08:58)
[2020-11-22] MEDS: HYDROCHLOROTHIAZIDE 25 MG TABLET PO SCH (09:00)
[2020-11-22] MEDS: CELECOXIB 200 MG CAPSULE PO SCH ×2 (09:00→20:09)
[2020-11-22] MEDS: VALSARTAN 160 MG TABLET PO SCH (09:00)
[2020-11-22] MEDS: SENNOSIDES/DOCUSATE SODIUM TABLET PO SCH ×2 (09:00→20:09)
[2020-11-22] MEDS: NITROFURANTOIN/NITROFURAN MAC 100 MG CAPSULE PO SCH ×2 (09:01→20:09)
[2020-11-22] MEDS: GLIMEPIRIDE 2 MG TABLET PO SCH (09:01)
[2020-11-22] MEDS: AMLODIPINE 10 MG TABLET PO SCH (09:01)
[2020-11-22] MEDS: OMEGA-3 FATTY ACIDS/FISH OIL CAPSULE PO SCH (09:01)
[2020-11-22] MEDS: ZINC SULFATE 220 MG CAPSULE PO SCH (09:02)
[2020-11-22] MEDS: CYANOCOBALAMIN 100 MCG TABLET PO SCH (09:02)
[2020-11-22] MEDS: ANASTROZOLE 1 MG TABLET PO SCH (09:03)
[2020-11-22] MEDS: VITAMIN B COMPLEX 1 TABLET PO SCH (09:05)
[2020-11-22 16:25] VITALS: BP 120/64
[2020-11-22 20:03] VITALS: BP 122/48
[2020-11-22] MEDS: MAGNESIUM OXIDE 250 MG TABLET PO SCH (20:09)
--- NOTE | 2020-11-22 20:51 | NUR ---
Received pt resting in bed. AAO x4. No acute distress noted. Denies pain/ discomfort. Due meds given as ordered. Accucheck 175. Pt to be NPO after midnight for mary catheter removal tomorrow. Consent signed and placed in chart. KETURAH midline, patent and intact. Air mattress in place. Safety measures maintained. Call light and personal items within reach. Will continue to monitor.
[2020-11-23] MEDS: IV D5/ 0.9% NACL 1,000 ML IV PRN (00:12)
[2020-11-23] MEDS: CEFEPIME HCL 2 G in IV DEXTROSE 5% 100 ML IV SCH ×2 (00:31→13:10)
[2020-11-23 05:05] VITALS: BP 136/61
[2020-11-23] MEDS: BLOOD SUGAR DIAGNOSTIC 1 EACH STRIP VI SCH ×4 (06:39→21:57)
[2020-11-23 06:40] LABS: BASOPHILS % (AUTO) 0.2 % (0.0-2.0); EOSINOPHILS # (AUTO) 0.3 K/uL (0.0-0.7); HEMATOCRIT 28.4 % (31.2-41.9); HEMOGLOBIN 9.5 g/dL (10.9-14.3); LYMPHOCYTES # (AUTO) 2.4 K/uL (20.0-40.0); LYMPHOCYTES % (AUTO) 18.2 % (20.5-51.5); MEAN CORPUSCULAR HEMOGLOBIN 27.5 uug (24.7-32.8); MEAN CORPUSCULAR HGB CONC 33 g/dL (32.3-35.6); MEAN CORPUSCULAR VOLUME 82.4 fL (75.5-95.3); MONOCYTES # (AUTO) 1.4 K/uL (2.0-10.0); MONOCYTES % (AUTO) 10.4 % (0.0-11.0); NEUTROPHILS # (AUTO) 9.3 K/uL (1.8-8.9); NEUTROPHILS % (AUTO) 69.2 % (38.5-71.5); PLATELET COUNT (AUTO) 566 K/uL (179-408); RED BLOOD CELL COUNT(AUTO) 3.44 MIL/uL (3.63-4.92); WHITE BLOOD COUNT (AUTO) 13.4 K/uL (3.8-11.8)
[2020-11-23 07:08] LABS: BILIRUBIN,TOTAL 0.3 mg/dL (0.2-1.0); MAGNESIUM 2.3 mg/dL (1.8-2.4); PHOSPHOROUS 3.7 mg/dL (2.5-4.9); POTASSIUM 4.4 mmol/L (3.5-5.1); TOTAL PROTEIN, SERUM 6.8 g/dL (6.4-8.2)
[2020-11-23 08:00] VITALS: BP 136/56
[2020-11-23] MEDS: GLIMEPIRIDE 2 MG TABLET PO SCH ×2 (08:00→13:17)
[2020-11-23] MEDS: ACIDOPHILUS/BULGARICUS CHEW TAB PO SCH ×2 (08:26→21:51)
[2020-11-23] MEDS: NITROFURANTOIN/NITROFURAN MAC 100 MG CAPSULE PO SCH ×2 (08:26→21:52)
[2020-11-23] MEDS: ANASTROZOLE 1 MG TABLET PO SCH (08:27)
[2020-11-23] MEDS: AMLODIPINE 10 MG TABLET PO SCH (08:29)
[2020-11-23] MEDS: HYDROCHLOROTHIAZIDE 25 MG TABLET PO SCH (08:32)
[2020-11-23] MEDS: OMEGA-3 FATTY ACIDS/FISH OIL CAPSULE PO SCH ×2 (08:36→13:16)
[2020-11-23] MEDS: FOLIC ACID 1 MG TABLET PO SCH ×2 (08:36→13:17)
[2020-11-23] MEDS: VITAMIN B COMPLEX 1 TABLET PO SCH ×2 (08:36→13:16)
[2020-11-23] MEDS: CELECOXIB 200 MG CAPSULE PO SCH ×3 (08:36→21:51)
[2020-11-23] MEDS: METFORMIN HCL 500 MG TABLET PO SCH ×2 (08:36→13:17)
[2020-11-23] MEDS: VALSARTAN 160 MG TABLET PO SCH (08:36)
[2020-11-23] MEDS: SENNOSIDES/DOCUSATE SODIUM TABLET PO SCH ×2 (08:37→21:52)
[2020-11-23] MEDS: ASCORBIC ACID 500 MG TABLET PO SCH ×2 (08:37→13:18)
[2020-11-23] MEDS: ZINC SULFATE 220 MG CAPSULE PO SCH ×2 (08:37→13:18)
[2020-11-23] MEDS: CYANOCOBALAMIN 100 MCG TABLET PO SCH ×2 (08:37→13:18)
--- NOTE | 2020-11-23 08:38 | NUR ---
Received pt in bed, A&Ox4, able to verbalize needs. Pt to have Portacath removal procedure with Dr. Sparks today, pt NPO, consent signed and placed in chart. Per Dr. Sparks, hold am Metformin and Amaryl, other meds OK with sip of water. Per pt, would prefer most meds after procedure, refer to eMAR. Pt refused Diovan and Winnie-Colace today. KETURAH midline patent and intact, IVF infusing. Safety measures and fall precautions in place. Call light and belongings within reach. Will continue to monitor.
--- NOTE | 2020-11-23 10:45 | NUR ---
Pt darek, DAVIDS. Report given to ANIYA Yusuf with surgery. Pt off unit via bed @ 9863.
[2020-11-23] MEDS ORDERED: FENTANYL CITRATE 100 MCG/2 ML AMPUL ONE (11:01)
--- NOTE | 2020-11-23 12:20 | NUR ---
Report received from Roxana, assistant manager trainee from surgery. Pt returned to unit at 1215 in stable condition. VS: BP 136/64, HR 89, R 17, Temp 98.6, O2 saturation 97% on RA. Pt denies pain/discomfort at this time. No acute distress noted. New orders in place from Dr. Sparks. Call light and belongings in place. Will continue to monitor.
[2020-11-23 15:40] VITALS: BP 138/69
[2020-11-23 16:00] VITALS: BP 140/53
--- NOTE | 2020-11-23 16:00 | NUR ---
Spoke with Gilberto Boss from [facility], per Gilberto, preliminary results for Blood Culture are in. Dr. Vogel and ID IRRIGATION SERVICE TECHNICIAN Natali Torres made aware. No new orders at this time. Continue to monitor.
--- NOTE | 2020-11-23 16:30 | NUR ---
Pt reported feeling chills, shaky. VS taken, temperature of 100.6 noted. Other VS BP: 138/69, O2 97% RA, HR 107, RR 17. Tylenol and ice pack offered, pt refused both at this time. Temperature retaken, 100.2. MANAGER INTERVENTIONAL Natali Torres notified, suggested Tylenol and ice pack, medication purpose, risks, benefits, side effects discussed with pt, pt continued to refuse. Continue to monitor.
--- NOTE | 2020-11-23 17:55 | NUR ---
EOSS: Pt reports feeling "better" at this time. Temperature rechecked, now 99.3. BS 219, no insulin coverage ordered. Wound care administered per order, pt tolerated well. Instructed pt on incentive spirometry usage, pt receptive, demonstrated usage for this promotion writer. Safety measures and fall precautions maintained. Call light and belongings within reach. Will endorse care to shift mechanic nurse.
[2020-11-23] MEDS: ACETAMINOPHEN 325 MG TABLET PO PRN (18:52)
[2020-11-23 19:00] VITALS: BP 135/59
--- NOTE | 2020-11-23 19:00 | NUR ---
Pt reported "tight" and "hot" feeling. Pt alert, able to speak, crying, able to swallow water and medication. VS: BP 135/59, HR 108, O2 96% RA, RR 19, temperature 100.3. Dr. Bernstein at bedside, examined and spoke with pt. Pt agreed to take PRN Tylenol for temperature. Dr. Vogel made aware, new orders in place. Will endorse care to night baker nurse.
[2020-11-23 20:09] VITALS: BP 112/44
[2020-11-23] MEDS: MAGNESIUM OXIDE 250 MG TABLET PO SCH (21:52)
--- NOTE | 2020-11-23 22:30 | NUR ---
Received pt VSS. Reports chills and chest tightness Assessed pt and reported vitals BP 112/44 Hr 108 temp 99.2 O2 saturating @95% RA. No signs of confusion noted. Axox4, able to express needs.Sates she "has been having chills on and off for a week. Pt is refusing her next dose of antibiotic scheduled at 0100. Pt is anxious encouraged pt to express her feelings. "believes antibiotics is making her worse and is having a reaction to it, though NKA and she has been receiving on an off for duration she has been pt here in [facility]. Pt requested that the antibiotic to be changed to a different one. Provide comfort and emotional support. Notified Dr. Vogel who then requested to contact Infectious Disease doctor. Contacted Dr. Mayes with new orders to d/c next dose of Maxepime. With close monitoring. New order of Merrem 500 mg IV q8h.
[2020-11-23] MEDS ORDERED: MEROPENEM 0.5 G in IV NORMAL SALINE 50 ML IV SCH (23:21)
[2020-11-24] MEDS ORDERED: MEROPENEM 500MG/NS 50ML PB ***ER PYXIS ONLY IV ONE (00:47)
--- NOTE | 2020-11-24 02:00 | NUR ---
Due medications administered and tolerated well. BS 107, no coverage. Administered Merrem, no adverse reactions noted. No chills. Temp rechecked 98. Pt is calm and resting comfortably. Needs attended too. Safety measures maintained. Will continue to monitor throughout the night.
[2020-11-24 04:25] VITALS: BP 147/58
[2020-11-24 06:28] LABS: BASOPHILS % (AUTO) 0.2 % (0.0-2.0); EOSINOPHILS # (AUTO) 0.2 K/uL (0.0-0.7); EOSINOPHILS % (AUTO) 1.3 % (0.0-7.0); HEMATOCRIT 28.2 % (31.2-41.9); HEMOGLOBIN 9.3 g/dL (10.9-14.3); LYMPHOCYTES # (AUTO) 2.7 K/uL (20.0-40.0); LYMPHOCYTES % (AUTO) 15.9 % (20.5-51.5); MEAN CORPUSCULAR HEMOGLOBIN 27.1 uug (24.7-32.8); MEAN CORPUSCULAR HGB CONC 33 g/dL (32.3-35.6); MEAN CORPUSCULAR VOLUME 82.6 fL (75.5-95.3); MONOCYTES # (AUTO) 1.7 K/uL (2.0-10.0); MONOCYTES % (AUTO) 10.2 % (0.0-11.0); NEUTROPHILS # (AUTO) 12.3 K/uL (1.8-8.9); NEUTROPHILS % (AUTO) 72.4 % (38.5-71.5); PLATELET COUNT (AUTO) 593 K/uL (179-408); RED BLOOD CELL COUNT(AUTO) 3.41 MIL/uL (3.63-4.92)
[2020-11-24 06:41] LABS: CREATININE 1.3 mg/dL (0.6-1.3); POTASSIUM 4.4 mmol/L (3.5-5.1)
[2020-11-24] MEDS: BLOOD SUGAR DIAGNOSTIC 1 EACH STRIP VI SCH ×4 (06:43→21:18)
[2020-11-24 07:46] VITALS: BP 132/54
[2020-11-24] MEDS: SENNOSIDES/DOCUSATE SODIUM TABLET PO SCH ×2 (09:00→21:00)
[2020-11-24] MEDS: VALSARTAN 160 MG TABLET PO SCH (09:00)
[2020-11-24] MEDS: METFORMIN HCL 500 MG TABLET PO SCH (09:52)
[2020-11-24] MEDS: ZINC SULFATE 220 MG CAPSULE PO SCH (09:52)
[2020-11-24] MEDS: FOLIC ACID 1 MG TABLET PO SCH (09:52)
[2020-11-24] MEDS: ACIDOPHILUS/BULGARICUS CHEW TAB PO SCH ×2 (09:53→21:11)
[2020-11-24] MEDS: CELECOXIB 200 MG CAPSULE PO SCH ×2 (09:53→21:11)
[2020-11-24] MEDS: HYDROCHLOROTHIAZIDE 25 MG TABLET PO SCH (09:53)
[2020-11-24] MEDS: ASCORBIC ACID 500 MG TABLET PO SCH (09:53)
[2020-11-24] MEDS: OMEGA-3 FATTY ACIDS/FISH OIL CAPSULE PO SCH (09:54)
[2020-11-24] MEDS: AMLODIPINE 10 MG TABLET PO SCH (09:54)
[2020-11-24] MEDS: CYANOCOBALAMIN 100 MCG TABLET PO SCH (09:54)
[2020-11-24] MEDS ORDERED: MEROPENEM 0.5 G in IV NORMAL SALINE 50 ML IV ONE (10:00)
[2020-11-24] MEDS ORDERED: MEROPENEM 0.5 G in IV NORMAL SALINE 50 ML IV SCH (10:00)
[2020-11-24] MEDS: GLIMEPIRIDE 2 MG TABLET PO SCH (10:03)
[2020-11-24] MEDS: VITAMIN B COMPLEX 1 TABLET PO SCH (10:03)
[2020-11-24] MEDS: ANASTROZOLE 1 MG TABLET PO SCH (10:04)
--- NOTE | 2020-11-24 12:00 | NUR ---
Patient seen by Elmer MASON did dressing change of buttock and vulvar wound.
[2020-11-24] MEDS: ACETAMINOPHEN 325 MG TABLET PO PRN (12:08)
--- NOTE | 2020-11-24 12:29 | NUR ---
WOUND CARE CONSULT: PT SEEN FOR RT CHEST SURGICAL SITE. WOUND HAS SMALL AMOUNT OF SEROSANGUINOUS DRAINAGE, NO ODOR, NO ERYTHEMA. WOUND PACKED PER SURGEON ORDER WITH IODOFORM PACKING AND COVERED WITH GAUZE, SECURED WITH PAPER TAPE. WOUND PHOTO TAKEN. DISCUSSED SKIN PROTECTION WITH NURSING STAFF. IN AGREEMENT WITH PLAN OF CARE. Addendum: 11/24/20 at 1231 by MARYAM MEEKS RN Amended: Links added.
--- NOTE | 2020-11-24 12:30 | NUR ---
Patient seen by wound nurse and did dressing change of right chest surgical incision s/p port-a-cath removal (11/23/20)
[2020-11-24 13:56] LABS: BAND % (MANUAL) 1 % (0-10); LYMPHOCYTES % (MANUAL) 15 % (20-40); MONOCYTES % (MANUAL) 8 % (2-10); NEUTROPHILS % (MANUAL) 75 % (42-75)
[2020-11-24 13:57] LABS: EOSINOPHILS % (MANUAL) 1 % (0-8)
--- NOTE | 2020-11-24 15:40 | NUR ---
Spoke to Natali Torres EMERGENCY MEDICINE SPECIALIST for Dr. Magallanes, informed EMERGENCY MEDICINE SPECIALIST regarding episode of fever 100.4 with chills and increase in WBC 17.0 and procalcitonin 0.73 for today. Per EMERGENCY MEDICINE SPECIALIST she changed IV antibiotic to Meropenem and advised to do blood culture if temperature spikes to above 101F. Will continue to monitor.
[2020-11-24] MEDS ORDERED: CEFEPIME HCL 2 G in IV DEXTROSE 5% 100 ML IV SCH (18:00)
[2020-11-24 20:38] VITALS: BP 111/43
[2020-11-24] MEDS: MAGNESIUM OXIDE 250 MG TABLET PO SCH (21:12)
[2020-11-24] MEDS: MEROPENEM 1 G in IV NORMAL SALINE 100 ML IV SCH (21:16)
[2020-11-25 04:55] VITALS: BP 127/49
[2020-11-25] MEDS: BLOOD SUGAR DIAGNOSTIC 1 EACH STRIP VI SCH ×4 (06:34→21:01)
[2020-11-25 07:32] VITALS: BP 131/45
[2020-11-25] MEDS: METFORMIN HCL 500 MG TABLET PO SCH (08:32)
[2020-11-25] MEDS: ACIDOPHILUS/BULGARICUS CHEW TAB PO SCH ×2 (08:33→20:58)
[2020-11-25] MEDS: SENNOSIDES/DOCUSATE SODIUM TABLET PO SCH ×2 (08:33→20:59)
[2020-11-25] MEDS: FOLIC ACID 1 MG TABLET PO SCH (08:33)
[2020-11-25] MEDS: HYDROCHLOROTHIAZIDE 25 MG TABLET PO SCH (08:33)
[2020-11-25] MEDS: GLIMEPIRIDE 2 MG TABLET PO SCH (08:33)
[2020-11-25] MEDS: ASCORBIC ACID 500 MG TABLET PO SCH (08:34)
[2020-11-25] MEDS: AMLODIPINE 10 MG TABLET PO SCH (08:34)
[2020-11-25] MEDS: OMEGA-3 FATTY ACIDS/FISH OIL CAPSULE PO SCH (08:34)
[2020-11-25] MEDS: CELECOXIB 200 MG CAPSULE PO SCH ×2 (08:34→20:58)
[2020-11-25] MEDS: CYANOCOBALAMIN 100 MCG TABLET PO SCH (08:34)
[2020-11-25] MEDS: ZINC SULFATE 220 MG CAPSULE PO SCH (08:34)
[2020-11-25] MEDS: VITAMIN B COMPLEX 1 TABLET PO SCH (08:37)
[2020-11-25] MEDS: ANASTROZOLE 1 MG TABLET PO SCH (08:38)
[2020-11-25] MEDS: MEROPENEM 1 G in IV NORMAL SALINE 100 ML IV SCH ×2 (08:39→21:11)
[2020-11-25] MEDS: VALSARTAN 160 MG TABLET PO SCH (08:40)
[2020-11-25] MEDS: IV D5/ 0.9% NACL 1,000 ML IV PRN (12:45)
[2020-11-25] MEDS ORDERED: ONDANSETRON 4 MG/2 ML VIAL IV PRN (13:15)
[2020-11-25 14:50] VITALS: BP 128/68
--- NOTE | 2020-11-25 14:51 | NUR ---
patient refused IV hydration fluids, risks and benefits explained, patient verbalized understanding of it
--- NOTE | 2020-11-25 18:41 | NUR ---
wound dressings done as ordered, right buttock wound, no drainage, no malodor, right groin wound, no drainage, no odor noted, right upper chest wound, status post mary cath removal, no drainage no malodor noted, wound bed is red in color.
[2020-11-25 20:24] VITALS: BP 115/53
[2020-11-25] MEDS: MAGNESIUM OXIDE 250 MG TABLET PO SCH (20:58)
[2020-11-25] MEDS ORDERED: MIRTAZAPINE 15 MG TABLET PO SCH (21:00)
[2020-11-26 04:00] VITALS: BP 129/53
[2020-11-26] MEDS: BLOOD SUGAR DIAGNOSTIC 1 EACH STRIP VI SCH ×4 (05:53→20:28)
--- NOTE | 2020-11-26 06:14 | NUR ---
Shift End Report: Vs stable. No s/s of hypo/hyperglycemia. No complaint presented all night. Slept well. No s/s of adverse reaction from Merrem. HL on RH intact and patent. All needs attended and met. No significant event reported. Continue current rehab plan of care.
[2020-11-26 07:50] VITALS: BP 124/51
[2020-11-26] MEDS: CYANOCOBALAMIN 100 MCG TABLET PO SCH (08:27)
[2020-11-26] MEDS: CELECOXIB 200 MG CAPSULE PO SCH ×2 (08:39→20:25)
[2020-11-26] MEDS: METFORMIN HCL 500 MG TABLET PO SCH (08:39)
[2020-11-26] MEDS: FOLIC ACID 1 MG TABLET PO SCH (08:39)
[2020-11-26] MEDS: ACIDOPHILUS/BULGARICUS CHEW TAB PO SCH ×2 (08:39→20:26)
[2020-11-26] MEDS: ASCORBIC ACID 500 MG TABLET PO SCH (08:39)
[2020-11-26] MEDS: ZINC SULFATE 220 MG CAPSULE PO SCH (08:39)
[2020-11-26] MEDS: OMEGA-3 FATTY ACIDS/FISH OIL CAPSULE PO SCH (08:40)
[2020-11-26] MEDS: GLIMEPIRIDE 2 MG TABLET PO SCH (08:40)
[2020-11-26] MEDS: HYDROCHLOROTHIAZIDE 25 MG TABLET PO SCH (08:40)
[2020-11-26] MEDS: AMLODIPINE 10 MG TABLET PO SCH (08:41)
[2020-11-26] MEDS: VITAMIN B COMPLEX 1 TABLET PO SCH (08:42)
[2020-11-26] MEDS: ANASTROZOLE 1 MG TABLET PO SCH (08:46)
[2020-11-26] MEDS: MEROPENEM 1 G in IV NORMAL SALINE 100 ML IV SCH (08:55)
[2020-11-26] MEDS: VALSARTAN 160 MG TABLET PO SCH (09:00)
[2020-11-26] MEDS ORDERED: GENTAMICIN SULFATE INJ 100 MG in IV DEXTROSE 5% 100 ML IV SCH (12:00)
[2020-11-26] MEDS ORDERED: GENTAMICIN SULFATE 20 MG/2 ML VIAL IV SCH (12:00)
[2020-11-26] MEDS ORDERED: PIPERACILLIN SODIUM/TAZOBACTAM 3.375 G in IV DEXTROSE 5% 50 ML IV SCH (12:00)
--- NOTE | 2020-11-26 12:53 | NUR ---
patient refused to have IV antibiotic gentamycin IV, Patient stated she would like to have more explanation for new antibiotics first, patient right for the explanation respected, contacted dr dunn ID regarding patient request, per dr dunn he will be here later and will talk to patient.
[2020-11-26] MEDS: PIPERACILLIN SODIUM/TAZOBACTAM 3.375 G in IV DEXTROSE 5% 50 ML IV SCH ×2 (14:00→22:17)
[2020-11-26 15:21] VITALS: BP 121/49
--- NOTE | 2020-11-26 19:35 | NUR ---
Sleeping during initial rounds. No s/s of respiratory distress noted. HL on RH wrapped with Kerlix roll. Safety measures and fall prevention maintained. Continue care as planned.
--- NOTE | 2020-11-26 20:00 | NUR ---
First dose of Gentamycin IV started. Will monitor.
[2020-11-26] MEDS: GENTAMICIN SULFATE INJ 100 MG in IV DEXTROSE 5% 100 ML IV SCH (20:07)
[2020-11-26 20:17] VITALS: BP 140/63
[2020-11-26] MEDS: MAGNESIUM OXIDE 250 MG TABLET PO SCH (20:26)
--- NOTE | 2020-11-26 22:00 | NUR ---
Zosyn IV started. Will monitor.
[2020-11-27 04:00] VITALS: BP 104/58
[2020-11-27] MEDS: PIPERACILLIN SODIUM/TAZOBACTAM 3.375 G in IV DEXTROSE 5% 50 ML IV SCH ×3 (05:17→22:11)
--- NOTE | 2020-11-27 05:39 | NUR ---
Shift End Report: VSS. No s/s of adverse reaction noted from her new IV antibiotics. Slept good. No complaint presented. No s/s of hypo/hyperglycemia noted. No significant event reported all night. All needs attended and met. Continue current rehab plan of destiny.
[2020-11-27 05:46] LABS: BASOPHILS % (AUTO) 0.2 % (0.0-2.0); EOSINOPHILS # (AUTO) 0.3 K/uL (0.0-0.7); EOSINOPHILS % (AUTO) 2.6 % (0.0-7.0); HEMATOCRIT 26.6 % (31.2-41.9); HEMOGLOBIN 8.8 g/dL (10.9-14.3); LYMPHOCYTES # (AUTO) 2.7 K/uL (20.0-40.0); LYMPHOCYTES % (AUTO) 25.9 % (20.5-51.5); MEAN CORPUSCULAR HEMOGLOBIN 27.3 uug (24.7-32.8); MEAN CORPUSCULAR HGB CONC 33 g/dL (32.3-35.6); MEAN CORPUSCULAR VOLUME 82.1 fL (75.5-95.3); MONOCYTES # (AUTO) 1.1 K/uL (2.0-10.0); MONOCYTES % (AUTO) 10.6 % (0.0-11.0); NEUTROPHILS # (AUTO) 6.2 K/uL (1.8-8.9); NEUTROPHILS % (AUTO) 60.7 % (38.5-71.5); PLATELET COUNT (AUTO) 615 K/uL (179-408); RED BLOOD CELL COUNT(AUTO) 3.24 MIL/uL (3.63-4.92); WHITE BLOOD COUNT (AUTO) 10.2 K/uL (3.8-11.8)
[2020-11-27 05:57] LABS: POTASSIUM 4.3 mmol/L (3.5-5.1)
[2020-11-27] MEDS: BLOOD SUGAR DIAGNOSTIC 1 EACH STRIP VI SCH ×4 (06:01→20:38)
[2020-11-27 08:00] VITALS: BP 116/50
[2020-11-27] MEDS: AMLODIPINE 10 MG TABLET PO SCH (09:00)
[2020-11-27] MEDS: METFORMIN HCL 500 MG TABLET PO SCH (09:03)
[2020-11-27] MEDS: OMEGA-3 FATTY ACIDS/FISH OIL CAPSULE PO SCH (09:03)
[2020-11-27] MEDS: GLIMEPIRIDE 2 MG TABLET PO SCH (09:03)
[2020-11-27] MEDS: ZINC SULFATE 220 MG CAPSULE PO SCH (09:04)
[2020-11-27] MEDS: CELECOXIB 200 MG CAPSULE PO SCH ×2 (09:04→20:27)
[2020-11-27] MEDS: CYANOCOBALAMIN 100 MCG TABLET PO SCH (09:04)
[2020-11-27] MEDS: FOLIC ACID 1 MG TABLET PO SCH (09:04)
[2020-11-27] MEDS: HYDROCHLOROTHIAZIDE 25 MG TABLET PO SCH (09:04)
[2020-11-27] MEDS: ACIDOPHILUS/BULGARICUS CHEW TAB PO SCH ×2 (09:05→20:27)
[2020-11-27] MEDS: VITAMIN B COMPLEX 1 TABLET PO SCH (09:05)
[2020-11-27] MEDS: ASCORBIC ACID 500 MG TABLET PO SCH (09:06)
[2020-11-27] MEDS: ANASTROZOLE 1 MG TABLET PO SCH (09:12)
[2020-11-27] MEDS: GENTAMICIN SULFATE INJ 100 MG in IV DEXTROSE 5% 100 ML IV SCH ×2 (09:13→20:27)
--- NOTE | 2020-11-27 10:37 | NUR ---
RIGHT BUTTOCK WOUND GOT DEBRIDED BY NETTIE IVY, NOTED WITH MODERATE SEROSANGUINEOUS DRAINAGE ON DRESSING AND IODOFORM WELL, NO MALODOROUS NOTED, RIGHT BUTTOCK WOUND CURRENTLY IS TUNNELLING 7.3CM AT 6 O CLOCK AND UNDERMINING FROM 12 TO 5 O CLOCK 3CM, WOUND MEASUREMENTS ARE 1.7 CM X 1.4 CM. RIGHT GROIN OPEN WOUND MEASURES 1 CM X 0.4 CM X 1.1 CM, SCANT SEROUS DRAINAGE ON IODOFORM DRESSING STATUS POST KATHRYN CATH REMOVAL WOUND BED IS RED IN COLOR, SCANT SEROUS DRAINAGE,NO MALODOROUS NOTED, CONTINUE WITH TX ORDERED.
[2020-11-27 16:00] VITALS: BP 127/50
[2020-11-27 20:00] VITALS: BP 125/56
[2020-11-27] MEDS: MAGNESIUM OXIDE 250 MG TABLET PO SCH (20:27)
--- NOTE | 2020-11-27 22:50 | NUR ---
Received pt resting comfortably in bed. AAO x4. No acute distress noted. Denies pain/ discomfort. Due meds given as ordered. IV on right hand, pt is on antibiotics. Safety measures maintained. Call light and personal items within reach. Will continue to monitor.
[2020-11-28 04:00] VITALS: BP 119/64
[2020-11-28] MEDS: PIPERACILLIN SODIUM/TAZOBACTAM 3.375 G in IV DEXTROSE 5% 50 ML IV SCH ×3 (05:09→21:01)
--- NOTE | 2020-11-28 05:49 | NUR ---
Wound care and dressing change done. No drainage noted.
[2020-11-28] MEDS: BLOOD SUGAR DIAGNOSTIC 1 EACH STRIP VI SCH ×4 (06:55→21:00)
[2020-11-28 08:00] VITALS: BP 131/55
[2020-11-28] MEDS: GENTAMICIN SULFATE INJ 100 MG in IV DEXTROSE 5% 100 ML IV SCH (08:10)
--- NOTE | 2020-11-28 08:16 | NUR ---
Received patient alert and oriented x 4, denies of any pain at this time, no sob noted. Notify the pharmacy as Gentamicin IV is due to start and piperacillin is still running. Per pharmacist it is ok to run piperacillin and gentamicin at the same time . Informed the patient, and patient refused . Pert patient she wants to have the Gentamicin first and continue piperacillin later. Right peripheral IV site intact and patent. Will continue to monitor.
--- NOTE | 2020-11-28 08:46 | NUR ---
Critical value of Gentamicin trough received from the lab and notified the pharmacy stated that it is ok to run the Gentamicin because lab will check again her blood for peak blood.
[2020-11-28] MEDS: CYANOCOBALAMIN 100 MCG TABLET PO SCH (10:05)
[2020-11-28] MEDS: METFORMIN HCL 500 MG TABLET PO SCH (10:06)
[2020-11-28] MEDS: GLIMEPIRIDE 2 MG TABLET PO SCH (10:06)
[2020-11-28] MEDS: ZINC SULFATE 220 MG CAPSULE PO SCH (10:06)
[2020-11-28] MEDS: ACIDOPHILUS/BULGARICUS CHEW TAB PO SCH ×2 (10:06→21:00)
[2020-11-28] MEDS: FOLIC ACID 1 MG TABLET PO SCH (10:06)
[2020-11-28] MEDS: HYDROCHLOROTHIAZIDE 25 MG TABLET PO SCH (10:07)
[2020-11-28] MEDS: CELECOXIB 200 MG CAPSULE PO SCH ×2 (10:07→21:00)
[2020-11-28] MEDS: OMEGA-3 FATTY ACIDS/FISH OIL CAPSULE PO SCH (10:07)
[2020-11-28] MEDS: AMLODIPINE 10 MG TABLET PO SCH (10:07)
[2020-11-28] MEDS: ASCORBIC ACID 500 MG TABLET PO SCH (10:07)
[2020-11-28] MEDS: ANASTROZOLE 1 MG TABLET PO SCH (10:08)
[2020-11-28] MEDS: VITAMIN B COMPLEX 1 TABLET PO SCH (10:08)
[2020-11-28 11:03] LABS: CREATININE 1.3 mg/dL (0.6-1.3)
[2020-11-28 15:21] VITALS: BP 127/51
--- NOTE | 2020-11-28 15:52 | NUR ---
Patient is cooperative and no s/s of distress participated in her therapy , in room air saturating at 98%. All needs met, Dressing changed on her right buttocks and incision site with no bleeding noted. IV site on the right peripheral hand patent and intact covered with Kerlix dressing. Call light placed within reach will continue to monitor.
[2020-11-28 20:31] VITALS: BP 120/51
[2020-11-28] MEDS: MAGNESIUM OXIDE 250 MG TABLET PO SCH (21:00)
[2020-11-29 05:00] VITALS: BP 142/66
[2020-11-29] MEDS: PIPERACILLIN SODIUM/TAZOBACTAM 3.375 G in IV DEXTROSE 5% 50 ML IV SCH ×2 (05:35→13:46)
[2020-11-29] MEDS: BLOOD SUGAR DIAGNOSTIC 1 EACH STRIP VI SCH ×4 (06:37→20:28)
[2020-11-29] MEDS: ANASTROZOLE 1 MG TABLET PO SCH (09:16)
[2020-11-29] MEDS: GLIMEPIRIDE 2 MG TABLET PO SCH (09:17)
[2020-11-29] MEDS: VITAMIN B COMPLEX 1 TABLET PO SCH (09:18)
[2020-11-29] MEDS: OMEGA-3 FATTY ACIDS/FISH OIL CAPSULE PO SCH (09:19)
[2020-11-29] MEDS: FOLIC ACID 1 MG TABLET PO SCH (09:19)
[2020-11-29] MEDS: ASCORBIC ACID 500 MG TABLET PO SCH (09:19)
[2020-11-29] MEDS: ZINC SULFATE 220 MG CAPSULE PO SCH (09:19)
[2020-11-29] MEDS: HYDROCHLOROTHIAZIDE 25 MG TABLET PO SCH (09:19)
[2020-11-29] MEDS: CELECOXIB 200 MG CAPSULE PO SCH ×2 (09:19→20:22)
[2020-11-29] MEDS: ACIDOPHILUS/BULGARICUS CHEW TAB PO SCH ×2 (09:19→20:22)
[2020-11-29] MEDS: AMLODIPINE 10 MG TABLET PO SCH (09:19)
[2020-11-29] MEDS: METFORMIN HCL 500 MG TABLET PO SCH (09:20)
[2020-11-29] MEDS: CYANOCOBALAMIN 100 MCG TABLET PO SCH (09:20)
[2020-11-29 11:35] VITALS: BP 150/60
[2020-11-29 15:56] VITALS: BP 134/62
--- NOTE | 2020-11-29 16:08 | NUR ---
Pt in bed watching TV, no acute distress, A&Ox4, able to verbalize needs. VSS at this time. Pt denies pain/discomfort at this time. Due medications given per order, no a/r noted. IV Zosyn infusion, will monitor closely. Wound care administered per protocol. Safety measures and fall precautions in place. Call light and belongings in reach. Will continue to monitor.
--- NOTE | 2020-11-29 18:49 | NUR ---
End of shift note: Pt in bed, no acute distress, no reports of pain/discomfort at this time. IV Zosyn finished infusing, no a/r noted. VSS. Pt declined ordered IV fluids, risks, benefits, side effects, purpose discussed with pt, continued to decline, pt right respected. Safety maintained. Call light within reach. Will endorse care to shift production associate nurse.
[2020-11-29] MEDS: IV D5/ 0.9% NACL 1,000 ML IV PRN (18:52)
[2020-11-29 20:00] VITALS: BP 133/64
[2020-11-29] MEDS: MAGNESIUM OXIDE 250 MG TABLET PO SCH (20:22)
[2020-11-29] MEDS: PIPERACILLIN SODIUM/TAZOBACTAM 3.37 G in IV DEXTROSE 5% 100 ML IV SCH (21:35)
[2020-11-29] MEDS ORDERED: PIPERACILLIN SODIUM/TAZOBACTAM 3.375 G in IV DEXTROSE 5% 50 ML IV SCH (22:00)
[2020-11-30 04:00] VITALS: BP 134/58
[2020-11-30] MEDS: PIPERACILLIN SODIUM/TAZOBACTAM 3.37 G in IV DEXTROSE 5% 100 ML IV SCH ×3 (06:21→21:32)
[2020-11-30] MEDS: BLOOD SUGAR DIAGNOSTIC 1 EACH STRIP VI SCH ×4 (06:28→20:20)
[2020-11-30] MEDS: GLIMEPIRIDE 2 MG TABLET PO SCH (08:50)
[2020-11-30] MEDS: CELECOXIB 200 MG CAPSULE PO SCH ×2 (09:07→20:10)
[2020-11-30] MEDS: OMEGA-3 FATTY ACIDS/FISH OIL CAPSULE PO SCH (09:07)
[2020-11-30] MEDS: METFORMIN HCL 500 MG TABLET PO SCH (09:07)
[2020-11-30] MEDS: FOLIC ACID 1 MG TABLET PO SCH (09:07)
[2020-11-30] MEDS: ZINC SULFATE 220 MG CAPSULE PO SCH (09:08)
[2020-11-30] MEDS: AMLODIPINE 10 MG TABLET PO SCH (09:08)
[2020-11-30] MEDS: ASCORBIC ACID 500 MG TABLET PO SCH (09:08)
[2020-11-30] MEDS: CYANOCOBALAMIN 100 MCG TABLET PO SCH (09:08)
[2020-11-30] MEDS: ACIDOPHILUS/BULGARICUS CHEW TAB PO SCH ×2 (09:08→20:10)
[2020-11-30] MEDS: VITAMIN B COMPLEX 1 TABLET PO SCH (09:09)
[2020-11-30] MEDS: HYDROCHLOROTHIAZIDE 25 MG TABLET PO SCH (09:09)
[2020-11-30] MEDS: ANASTROZOLE 1 MG TABLET PO SCH (09:11)
[2020-11-30 11:02] VITALS: BP 139/59
--- NOTE | 2020-11-30 11:27 | NUR ---
Pt in no acute distress, A&Ox4, able to verbalize needs, all needs met at this time. VSS. Pt denies pain/discomfort at this time. Due medications given per order, no a/r noted. R Hand 20 g IV patent and intact. Pt participating with OT. Accucheck 187 mg/dL, no sliding scale coverage ordered, pt receives PO medications for DM. Safety measures and fall precautions in place. Call light and belongings in reach. Will continue to monitor. Addendum: 11/30/20 at 1131 by ELISSA ACUNA RN RN Pt declined IV fluids ordered, purpose, risks, benefits, side effects, discussed, pt continued to decline, pt right respected.
[2020-11-30] MEDS: IV D5/ 0.9% NACL 1,000 ML IV PRN (11:32)
[2020-11-30 13:28] LABS: CREATININE 1.2 mg/dL (0.6-1.3)
[2020-11-30] MEDS: GENTAMICIN SULFATE INJ 100 MG in IV DEXTROSE 5% 100 ML IV SCH (14:00)
[2020-11-30 16:54] VITALS: BP 128/52
--- NOTE | 2020-11-30 18:10 | NUR ---
Pt in bed watching TV, no acute distress. VSS. Pt remained afebrile this shift. All needs met at this time. Due medications administered per order including IV antibiotics, no a/r noted. Pt denies pain/discomfort at this time. Wound care administered per order, pt tolerated well. Safety ensured. Call light and belongings within reach. Will endorse care to psych therapist nurse.
[2020-11-30 20:00] VITALS: BP 125/51
[2020-11-30] MEDS: MAGNESIUM OXIDE 250 MG TABLET PO SCH (20:10)
--- NOTE | 2020-11-30 21:45 | NUR ---
Received report from Jessica KWAN. Received pt in bed, awake and verbally responsive, able to make needs known. Denies any pain or discomfort, no s/s of distress. Safety measures initiated, call light within reach, will continue to monitor.
[2020-12-01 04:00] VITALS: BP 129/60
[2020-12-01] MEDS: PIPERACILLIN SODIUM/TAZOBACTAM 3.37 G in IV DEXTROSE 5% 100 ML IV SCH ×3 (05:25→21:36)
--- NOTE | 2020-12-01 06:29 | NUR ---
Pt awake in bed, able to make needs known. Assisted with toileting using bedside commode. No s/s of respiratory distress, denies any pain or discomfort. Antibiotics infusing on R hand, medications tolerated well. Safety measures in place, call light within reach, all needs attended.
[2020-12-01] MEDS: BLOOD SUGAR DIAGNOSTIC 1 EACH STRIP VI SCH ×4 (06:38→20:22)
--- NOTE | 2020-12-01 07:30 | NUR ---
Received patient awake in bed. on room air. no signs of acute distress. patient denies any pain/ discomfort. with Right hand #22 gauge IV access. will continue to monitor.
[2020-12-01 08:00] VITALS: BP 110/56
[2020-12-01] MEDS: GLIMEPIRIDE 2 MG TABLET PO SCH (08:00)
[2020-12-01] MEDS: CELECOXIB 200 MG CAPSULE PO SCH ×2 (09:07→20:14)
[2020-12-01] MEDS: ACIDOPHILUS/BULGARICUS CHEW TAB PO SCH ×2 (09:07→20:14)
[2020-12-01] MEDS: OMEGA-3 FATTY ACIDS/FISH OIL CAPSULE PO SCH (09:08)
[2020-12-01] MEDS: CYANOCOBALAMIN 100 MCG TABLET PO SCH (09:08)
[2020-12-01] MEDS: METFORMIN HCL 500 MG TABLET PO SCH (09:08)
[2020-12-01 09:09] LABS: BASOPHILS % (AUTO) 0.3 % (0.0-2.0); EOSINOPHILS # (AUTO) 0.2 K/uL (0.0-0.7); EOSINOPHILS % (AUTO) 1.7 % (0.0-7.0); HEMATOCRIT 27.4 % (31.2-41.9); HEMOGLOBIN 9.2 g/dL (10.9-14.3); LYMPHOCYTES % (AUTO) 21.4 % (20.5-51.5); MEAN CORPUSCULAR HGB CONC 33 g/dL (32.3-35.6); MEAN CORPUSCULAR VOLUME 80.8 fL (75.5-95.3); MONOCYTES # (AUTO) 0.8 K/uL (2.0-10.0); MONOCYTES % (AUTO) 8.2 % (0.0-11.0); NEUTROPHILS # (AUTO) 6.4 K/uL (1.8-8.9); NEUTROPHILS % (AUTO) 68.4 % (38.5-71.5); PLATELET COUNT (AUTO) 776 K/uL (179-408); RED BLOOD CELL COUNT(AUTO) 3.39 MIL/uL (3.63-4.92); WHITE BLOOD COUNT (AUTO) 9.4 K/uL (3.8-11.8)
[2020-12-01] MEDS: ZINC SULFATE 220 MG CAPSULE PO SCH (09:09)
[2020-12-01] MEDS: ASCORBIC ACID 500 MG TABLET PO SCH (09:09)
[2020-12-01] MEDS: FOLIC ACID 1 MG TABLET PO SCH (09:09)
[2020-12-01] MEDS: VITAMIN B COMPLEX 1 TABLET PO SCH (09:10)
[2020-12-01] MEDS: ANASTROZOLE 1 MG TABLET PO SCH (09:11)
[2020-12-01] MEDS: AMLODIPINE 10 MG TABLET PO SCH (09:16)
[2020-12-01] MEDS: HYDROCHLOROTHIAZIDE 25 MG TABLET PO SCH (09:16)
[2020-12-01 09:45] LABS: BILIRUBIN,TOTAL 0.2 mg/dL (0.2-1.0); CREATININE 1.1 mg/dL (0.6-1.3); POTASSIUM 3.8 mmol/L (3.5-5.1); TOTAL PROTEIN, SERUM 7.2 g/dL (6.4-8.2)
[2020-12-01] MEDS: GENTAMICIN SULFATE INJ 100 MG in IV DEXTROSE 5% 100 ML IV SCH (14:14)
[2020-12-01 15:43] VITALS: BP 120/45
--- NOTE | 2020-12-01 18:39 | NUR ---
Patient awake in bed. On room air. patient denies any pain discomfort. no signs of acute distress. compliant with care and medications. wound care treatment provided. will endorse to incoming shift for continuity of care.
[2020-12-01 19:42] VITALS: BP 116/59
[2020-12-01] MEDS: MAGNESIUM OXIDE 250 MG TABLET PO SCH (20:16)
--- NOTE | 2020-12-02 02:43 | NUR ---
Awake alert and oriented during initial round Condition unchanged. Dressing intact to buttocks/groin. Needs attended. IV ABT given as scheduled via right arm heplock. OOB to bedside commode with walker. Voiding well. Will monitor patient.VSS.
[2020-12-02 04:48] VITALS: BP 138/67
[2020-12-02] MEDS: PIPERACILLIN SODIUM/TAZOBACTAM 3.37 G in IV DEXTROSE 5% 100 ML IV SCH ×2 (05:34→21:39)
--- NOTE | 2020-12-02 06:27 | NUR ---
End of shift notes: Quiet night. No complained presented during the shift. Accucheck 108 this am. IV Zosyn given as scheduled. No distress noted. Fall precautions maintained.VSS.
[2020-12-02] MEDS: BLOOD SUGAR DIAGNOSTIC 1 EACH STRIP VI SCH ×4 (06:31→20:57)
[2020-12-02 08:00] VITALS: BP 132/59
[2020-12-02] MEDS: ANASTROZOLE 1 MG TABLET PO SCH (08:36)
[2020-12-02] MEDS: ZINC SULFATE 220 MG CAPSULE PO SCH (08:39)
[2020-12-02] MEDS: GLIMEPIRIDE 2 MG TABLET PO SCH (08:39)
[2020-12-02] MEDS: FOLIC ACID 1 MG TABLET PO SCH (08:39)
[2020-12-02] MEDS: ASCORBIC ACID 500 MG TABLET PO SCH (08:39)
[2020-12-02] MEDS: CELECOXIB 200 MG CAPSULE PO SCH ×2 (08:40→20:56)
[2020-12-02] MEDS: ACIDOPHILUS/BULGARICUS CHEW TAB PO SCH ×2 (08:40→20:56)
[2020-12-02] MEDS: METFORMIN HCL 500 MG TABLET PO SCH (08:40)
[2020-12-02] MEDS: OMEGA-3 FATTY ACIDS/FISH OIL CAPSULE PO SCH (08:40)
[2020-12-02] MEDS: AMLODIPINE 10 MG TABLET PO SCH (08:40)
[2020-12-02] MEDS: HYDROCHLOROTHIAZIDE 25 MG TABLET PO SCH (08:40)
[2020-12-02] MEDS: VITAMIN B COMPLEX 1 TABLET PO SCH (08:41)
[2020-12-02] MEDS: CYANOCOBALAMIN 100 MCG TABLET PO SCH (08:41)
--- NOTE | 2020-12-02 09:57 | NUR ---
WOUND CARE CONSULT: PT REQUESTING NAIL TRIM. TOENAILS ARE LONG AND SHARP/JAGGED. DR PAZ NOTIFIED. PT FOLLOWED BY SURGICAL TEAM FOR WOUND TREATMENT. WILL SEE PRN.
--- NOTE | 2020-12-02 11:25 | NUR ---
Pt in no acute distress, A&Ox4, able to verbalize needs, all needs met at this time. Physical therapist safely assisted pt from bed to BSC, then to for therapy session. VSS, pt afebrile. Pt denies pain/discomfort at this time. Due medications given per order, no a/r noted. R Hand 20 g IV patent and intact. IV Zosyn infused with no a/r noted. Dr. Hamilton at bedside this am to trim pt's toenails, pt tolerated well. Safety measures and fall precautions in place. Call light and belongings in reach. Will continue to monitor.
[2020-12-02] MEDS: GENTAMICIN SULFATE INJ 100 MG in IV DEXTROSE 5% 100 ML IV SCH (14:02)
[2020-12-02 15:53] VITALS: BP 125/54
[2020-12-02] MEDS ORDERED: PIPERACILLIN SODIUM/TAZOBACTAM 3.37 G in IV DEXTROSE 5% 100 ML IV SCH (16:00)
[2020-12-02] MEDS: IV D5/ 0.9% NACL 1,000 ML IV PRN (16:45)
--- NOTE | 2020-12-02 18:41 | NUR ---
Pt watching TV, no acute distress, all needs met at this time. VSS. Pt remained afebrile. Due medications administered per order, no a/r noted. IV Gentamicin administered per order, no a/r noted. Pt denies pain/discomfort at this time. Wound care administered per order, photos taken for chart. Pt received shower with OT today. Pt assisted safely from bed to BSC and back. Safety measures maintained. Call light and belongings within reach. Will endorse care to farm equipment assembler nurse.
[2020-12-02 20:00] VITALS: BP 126/54
[2020-12-02] MEDS: MAGNESIUM OXIDE 250 MG TABLET PO SCH (20:56)
--- NOTE | 2020-12-02 21:50 | NUR ---
Received patient AAO X 4 at room air watching TV with no acute distress, dressing intact buttocks/groin. Assisted bedside commode patient voided well, assisted back to bed on IV ATB as scheduled on back of right hand no complication no adverse reaction noted. Safety measures observed all time. Belongings with in reach, call light with in reach. Needs anticipated, continue with current plan of care.
[2020-12-03 04:56] VITALS: BP 143/58
[2020-12-03] MEDS: PIPERACILLIN SODIUM/TAZOBACTAM 3.37 G in IV DEXTROSE 5% 100 ML IV SCH ×3 (06:01→21:30)
[2020-12-03] MEDS: BLOOD SUGAR DIAGNOSTIC 1 EACH STRIP VI SCH ×4 (06:49→20:19)
--- NOTE | 2020-12-03 06:51 | NUR ---
Patient slept intermittently, AAO x 4 no acute distress, no c/o pain or discomfort, IV ATB as scheduled started on right hand no s/s of infiltration noted, VSS. All needs anticipated. will endorsed accordingly to AM shift. Call light with in reach.
[2020-12-03] MEDS: FOLIC ACID 1 MG TABLET PO SCH (08:30)
[2020-12-03] MEDS: OMEGA-3 FATTY ACIDS/FISH OIL CAPSULE PO SCH (08:30)
[2020-12-03] MEDS: ACIDOPHILUS/BULGARICUS CHEW TAB PO SCH ×2 (08:30→21:29)
[2020-12-03] MEDS: METFORMIN HCL 500 MG TABLET PO SCH (08:30)
[2020-12-03] MEDS: ASCORBIC ACID 500 MG TABLET PO SCH (08:31)
[2020-12-03] MEDS: ZINC SULFATE 220 MG CAPSULE PO SCH (08:31)
[2020-12-03] MEDS: GLIMEPIRIDE 2 MG TABLET PO SCH (08:31)
[2020-12-03] MEDS: HYDROCHLOROTHIAZIDE 25 MG TABLET PO SCH (08:31)
[2020-12-03] MEDS: AMLODIPINE 10 MG TABLET PO SCH (08:31)
[2020-12-03] MEDS: CELECOXIB 200 MG CAPSULE PO SCH ×2 (08:31→21:29)
[2020-12-03] MEDS: CYANOCOBALAMIN 100 MCG TABLET PO SCH (08:32)
[2020-12-03] MEDS: VITAMIN B COMPLEX 1 TABLET PO SCH (08:32)
[2020-12-03] MEDS: CLOTRIMAZOLE 1% CREAM 30 GM TUBE TOP SCH (08:33)
[2020-12-03 08:36] VITALS: BP 131/42
[2020-12-03] MEDS: ANASTROZOLE 1 MG TABLET PO SCH (08:41)
[2020-12-03 15:00] VITALS: BP 131/36
--- NOTE | 2020-12-03 18:21 | NUR ---
EOSS: No significant acute changes during this shift. No changes in LOC, A/Ox4 verbally responsive and able to make needs known. Pt. seen by PA, s/p I&D or Rt. buttock and Rt. inguinal fold. Remain on IV ABX, no ASE noted. No s/sx of hypo/hyperglycemia. All due medications given as ordered and tolerated well. All pt. needs attended and met. Safety measures in place. Call light and all frequently used items within pt. reach. Will endorse to oncoming shift.
[2020-12-03 20:00] VITALS: BP 128/50
[2020-12-03] MEDS: MAGNESIUM OXIDE 250 MG TABLET PO SCH (21:29)
--- NOTE | 2020-12-03 21:50 | NUR ---
Patient AAOx4, at room air, no acute distress, able to make needs known. Assisted with toileting using bedside commode. No s/s of respiratory distress, denies any pain or discomfort. Antibiotics infused on R hand, no adverse reaction noted. Safety measures in place, call light within reach, all needs attended.
[2020-12-04 04:35] VITALS: BP 142/67
[2020-12-04] MEDS: PIPERACILLIN SODIUM/TAZOBACTAM 3.37 G in IV DEXTROSE 5% 100 ML IV SCH ×3 (05:32→21:15)
[2020-12-04 06:45] LABS: BASOPHILS % (AUTO) 0.4 % (0.0-2.0); EOSINOPHILS # (AUTO) 0.2 K/uL (0.0-0.7); EOSINOPHILS % (AUTO) 2.2 % (0.0-7.0); HEMATOCRIT 29.2 % (31.2-41.9); HEMOGLOBIN 9.7 g/dL (10.9-14.3); LYMPHOCYTES # (AUTO) 2.4 K/uL (20.0-40.0); MEAN CORPUSCULAR HEMOGLOBIN 26.9 uug (24.7-32.8); MEAN CORPUSCULAR HGB CONC 33 g/dL (32.3-35.6); MEAN CORPUSCULAR VOLUME 81.4 fL (75.5-95.3); MONOCYTES # (AUTO) 0.8 K/uL (2.0-10.0); MONOCYTES % (AUTO) 9.6 % (0.0-11.0); NEUTROPHILS # (AUTO) 4.9 K/uL (1.8-8.9); NEUTROPHILS % (AUTO) 58.8 % (38.5-71.5); PLATELET COUNT (AUTO) 760 K/uL (179-408); RED BLOOD CELL COUNT(AUTO) 3.59 MIL/uL (3.63-4.92); WHITE BLOOD COUNT (AUTO) 8.3 K/uL (3.8-11.8)
[2020-12-04 06:52] LABS: CREATININE 1.3 mg/dL (0.6-1.3); MAGNESIUM 2.4 mg/dL (1.8-2.4); PHOSPHOROUS 3.9 mg/dL (2.5-4.9)
[2020-12-04] MEDS: BLOOD SUGAR DIAGNOSTIC 1 EACH STRIP VI SCH ×4 (07:33→20:56)
--- NOTE | 2020-12-04 07:35 | NUR ---
Received patient awake in bed. AOx4. on room air. no signs of acute distress. patient denies pain/discomfort at this time. bed locked and in low position. bed alarm on. call light within reach. Will continue to monitor.
[2020-12-04 08:00] VITALS: BP 136/55
[2020-12-04] MEDS: GLIMEPIRIDE 2 MG TABLET PO SCH (08:27)
[2020-12-04] MEDS: METFORMIN HCL 500 MG TABLET PO SCH (09:09)
[2020-12-04] MEDS: CYANOCOBALAMIN 100 MCG TABLET PO SCH (09:10)
[2020-12-04] MEDS: OMEGA-3 FATTY ACIDS/FISH OIL CAPSULE PO SCH (09:10)
[2020-12-04] MEDS: FOLIC ACID 1 MG TABLET PO SCH (09:10)
[2020-12-04] MEDS: CELECOXIB 200 MG CAPSULE PO SCH ×2 (09:10→20:50)
[2020-12-04] MEDS: ASCORBIC ACID 500 MG TABLET PO SCH (09:10)
[2020-12-04] MEDS: ACIDOPHILUS/BULGARICUS CHEW TAB PO SCH ×2 (09:10→20:50)
[2020-12-04] MEDS: ZINC SULFATE 220 MG CAPSULE PO SCH (09:10)
[2020-12-04] MEDS: CLOTRIMAZOLE 1% CREAM 30 GM TUBE TOP SCH (09:11)
[2020-12-04] MEDS: AMLODIPINE 10 MG TABLET PO SCH (09:11)
[2020-12-04] MEDS: HYDROCHLOROTHIAZIDE 25 MG TABLET PO SCH (09:11)
[2020-12-04] MEDS: VITAMIN B COMPLEX 1 TABLET PO SCH (09:12)
[2020-12-04] MEDS: ANASTROZOLE 1 MG TABLET PO SCH (09:13)
[2020-12-04 15:58] VITALS: BP 121/56
--- NOTE | 2020-12-04 18:48 | NUR ---
Patient awake AOx4. On room air. No signs of acute distress. Patient denies pain or discomfort at this time. Wound care provided as ordered. Patient compliant with medications and care. Bed locked and in low position for safety. Bed alarm on and call light within reach. Will endorse to incoming shift.
[2020-12-04 20:29] VITALS: BP 123/56
[2020-12-04] MEDS: MAGNESIUM OXIDE 250 MG TABLET PO SCH (20:51)
--- NOTE | 2020-12-04 22:05 | NUR ---
AAOx4 OOB to bedside commode with supervision. Voiding well. BM noted this shift. Compliant with meds. Denies any pain nor any discomfort. IV Zosyn given as ordered via right arm heplock. Tolerated well. No ill effects noted. Accucheck @ 2100 121. All needs attended. Dressing intact to buttocks & groin. Will monitor patient. VSS.
[2020-12-05 04:52] VITALS: BP 150/67
[2020-12-05] MEDS: PIPERACILLIN SODIUM/TAZOBACTAM 3.37 G in IV DEXTROSE 5% 100 ML IV SCH ×3 (05:56→21:07)
--- NOTE | 2020-12-05 06:27 | NUR ---
End of shift notes: Slept well throughout the night. OOB to commode. Voiding well. BM noted this shift. All needs attended and met. No complaints presented during the shift. Will monitor patient.
[2020-12-05] MEDS: BLOOD SUGAR DIAGNOSTIC 1 EACH STRIP VI SCH ×3 (06:36→16:56)
--- NOTE | 2020-12-05 07:32 | NUR ---
Received patient awake in bed. AOx4. on room air. no signs of acute distress. patient denies pain/ discomfort at this time. bed locked and in low position. call light within reach. will continue to monitor.
[2020-12-05] MEDS: OMEGA-3 FATTY ACIDS/FISH OIL CAPSULE PO SCH (08:51)
[2020-12-05] MEDS: ASCORBIC ACID 500 MG TABLET PO SCH (08:52)
[2020-12-05] MEDS: FOLIC ACID 1 MG TABLET PO SCH (08:52)
[2020-12-05] MEDS: CELECOXIB 200 MG CAPSULE PO SCH ×2 (08:52→20:46)
[2020-12-05] MEDS: METFORMIN HCL 500 MG TABLET PO SCH (08:52)
[2020-12-05] MEDS: HYDROCHLOROTHIAZIDE 25 MG TABLET PO SCH (08:52)
[2020-12-05] MEDS: GLIMEPIRIDE 2 MG TABLET PO SCH (08:52)
[2020-12-05] MEDS: CYANOCOBALAMIN 100 MCG TABLET PO SCH (08:52)
[2020-12-05] MEDS: ACIDOPHILUS/BULGARICUS CHEW TAB PO SCH ×2 (08:52→20:46)
[2020-12-05] MEDS: ZINC SULFATE 220 MG CAPSULE PO SCH (08:52)
[2020-12-05] MEDS: CLOTRIMAZOLE 1% CREAM 30 GM TUBE TOP SCH (08:53)
[2020-12-05] MEDS: AMLODIPINE 10 MG TABLET PO SCH (08:53)
[2020-12-05] MEDS: VITAMIN B COMPLEX 1 TABLET PO SCH (08:53)
[2020-12-05] MEDS: ANASTROZOLE 1 MG TABLET PO SCH (08:54)
[2020-12-05 10:21] VITALS: BP 151/63
--- NOTE | 2020-12-05 16:20 | NUR ---
Patient blood glucose is 57. Patient denies any weakness, lightheadedness, pallor. Patient given 2 cups of orange juice. Will continue to monitor patient and will recheck blood sugar in 30 minutes.
[2020-12-05 16:41] VITALS: BP 132/53
--- NOTE | 2020-12-05 16:55 | NUR ---
Patient blood glucose is 77. Patient denies any weakness, lightheadedness, pallor. Will continue to monitor patient.
--- NOTE | 2020-12-05 18:35 | NUR ---
No significant changes during shift. Patient awake in bed. AOx4. On room air. No signs of acute distress. Patient denies pain/ discomfort at this time. Patient compliant of care. Medications given as ordered and patient tolerated well. Wound care treatment provided as ordered. Patient participated with Physical and Occupational therapy. Safety measures observed. Will endorse to incoming shift for continuity of care.
[2020-12-05 20:00] VITALS: BP 124/54
[2020-12-05] MEDS: MAGNESIUM OXIDE 250 MG TABLET PO SCH (20:47)
--- NOTE | 2020-12-05 21:46 | NUR ---
Condition unchanged. AAOx4 No acute distress noted. VSS. OOB to bedside commode. Voiding freely. Will monitor patient. IV ABT given as scheduled with no ill effects noted. No complaints presented so far. All due meds given.
[2020-12-06 04:00] VITALS: BP 145/78
[2020-12-06] MEDS: PIPERACILLIN SODIUM/TAZOBACTAM 3.37 G in IV DEXTROSE 5% 100 ML IV SCH ×3 (05:24→21:13)
--- NOTE | 2020-12-06 06:17 | NUR ---
End of shift notes: Slept well throughout the night. AAOx4 All needs attended. IV ABT given with no side effects. VSS. Voiding well.
[2020-12-06 08:30] VITALS: BP 125/55
[2020-12-06] MEDS: VITAMIN B COMPLEX 1 TABLET PO SCH (08:43)
[2020-12-06] MEDS: ACIDOPHILUS/BULGARICUS CHEW TAB PO SCH ×2 (08:44→20:36)
[2020-12-06] MEDS: METFORMIN HCL 500 MG TABLET PO SCH (08:44)
[2020-12-06] MEDS: ZINC SULFATE 220 MG CAPSULE PO SCH (08:44)
[2020-12-06] MEDS: ASCORBIC ACID 500 MG TABLET PO SCH (08:44)
[2020-12-06] MEDS: FOLIC ACID 1 MG TABLET PO SCH (08:44)
[2020-12-06] MEDS: OMEGA-3 FATTY ACIDS/FISH OIL CAPSULE PO SCH (08:44)
[2020-12-06] MEDS: GLIMEPIRIDE 2 MG TABLET PO SCH (08:44)
[2020-12-06] MEDS: CELECOXIB 200 MG CAPSULE PO SCH ×2 (08:46→20:36)
[2020-12-06] MEDS: CYANOCOBALAMIN 100 MCG TABLET PO SCH (08:46)
[2020-12-06] MEDS: AMLODIPINE 10 MG TABLET PO SCH (08:47)
[2020-12-06] MEDS: HYDROCHLOROTHIAZIDE 25 MG TABLET PO SCH (08:47)
[2020-12-06] MEDS: CLOTRIMAZOLE 1% CREAM 30 GM TUBE TOP SCH ×2 (08:47→09:00)
[2020-12-06] MEDS: ANASTROZOLE 1 MG TABLET PO SCH (08:49)
[2020-12-06] MEDS ORDERED: DEXTROSE 50% 50 ML DISP.SYRIN IV PRN (14:00)
--- NOTE | 2020-12-06 14:30 | NUR ---
Pt in no acute distress, all needs met at this time. Assisted pt safely from bed to BSC and back. Pt denies pain/discomfort at this time. Due medications given per order, no a/r noted. Pt refused Lotrimin cream this am, per pt "there's no fungus". R Hand IV patent and intact. IV Zosyn infusing, will monitor. Pt received shower with OT. Wound care administered per order, pt tolerated well. Safety measures and fall precautions in place. Call light and belongings in reach. Will continue to monitor.
[2020-12-06 15:51] VITALS: BP 126/54
[2020-12-06] MEDS: BLOOD SUGAR DIAGNOSTIC 1 EACH STRIP VI SCH ×2 (16:36→20:40)
--- NOTE | 2020-12-06 18:47 | NUR ---
EOSS: Assisted pt OOB to BSC and back, pt voiding well. Pt in no acute distress, all needs met at this time. VSS. Due medications including IV Zosyn administered per order, no a/r noted. Accucheck 121 this afternoon, per order no insulin needed. Pt denies pain/discomfort at this time. Safety maintained. Call light and belongings within reach. Will endorse care to correctional therapy teacher nurse.
[2020-12-06 20:17] VITALS: BP 125/56
[2020-12-06] MEDS: MAGNESIUM OXIDE 250 MG TABLET PO SCH (20:36)
--- NOTE | 2020-12-06 21:47 | NUR ---
NO acute distress noted. Denies any pain/ discomfort at the moment. VSS. OOB to bedside commode. Voiding freely. All due medications administered and tolerated well. IV ABT infusing RFA 20G IV intact and patent. Needs attended too. Safety measures maintained. Call light and all personal items within pt reach. Will continue to monitor throughout the night.
[2020-12-07 04:38] VITALS: BP 142/58
[2020-12-07] MEDS: PIPERACILLIN SODIUM/TAZOBACTAM 3.37 G in IV DEXTROSE 5% 100 ML IV SCH ×4 (05:29→21:12)
[2020-12-07 07:44] LABS: BASOPHILS % (AUTO) 0.5 % (0.0-2.0); EOSINOPHILS # (AUTO) 0.2 K/uL (0.0-0.7); EOSINOPHILS % (AUTO) 1.7 % (0.0-7.0); HEMATOCRIT 30.8 % (31.2-41.9); HEMOGLOBIN 10.4 g/dL (10.9-14.3); LYMPHOCYTES # (AUTO) 2.5 K/uL (20.0-40.0); LYMPHOCYTES % (AUTO) 27.1 % (20.5-51.5); MEAN CORPUSCULAR HEMOGLOBIN 27.2 uug (24.7-32.8); MEAN CORPUSCULAR HGB CONC 34 g/dL (32.3-35.6); MEAN CORPUSCULAR VOLUME 80.7 fL (75.5-95.3); MONOCYTES # (AUTO) 0.7 K/uL (2.0-10.0); MONOCYTES % (AUTO) 7.7 % (0.0-11.0); NEUTROPHILS # (AUTO) 5.8 K/uL (1.8-8.9); PLATELET COUNT (AUTO) 734 K/uL (179-408); RED BLOOD CELL COUNT(AUTO) 3.81 MIL/uL (3.63-4.92); WHITE BLOOD COUNT (AUTO) 9.2 K/uL (3.8-11.8)
[2020-12-07 08:00] VITALS: BP 136/64
[2020-12-07] MEDS: GLIMEPIRIDE 2 MG TABLET PO SCH (08:57)
[2020-12-07] MEDS: FOLIC ACID 1 MG TABLET PO SCH (08:58)
[2020-12-07] MEDS: VITAMIN B COMPLEX 1 TABLET PO SCH (08:58)
[2020-12-07] MEDS: ASCORBIC ACID 500 MG TABLET PO SCH (08:58)
[2020-12-07] MEDS: BLOOD SUGAR DIAGNOSTIC 1 EACH STRIP VI SCH ×4 (08:58→21:11)
[2020-12-07] MEDS: METFORMIN HCL 500 MG TABLET PO SCH (08:58)
[2020-12-07] MEDS: ACIDOPHILUS/BULGARICUS CHEW TAB PO SCH ×2 (08:58→21:08)
[2020-12-07] MEDS: OMEGA-3 FATTY ACIDS/FISH OIL CAPSULE PO SCH (08:58)
[2020-12-07] MEDS: CELECOXIB 200 MG CAPSULE PO SCH ×2 (08:58→21:08)
[2020-12-07] MEDS: ZINC SULFATE 220 MG CAPSULE PO SCH (08:58)
[2020-12-07] MEDS: HYDROCHLOROTHIAZIDE 25 MG TABLET PO SCH (08:59)
[2020-12-07] MEDS: AMLODIPINE 10 MG TABLET PO SCH (08:59)
[2020-12-07] MEDS: CYANOCOBALAMIN 100 MCG TABLET PO SCH (09:00)
[2020-12-07] MEDS: CLOTRIMAZOLE 1% CREAM 30 GM TUBE TOP SCH (09:00)
[2020-12-07] MEDS: ANASTROZOLE 1 MG TABLET PO SCH (09:01)
[2020-12-07] MEDS: INSULIN REGULAR, HUMAN 300 UNIT/3 ML VIAL SQ PRN ×2 (12:45→16:36)
[2020-12-07 16:00] VITALS: BP 118/59
--- NOTE | 2020-12-07 16:38 | NUR ---
Pt in bed watching TV, no acute distress, all needs met. OOB to BSC, voiding freely, safety ensured. Pt denies pain/discomfort at this time. Due medications given per order, no a/r noted. BS checks 209 and 157 today. Pt refused ordered insulin: purpose, risks, benefits, side effects discussed, pt continued to refuse. R Hand IV patent and intact, IV Zosyn infusing. Wound care administered per order. Call light and belongings in reach. Will continue to monitor. Addendum: 12/07/20 at 1645 by ELISSA ACUNA RN RN VSS, pt afebrile.
[2020-12-07 20:24] VITALS: BP 124/59
[2020-12-07] MEDS: MAGNESIUM OXIDE 250 MG TABLET PO SCH (21:08)
[2020-12-08 04:00] VITALS: BP 147/59
[2020-12-08] MEDS: PIPERACILLIN SODIUM/TAZOBACTAM 3.37 G in IV DEXTROSE 5% 100 ML IV SCH ×3 (05:01→21:50)
[2020-12-08] MEDS: BLOOD SUGAR DIAGNOSTIC 1 EACH STRIP VI SCH ×4 (06:28→20:29)
[2020-12-08 08:00] VITALS: BP 117/58
[2020-12-08] MEDS: ANASTROZOLE 1 MG TABLET PO SCH (09:19)
[2020-12-08] MEDS: OMEGA-3 FATTY ACIDS/FISH OIL CAPSULE PO SCH (09:20)
[2020-12-08] MEDS: METFORMIN HCL 500 MG TABLET PO SCH (09:20)
[2020-12-08] MEDS: ACIDOPHILUS/BULGARICUS CHEW TAB PO SCH ×2 (09:20→20:24)
[2020-12-08] MEDS: ASCORBIC ACID 500 MG TABLET PO SCH (09:20)
[2020-12-08] MEDS: ZINC SULFATE 220 MG CAPSULE PO SCH (09:20)
[2020-12-08] MEDS: GLIMEPIRIDE 2 MG TABLET PO SCH (09:20)
[2020-12-08] MEDS: HYDROCHLOROTHIAZIDE 25 MG TABLET PO SCH (09:20)
[2020-12-08] MEDS: CYANOCOBALAMIN 100 MCG TABLET PO SCH (09:21)
[2020-12-08] MEDS: FOLIC ACID 1 MG TABLET PO SCH (09:22)
[2020-12-08] MEDS: CELECOXIB 200 MG CAPSULE PO SCH ×2 (09:22→20:24)
[2020-12-08] MEDS: VITAMIN B COMPLEX 1 TABLET PO SCH (09:23)
[2020-12-08] MEDS: AMLODIPINE 10 MG TABLET PO SCH (09:27)
[2020-12-08] MEDS: CLOTRIMAZOLE 1% CREAM 30 GM TUBE TOP SCH (09:33)
[2020-12-08 14:00] VITALS: BP 124/55
[2020-12-08 20:00] VITALS: BP 100/56
[2020-12-08] MEDS: MAGNESIUM OXIDE 250 MG TABLET PO SCH (20:25)
--- NOTE | 2020-12-09 00:43 | NUR ---
AAOx4 Watching TV upon initial rounds. Condition unchanged. VSS. OOB to bedside commode. Voiding well. IV Zosyn given as scheduled via right arm heplock. Needs attended. Accucheck @ 2100 was 156. Compliant with meds. No distress noted.
[2020-12-09 04:05] VITALS: BP 134/68
[2020-12-09] MEDS: PIPERACILLIN SODIUM/TAZOBACTAM 3.37 G in IV DEXTROSE 5% 100 ML IV SCH ×3 (05:48→21:20)
--- NOTE | 2020-12-09 06:17 | NUR ---
End of shift notes: Slept well throughout the night. OOB to bedside commode to void. Voids without difficulty. On accucheck ac &hs. Accucheck 115. Needs attended. IV Zosyn infusing as well via right arm heplock.
[2020-12-09] MEDS: BLOOD SUGAR DIAGNOSTIC 1 EACH STRIP VI SCH ×4 (06:31→20:33)
[2020-12-09 08:00] VITALS: BP 134/59
[2020-12-09] MEDS: CLOTRIMAZOLE 1% CREAM 30 GM TUBE TOP SCH (09:00)
[2020-12-09] MEDS: ZINC SULFATE 220 MG CAPSULE PO SCH (09:43)
[2020-12-09] MEDS: HYDROCHLOROTHIAZIDE 25 MG TABLET PO SCH (09:43)
[2020-12-09] MEDS: OMEGA-3 FATTY ACIDS/FISH OIL CAPSULE PO SCH (09:43)
[2020-12-09] MEDS: GLIMEPIRIDE 2 MG TABLET PO SCH (09:43)
[2020-12-09] MEDS: METFORMIN HCL 500 MG TABLET PO SCH (09:43)
[2020-12-09] MEDS: ASCORBIC ACID 500 MG TABLET PO SCH (09:43)
[2020-12-09] MEDS: FOLIC ACID 1 MG TABLET PO SCH (09:43)
[2020-12-09] MEDS: ACIDOPHILUS/BULGARICUS CHEW TAB PO SCH ×2 (09:43→20:29)
[2020-12-09] MEDS: CELECOXIB 200 MG CAPSULE PO SCH ×2 (09:43→20:29)
[2020-12-09] MEDS: CYANOCOBALAMIN 100 MCG TABLET PO SCH (09:44)
[2020-12-09] MEDS: AMLODIPINE 10 MG TABLET PO SCH (09:44)
[2020-12-09] MEDS: VITAMIN B COMPLEX 1 TABLET PO SCH (09:44)
[2020-12-09] MEDS: ANASTROZOLE 1 MG TABLET PO SCH (09:46)
--- NOTE | 2020-12-09 16:26 | NUR ---
Pt in no acute distress, watching TV, all needs met. VSS, pt afebrile. Pt OOB to BS, voiding freely, had BM. Pt denies pain/discomfort at this time. Due medications given per order, no a/r noted. Pt refused ordered Lotrimin cream and insulin, pt right to refuse respected. IV Zosyn infusing, will monitor. Wound care administered per order. Safety measures and fall precautions in place. Call light and belongings in reach. Continue to monitor.
[2020-12-09 16:37] VITALS: BP 132/57
--- NOTE | 2020-12-09 19:05 | NUR ---
Pt in no acute distress, no complaints, all needs met at this time. Safety ensured. Call light and belongings within reach. Will endorse care to maintenance technician 3rd shift nurse.
[2020-12-09 20:00] VITALS: BP 120/58
[2020-12-09] MEDS: MAGNESIUM OXIDE 250 MG TABLET PO SCH (20:28)
--- NOTE | 2020-12-09 21:14 | NUR ---
resting in bed upon initial rounds. Watching TV. All needs attended. IV ABT given at scheduled times. No side effects noted. VSS. No acute distress noted. Compliant with meds. Accucheck 105. OOB to bedside commode to void. On air mattress. Dressing clean dry and intact. For possible debridement at bedside in am. Will monitor patient. Kept comfortable.
[2020-12-10 04:40] VITALS: BP 143/54
[2020-12-10] MEDS: PIPERACILLIN SODIUM/TAZOBACTAM 3.37 G in IV DEXTROSE 5% 100 ML IV SCH ×2 (05:56→13:45)
[2020-12-10] MEDS: BLOOD SUGAR DIAGNOSTIC 1 EACH STRIP VI SCH ×4 (06:36→20:48)
[2020-12-10 06:42] LABS: BASOPHILS % (AUTO) 0.2 % (0.0-2.0); EOSINOPHILS # (AUTO) 0.2 K/uL (0.0-0.7); EOSINOPHILS % (AUTO) 2.5 % (0.0-7.0); HEMATOCRIT 31.8 % (31.2-41.9); HEMOGLOBIN 10.4 g/dL (10.9-14.3); LYMPHOCYTES # (AUTO) 2.9 K/uL (20.0-40.0); LYMPHOCYTES % (AUTO) 32.6 % (20.5-51.5); MEAN CORPUSCULAR HEMOGLOBIN 26.5 uug (24.7-32.8); MEAN CORPUSCULAR HGB CONC 33 g/dL (32.3-35.6); MEAN CORPUSCULAR VOLUME 81.1 fL (75.5-95.3); MONOCYTES # (AUTO) 0.9 K/uL (2.0-10.0); MONOCYTES % (AUTO) 10.1 % (0.0-11.0); NEUTROPHILS # (AUTO) 4.8 K/uL (1.8-8.9); NEUTROPHILS % (AUTO) 54.6 % (38.5-71.5); PLATELET COUNT (AUTO) 774 K/uL (179-408); RED BLOOD CELL COUNT(AUTO) 3.93 MIL/uL (3.63-4.92); WHITE BLOOD COUNT (AUTO) 8.7 K/uL (3.8-11.8)
--- NOTE | 2020-12-10 06:44 | NUR ---
End of shift notes: Condition unchanged. All due meds given without difficulty. Slept well throughout the night. VSS. Kept comfortable. Continent of bowel and bladder. No complained of pain nor any discomfort.
[2020-12-10 06:55] LABS: BILIRUBIN,TOTAL 0.2 mg/dL (0.2-1.0); MAGNESIUM 2.4 mg/dL (1.8-2.4); PHOSPHOROUS 3.6 mg/dL (2.5-4.9); TOTAL PROTEIN, SERUM 7.8 g/dL (6.4-8.2)
[2020-12-10 07:47] VITALS: BP 145/67
[2020-12-10] MEDS: GLIMEPIRIDE 2 MG TABLET PO SCH (08:10)
[2020-12-10] MEDS: OMEGA-3 FATTY ACIDS/FISH OIL CAPSULE PO SCH (08:15)
[2020-12-10] MEDS: CYANOCOBALAMIN 100 MCG TABLET PO SCH (08:15)
[2020-12-10] MEDS: ZINC SULFATE 220 MG CAPSULE PO SCH (08:16)
[2020-12-10] MEDS: METFORMIN HCL 500 MG TABLET PO SCH (08:16)
[2020-12-10] MEDS: CELECOXIB 200 MG CAPSULE PO SCH ×2 (08:16→20:43)
[2020-12-10] MEDS: AMLODIPINE 10 MG TABLET PO SCH (08:16)
[2020-12-10] MEDS: ASCORBIC ACID 500 MG TABLET PO SCH (08:16)
[2020-12-10] MEDS: FOLIC ACID 1 MG TABLET PO SCH (08:16)
[2020-12-10] MEDS: ACIDOPHILUS/BULGARICUS CHEW TAB PO SCH ×2 (08:16→20:43)
[2020-12-10] MEDS: HYDROCHLOROTHIAZIDE 25 MG TABLET PO SCH (08:17)
[2020-12-10] MEDS: ANASTROZOLE 1 MG TABLET PO SCH (08:18)
[2020-12-10] MEDS: VITAMIN B COMPLEX 1 TABLET PO SCH (08:18)
[2020-12-10] MEDS: CLOTRIMAZOLE 1% CREAM 30 GM TUBE TOP SCH (08:19)
[2020-12-10 15:08] LABS: EOSINOPHILS % (MANUAL) 1 % (0-8); LYMPHOCYTES % (MANUAL) 25 % (20-40); MONOCYTES % (MANUAL) 7 % (2-10); NEUTROPHILS % (MANUAL) 67 % (42-75)
[2020-12-10 15:58] VITALS: BP 126/50
--- NOTE | 2020-12-10 18:50 | NUR ---
Patient remains alert, oriented x 4, not in any form of distress, on room air. She denies any pain or discomfort. Patient participated with PT and OT today. Patient is compliant with medications and care. Needs attended to promptly. Call light and frequently used items placed within reach. Peripheral IV line on the right hand intact and patent with no signs of infection.
--- NOTE | 2020-12-10 19:44 | NUR ---
Received patient AAO x 4, at room air saturating good, IV on right hand intact no infiltration noted. Able to let her needs known to staff, no acute c/o pain or distress. will continue with care. safety measures observed call light with in reach.
[2020-12-10 20:20] VITALS: BP 133/58
[2020-12-10] MEDS: MAGNESIUM OXIDE 250 MG TABLET PO SCH (20:48)
[2020-12-10] MEDS: MUPIROCIN 2% OINT 22 GM TUBE TP SCH (20:48)
--- NOTE | 2020-12-10 22:00 | NUR ---
Patient AAO X4 no acute distress no c/o pain or discomfort breathing at room air saturating 98% VSS, accu-chek done as scheduled BS 180, patient refused ordered sliding scale insulin risk and benefits discussed, patient aware, respected patient rights, will monitor, Right hand peripheral IV site intact, no adverse reaction noted of s/p ATB . All due medication administered as ordered, fluids intake as tolerated. All belongings with in reach, Assisted patient bedside commode, voided well. All needs anticipated. wound dressing intact, clean and dry, Call light with in reach safety measures observed all time.
[2020-12-11 05:17] VITALS: BP 146/70
--- NOTE | 2020-12-11 06:29 | NUR ---
Patient slept well all night, no c/o pain or discomfort, no s/s of hypo or hyperglycemia noted. all needs anticipated. Safety measures observed all time . Kept call light with in reach.
[2020-12-11 06:30] LABS: BASOPHILS % (AUTO) 0.5 % (0.0-2.0); EOSINOPHILS # (AUTO) 0.2 K/uL (0.0-0.7); EOSINOPHILS % (AUTO) 3.1 % (0.0-7.0); HEMATOCRIT 32.6 % (31.2-41.9); HEMOGLOBIN 10.4 g/dL (10.9-14.3); LYMPHOCYTES # (AUTO) 2.3 K/uL (20.0-40.0); LYMPHOCYTES % (AUTO) 29.3 % (20.5-51.5); MEAN CORPUSCULAR HGB CONC 32 g/dL (32.3-35.6); MEAN CORPUSCULAR VOLUME 81.2 fL (75.5-95.3); MONOCYTES # (AUTO) 0.8 K/uL (2.0-10.0); MONOCYTES % (AUTO) 10.5 % (0.0-11.0); NEUTROPHILS # (AUTO) 4.5 K/uL (1.8-8.9); NEUTROPHILS % (AUTO) 56.6 % (38.5-71.5); PLATELET COUNT (AUTO) 732 K/uL (179-408); RED BLOOD CELL COUNT(AUTO) 4.01 MIL/uL (3.63-4.92); WHITE BLOOD COUNT (AUTO) 7.9 K/uL (3.8-11.8)
[2020-12-11] MEDS: BLOOD SUGAR DIAGNOSTIC 1 EACH STRIP VI SCH ×4 (06:55→20:26)
[2020-12-11 07:35] VITALS: BP 135/51
[2020-12-11] MEDS: METFORMIN HCL 500 MG TABLET PO SCH (08:47)
[2020-12-11] MEDS: ASCORBIC ACID 500 MG TABLET PO SCH (08:47)
[2020-12-11] MEDS: OMEGA-3 FATTY ACIDS/FISH OIL CAPSULE PO SCH (08:47)
[2020-12-11] MEDS: AMLODIPINE 10 MG TABLET PO SCH (08:47)
[2020-12-11] MEDS: ACIDOPHILUS/BULGARICUS CHEW TAB PO SCH ×2 (08:47→20:34)
[2020-12-11] MEDS: ZINC SULFATE 220 MG CAPSULE PO SCH (08:48)
[2020-12-11] MEDS: VITAMIN B COMPLEX 1 TABLET PO SCH (08:48)
[2020-12-11] MEDS: CELECOXIB 200 MG CAPSULE PO SCH ×2 (08:48→20:34)
[2020-12-11] MEDS: FOLIC ACID 1 MG TABLET PO SCH (08:48)
[2020-12-11] MEDS: HYDROCHLOROTHIAZIDE 25 MG TABLET PO SCH (08:48)
[2020-12-11] MEDS: GLIMEPIRIDE 2 MG TABLET PO SCH (08:48)
[2020-12-11] MEDS: ANASTROZOLE 1 MG TABLET PO SCH (08:50)
[2020-12-11] MEDS: CYANOCOBALAMIN 100 MCG TABLET PO SCH (08:50)
[2020-12-11] MEDS: CLOTRIMAZOLE 1% CREAM 30 GM TUBE TOP SCH (08:52)
[2020-12-11] MEDS: MUPIROCIN 2% OINT 22 GM TUBE TP SCH ×2 (08:53→20:54)
[2020-12-11 15:24] VITALS: BP 144/46
[2020-12-11 20:16] VITALS: BP 132/59
[2020-12-11] MEDS: INSULIN REGULAR, HUMAN 300 UNIT/3 ML VIAL SQ PRN (20:27)
[2020-12-11] MEDS: MAGNESIUM OXIDE 250 MG TABLET PO SCH (20:35)
--- NOTE | 2020-12-11 21:36 | NUR ---
Received patient AAO X 4 with no acute distress, At room Air saturating 97% no c/o pain or discomfort, Peripheral IV on Right hand intact. VSS Wounds Dressing intact, Assisted with bed side commode voiding well Accu-check done, as ordered BS 169, patient refused to get sliding scale insulin as ordered risk and benefits discussed. ' states, "she does not take insulin, Md aware of that" Respected patients right, no s/s of hypo or hyperglycemia noted. All due medication administered as order, complied with care. safety measures observed all time. Call light with in reach. Continue with Rehab plan of care.
[2020-12-12 04:34] VITALS: BP 142/64
[2020-12-12 06:34] LABS: BASOPHILS % (AUTO) 0.4 % (0.0-2.0); EOSINOPHILS # (AUTO) 0.3 K/uL (0.0-0.7); EOSINOPHILS % (AUTO) 3.3 % (0.0-7.0); HEMATOCRIT 32.4 % (31.2-41.9); HEMOGLOBIN 10.6 g/dL (10.9-14.3); LYMPHOCYTES % (AUTO) 38.3 % (20.5-51.5); MEAN CORPUSCULAR HEMOGLOBIN 26.4 uug (24.7-32.8); MEAN CORPUSCULAR HGB CONC 33 g/dL (32.3-35.6); MONOCYTES # (AUTO) 0.9 K/uL (2.0-10.0); MONOCYTES % (AUTO) 11.2 % (0.0-11.0); NEUTROPHILS # (AUTO) 3.7 K/uL (1.8-8.9); NEUTROPHILS % (AUTO) 46.8 % (38.5-71.5); PLATELET COUNT (AUTO) 684 K/uL (179-408); WHITE BLOOD COUNT (AUTO) 7.9 K/uL (3.8-11.8)
[2020-12-12] MEDS: BLOOD SUGAR DIAGNOSTIC 1 EACH STRIP VI SCH ×4 (06:49→21:02)
[2020-12-12 07:08] LABS: MAGNESIUM 2.3 mg/dL (1.8-2.4); PHOSPHOROUS 4.1 mg/dL (2.5-4.9); POTASSIUM 3.9 mmol/L (3.5-5.1)
[2020-12-12 08:00] VITALS: BP 133/55
[2020-12-12] MEDS: VITAMIN B COMPLEX 1 TABLET PO SCH (09:07)
[2020-12-12] MEDS: ANASTROZOLE 1 MG TABLET PO SCH (09:08)
[2020-12-12] MEDS: FOLIC ACID 1 MG TABLET PO SCH (09:09)
[2020-12-12] MEDS: ASCORBIC ACID 500 MG TABLET PO SCH (09:09)
[2020-12-12] MEDS: OMEGA-3 FATTY ACIDS/FISH OIL CAPSULE PO SCH (09:09)
[2020-12-12] MEDS: ACIDOPHILUS/BULGARICUS CHEW TAB PO SCH ×2 (09:09→20:57)
[2020-12-12] MEDS: METFORMIN HCL 500 MG TABLET PO SCH (09:09)
[2020-12-12] MEDS: ZINC SULFATE 220 MG CAPSULE PO SCH (09:10)
[2020-12-12] MEDS: AMLODIPINE 10 MG TABLET PO SCH (09:11)
[2020-12-12] MEDS: CELECOXIB 200 MG CAPSULE PO SCH ×2 (09:11→20:57)
[2020-12-12] MEDS: GLIMEPIRIDE 2 MG TABLET PO SCH (09:12)
[2020-12-12] MEDS: CYANOCOBALAMIN 100 MCG TABLET PO SCH (09:12)
[2020-12-12] MEDS: HYDROCHLOROTHIAZIDE 25 MG TABLET PO SCH (09:21)
[2020-12-12] MEDS: MUPIROCIN 2% OINT 22 GM TUBE TP SCH ×2 (10:17→21:09)
[2020-12-12] MEDS: CLOTRIMAZOLE 1% CREAM 30 GM TUBE TOP SCH (10:18)
[2020-12-12 16:40] VITALS: BP 114/56
--- NOTE | 2020-12-12 19:05 | NUR ---
In bed, awake, alert and oriented x 4. Denies any pain/discomforts at this time. Assisted to BSC, voided good. No complaint presented. Safety measures and fall prevention maintained. Continue care as planned.
[2020-12-12 19:56] VITALS: BP 113/47
[2020-12-12] MEDS: MAGNESIUM OXIDE 250 MG TABLET PO SCH (20:57)
[2020-12-12] MEDS: INSULIN REGULAR, HUMAN 300 UNIT/3 ML VIAL SQ PRN (21:07)
--- NOTE | 2020-12-12 21:08 | NUR ---
BS 179mg/dl. Patient refused Insulin coverage per sliding scale.
[2020-12-13 04:50] VITALS: BP 150/56
[2020-12-13] MEDS: BLOOD SUGAR DIAGNOSTIC 1 EACH STRIP VI SCH ×4 (06:23→20:44)
--- NOTE | 2020-12-13 06:27 | NUR ---
Shift End Report: VSS, Slept in between care. All needs attended and met. No s/s of hypo/hyperglycemia. No s/s of hypo/hypertension. All needs attended and met. No significant event reported all night. Continue current rehab plan of care.
[2020-12-13 08:00] VITALS: BP 139/57
[2020-12-13] MEDS: METFORMIN HCL 500 MG TABLET PO SCH (08:37)
[2020-12-13] MEDS: OMEGA-3 FATTY ACIDS/FISH OIL CAPSULE PO SCH (08:37)
[2020-12-13] MEDS: ACIDOPHILUS/BULGARICUS CHEW TAB PO SCH ×2 (08:37→20:39)
[2020-12-13] MEDS: CYANOCOBALAMIN 100 MCG TABLET PO SCH (08:38)
[2020-12-13] MEDS: HYDROCHLOROTHIAZIDE 25 MG TABLET PO SCH (08:38)
[2020-12-13] MEDS: GLIMEPIRIDE 2 MG TABLET PO SCH (08:38)
[2020-12-13] MEDS: FOLIC ACID 1 MG TABLET PO SCH (08:38)
[2020-12-13] MEDS: CELECOXIB 200 MG CAPSULE PO SCH ×2 (08:38→20:39)
[2020-12-13] MEDS: AMLODIPINE 10 MG TABLET PO SCH (08:38)
[2020-12-13] MEDS: ZINC SULFATE 220 MG CAPSULE PO SCH (08:39)
[2020-12-13] MEDS: ASCORBIC ACID 500 MG TABLET PO SCH (08:39)
[2020-12-13] MEDS: ANASTROZOLE 1 MG TABLET PO SCH (08:39)
[2020-12-13] MEDS: MUPIROCIN 2% OINT 22 GM TUBE TP SCH ×2 (08:50→20:45)
[2020-12-13] MEDS: CLOTRIMAZOLE 1% CREAM 30 GM TUBE TOP SCH (08:50)
[2020-12-13] MEDS: VITAMIN B COMPLEX 1 TABLET PO SCH (09:19)
[2020-12-13 15:35] VITALS: BP 135/52
--- NOTE | 2020-12-13 19:05 | NUR ---
In bed, awake, alert and oriented x 4, very pleasant, conversant, expressing plans upon hospital discharge. No complaint presented. Proper home wound care been discussed. Safety measures and fall prevention maintained. Continue care as planned.
[2020-12-13 20:19] VITALS: BP 123/51
[2020-12-13] MEDS: MAGNESIUM OXIDE 250 MG TABLET PO SCH (20:39)
[2020-12-13] MEDS: INSULIN REGULAR, HUMAN 300 UNIT/3 ML VIAL SQ PRN (21:09)
[2020-12-14 04:26] VITALS: BP 126/55
[2020-12-14] MEDS: BLOOD SUGAR DIAGNOSTIC 1 EACH STRIP VI SCH ×2 (05:55→12:16)
--- NOTE | 2020-12-14 05:59 | NUR ---
Shift End Report: VSS. No complaint presented. No s/s of hypo/hyperglycemia. All needs attended and met. No significant event reported all night. Slept good. Continue current rehab plan of care.
[2020-12-14 07:39] VITALS: BP 148/67
[2020-12-14] MEDS: GLIMEPIRIDE 2 MG TABLET PO SCH (08:52)
[2020-12-14] MEDS: ACIDOPHILUS/BULGARICUS CHEW TAB PO SCH (08:52)
[2020-12-14] MEDS: OMEGA-3 FATTY ACIDS/FISH OIL CAPSULE PO SCH (08:52)
[2020-12-14] MEDS: CELECOXIB 200 MG CAPSULE PO SCH (08:52)
[2020-12-14] MEDS: ZINC SULFATE 220 MG CAPSULE PO SCH (08:52)
[2020-12-14] MEDS: METFORMIN HCL 500 MG TABLET PO SCH (08:52)
[2020-12-14] MEDS: CYANOCOBALAMIN 100 MCG TABLET PO SCH (08:53)
[2020-12-14] MEDS: FOLIC ACID 1 MG TABLET PO SCH (08:53)
[2020-12-14] MEDS: HYDROCHLOROTHIAZIDE 25 MG TABLET PO SCH (08:53)
[2020-12-14] MEDS: ASCORBIC ACID 500 MG TABLET PO SCH (08:53)
[2020-12-14] MEDS: AMLODIPINE 10 MG TABLET PO SCH (08:53)
[2020-12-14] MEDS: VITAMIN B COMPLEX 1 TABLET PO SCH (08:53)
[2020-12-14] MEDS: ANASTROZOLE 1 MG TABLET PO SCH (08:54)
[2020-12-14] MEDS: CLOTRIMAZOLE 1% CREAM 30 GM TUBE TOP SCH (08:55)
[2020-12-14] MEDS: MUPIROCIN 2% OINT 22 GM TUBE TP SCH (08:58)
[2020-12-14] MEDS: INSULIN REGULAR, HUMAN 300 UNIT/3 ML VIAL SQ PRN (12:16)
--- NOTE | 2020-12-14 12:34 | NUR ---
Pt refused ordered insulin today, BS 166. Pt right to refuse respected.
[2020-12-14 15:18] VITALS: BP_SYST 116; BP_SYST 92; BP_DIAS 53; BP_DIAS 62
--- NOTE | 2020-12-14 16:35 | NUR ---
DISCHARGE NOTE: Pt discharged home, will receive [facility] service. Pt aware and willing, A&Ox4, NAD, on room air, VSS. All needs attended to. Belongings and valuables accounted for, pt denied missing items. Discharge medication information provided to pt. Discharge prescriptions to be faxed to pt's own pharmacy pending Dr. Rosario's signature. Pt aware. Per pt, already vaccinated this flu season, will follow up with PCP regarding PNA vaccine. Pt to receive DME from [facility]. Pt assisted safely onto [facility] and off unit with 2 [employer] employees at 1430. Report given to [employer]. Discharge instructions provided to pt, pt verbalized understanding.
== END 2020-12-14 16:30 | disposition home health service (06) | DRG 749 ==
PROVIDERS: ADMIT Physical Medicine & Rehabilitation Pain Medicine; ATTEND Physical Medicine & Rehabilitation Pain Medicine
PROC: 0KBN0ZZ Excision of Right Hip Muscle, Open Approach (ICD-10-PCS; principal; 2020-10-19)
PROC: 0JBB0ZZ Excision of Perineum Subcutaneous Tissue and Fascia, Open Approach (ICD-10-PCS; 2020-10-23)
PROC: 0KBN0ZZ Excision of Right Hip Muscle, Open Approach (ICD-10-PCS; 2020-10-23)
PROC: 0JBB0ZZ Excision of Perineum Subcutaneous Tissue and Fascia, Open Approach (ICD-10-PCS; 2020-10-29)
PROC: 0KBN0ZZ Excision of Right Hip Muscle, Open Approach (ICD-10-PCS; 2020-10-29)
PROC: 0JBB0ZZ Excision of Perineum Subcutaneous Tissue and Fascia, Open Approach (ICD-10-PCS; 2020-11-05)
PROC: 0KBN0ZZ Excision of Right Hip Muscle, Open Approach (ICD-10-PCS; 2020-11-05)
PROC: 0JBB0ZZ Excision of Perineum Subcutaneous Tissue and Fascia, Open Approach (ICD-10-PCS; 2020-11-13)
PROC: 0KBN0ZZ Excision of Right Hip Muscle, Open Approach (ICD-10-PCS; 2020-11-13)
PROC: 0JBB0ZZ Excision of Perineum Subcutaneous Tissue and Fascia, Open Approach (ICD-10-PCS; 2020-11-19)
PROC: 0KBN0ZZ Excision of Right Hip Muscle, Open Approach (ICD-10-PCS; 2020-11-19)
PROC: 0KBN0ZZ Excision of Right Hip Muscle, Open Approach (ICD-10-PCS; 2020-11-27)
PROC: 0KBM0ZZ Excision of Perineum Muscle, Open Approach (ICD-10-PCS; 2020-11-27)
PROC: 0HBRXZZ Excision of Toe Nail, External Approach (ICD-10-PCS; 2020-12-02)
PROC: 0KBN0ZZ Excision of Right Hip Muscle, Open Approach (ICD-10-PCS; 2020-12-03)
PROC: 0KBM0ZZ Excision of Perineum Muscle, Open Approach (ICD-10-PCS; 2020-12-03)
PROC: 0KBN0ZZ Excision of Right Hip Muscle, Open Approach (ICD-10-PCS; 2020-12-10)
PROC: 0KBM0ZZ Excision of Perineum Muscle, Open Approach (ICD-10-PCS; 2020-12-10)
DX: N76.89 Other specified inflammation of vagina and vulva (principal); A41.51 Sepsis due to Escherichia coli [E. coli]; I50.33 Acute on chronic diastolic (congestive) heart failure; N17.0 Acute kidney failure with tubular necrosis; E11.52 Type 2 diabetes mellitus with diabetic peripheral angiopathy with gangrene; D68.59 Other primary thrombophilia; T80.219A Unspecified infection due to central venous catheter, initial encounter; N39.0 Urinary tract infection, site not specified; T81.30XA Disruption of wound, unspecified, initial encounter; D64.9 Anemia, unspecified; G62.9 Polyneuropathy, unspecified; G89.29 Other chronic pain; I11.0 Hypertensive heart disease with heart failure; M19.90 Unspecified osteoarthritis, unspecified site; Z68.36 Body mass index [BMI] 36.0-36.9, adult; E66.9 Obesity, unspecified; M81.0 Age-related osteoporosis without current pathological fracture; Z90.710 Acquired absence of both cervix and uterus; Z85.42 Personal history of malignant neoplasm of other parts of uterus; Z85.3 Personal history of malignant neoplasm of breast; Z82.3 Family history of stroke; B35.1 Tinea unguium; B35.3 Tinea pedis; E11.42 Type 2 diabetes mellitus with diabetic polyneuropathy; E11.65 Type 2 diabetes mellitus with hyperglycemia; E67.3 Hypervitaminosis D; E83.52 Hypercalcemia; M51.36 Other intervertebral disc degeneration, lumbar region; Y84.8 Other medical procedures as the cause of abnormal reaction of the patient, or of later complication, without mention of misadventure at the time of the procedure; L98.9 Disorder of the skin and subcutaneous tissue, unspecified; Z20.822 Contact with and (suspected) exposure to COVID-19; Z68.38 Body mass index [BMI] 38.0-38.9, adult; Z79.4 Long term (current) use of insulin; Z87.891 Personal history of nicotine dependence; Z90.10 Acquired absence of unspecified breast and nipple; Y83.8 Other surgical procedures as the cause of abnormal reaction of the patient, or of later complication, without mention of misadventure at the time of the procedure; Y92.238 Other place in hospital as the place of occurrence of the external cause; R19.5 Other fecal abnormalities
CPT/HCPCS: 36415; 70030-TC; 71045; 73502; 74018; 83605; 83735; 84100; 84520; 85025; 85610; 85651; 86140; 87040; 87070; 87077; 87086; 93005; 93307; A4217; J0692; J1580; J1650; J1815; J2185; J2405; J2543; J3010; J3490; J7030; J7042; J7060; Z7610

== ENCOUNTER 2020-11-23 10:00 | Day surgery (SDC) | payer BC, OTHER ==
[~2020-11-23 10:00] MED LIST changes: -ALBU1.25 IH; +ALBU2.5V38 NEB; +AMIN30LI2 PO; +ASCO-375 PO; -ASCO500T10 PO; +BENZ236L TP; -CEFE1FRO IV; +CELE200C PO; +DOCU-141 PO; +GLIM1TAB18 PO; +HYDR4TAB57 PO; -HYDROMORPHONE IV; +IPRA0.2S48 INH; -IPRATROPIUM NEB NEB; -METF1000 PO; -METRONIDAZOLE IV; +NALO4SPR NS; +NUT.237L36 PO; -ONDANSETRON; +OXYC-128 PO; +OXYC10TA49 PO; -SODI473S8 TOP; +SODI473S9 MC; -VANCO; +VITA1CAP PO; -Vancomycin IV; -ZOLP5TAB8 PO; -diphenhydramine IV
[2020-11-23] MEDS ORDERED: PROPOFOL 200 MG/20 ML BOTTLE IV ONE (10:01)
[2020-11-23] MEDS ORDERED: LIDOCAINE-MPF 2% 5 ML VIAL MC ONE (10:01)
--- NOTE | 2020-11-23 10:45 | NUR ---
Pt to have Kelsi Catheter Removal procedure today with Dr. Sparks. Consent signed and placed in chart. Pre-op checklist complete. Pt darek, VSS. Report given to ANIYA Yusuf with surgery. Pt off unit via bed @ 2354.
[2020-11-23] MEDS ORDERED: BUPIVACAINE PF 0.5% 30 ML VIAL ONE (10:57)
== END 2020-11-23 12:15 | disposition still patient (30) ==
LOC: DS 10:00
PROVIDERS: ATTEND Thoracic Surgery (Cardiothoracic Vascular Surgery)
DX: T80.218A Other infection due to central venous catheter, initial encounter (principal); Z79.899 Other long term (current) drug therapy; Z98.890 Other specified postprocedural states; X58.XXXA Exposure to other specified factors, initial encounter; Y93.89 Activity, other specified; Y92.89 Other specified places as the place of occurrence of the external cause; Y99.8 Other external cause status
CPT/HCPCS: 36590; 82962 ×2; 87070; 87077; 87186 ×2; J3490 ×2; J7042; A4649

== ENCOUNTER 2024-07-16 19:58 | Inpatient (IN) | payer BC, OTHER ==
[~2024-07-16] VITALS: Ht 152.4 cm; Wt 72.6 kg
[2024-07-16] MEDS ORDERED: AZIT500T4 PO (20:44)
[2024-07-16] MEDS ORDERED: CEFT1FRO2 IV (20:46)
[2024-07-16 21:00] VITALS: BP 162/67; TEMP 98.2; O2SAT 98
[2024-07-16] MEDS ORDERED: PANT40TA49 PO (21:07)
[2024-07-16] MEDS ORDERED: TRAM50TA2 PO (21:07)
[2024-07-16] MEDS ORDERED: LISI40TA13 PO (21:07)
[2024-07-16] MEDS ORDERED: SUCR1TAB PO (21:07)
[2024-07-16] MEDS ORDERED: HONE15GE TP (21:07)
[2024-07-16] MEDS ORDERED: MAGN400O6 PO (21:07)
[2024-07-16] MEDS ORDERED: REMEDY ESSENTIAL ZINC PASTE 113 GM TOP SCH (21:30)
[2024-07-16] MEDS ORDERED: OXYCODONE/APAP 5-325 MG TABLET PO PRN (23:30)
[2024-07-16] MEDS ORDERED: TRAMADOL HCL 50 MG TABLET PO PRN (23:30)
[2024-07-16] MEDS ORDERED: MAGNESIUM HYDROXIDE 30 ML LIQUID UDC PO PRN (23:30)
[2024-07-17] MEDS: PANTOPRAZOLE SODIUM 40 MG TABLET.DR PO ONE (02:16)
[2024-07-17] MEDS: CELECOXIB 200 MG CAPSULE PO SCH (02:16)
[2024-07-17] MEDS ORDERED: TRAMADOL HCL 50 MG TABLET PO PRN (04:57)
[2024-07-17] MEDS ORDERED: OXYCODONE/APAP 5-325 MG TABLET PO PRN (04:58)
[2024-07-17] MEDS: SUCRALFATE 1 G TABLET PO SCH (06:53)
[2024-07-17] MEDS: PANTOPRAZOLE SODIUM 40 MG TABLET.DR PO SCH (06:54)
[2024-07-17 06:57] VITALS: BP 150/43; TEMP 98.3; O2SAT 96
[2024-07-17] MEDS: CYANOCOBALAMIN 100 MCG TABLET PO SCH (09:00)
[2024-07-17] MEDS: DOCUSATE SODIUM 100 MG CAPSULE PO SCH (09:00)
[2024-07-17] MEDS ORDERED: GLUCERNA 1.2 1000ML LIQUID PO SCH ×2 (09:00)
[2024-07-17] MEDS ORDERED: CYANOCOBALAMIN 100 MCG TABLET PO SCH (09:00)
[2024-07-17] MEDS: AMLODIPINE 10 MG TABLET PO SCH (09:00)
[2024-07-17] MEDS: ENOXAPARIN SODIUM 40 MG/0.4 ML DISP.SYRIN SQ SCH (09:00)
[2024-07-17] MEDS ORDERED: ZINC SULFATE 220 MG CAPSULE PO SCH (09:00)
[2024-07-17] MEDS ORDERED: PANTOPRAZOLE SODIUM 40 MG TABLET.DR PO SCH ×3 (09:00→21:00)
[2024-07-17] MEDS ORDERED: CELECOXIB 200 MG CAPSULE PO SCH (09:00)
[2024-07-17] MEDS: CHOLECALCIFEROL 1,000 UNIT TABLET PO SCH (09:52)
[2024-07-17] MEDS: ASCORBIC ACID 500 MG TABLET PO SCH (09:53)
[2024-07-17] MEDS: ANASTROZOLE 1 MG TABLET PO SCH (09:55)
[2024-07-17] MEDS: HYDROCHLOROTHIAZIDE 25 MG TABLET PO SCH (09:59)
[2024-07-17] MEDS: VALSARTAN 160 MG TABLET PO SCH (09:59)
[2024-07-17] MEDS: ZINC SULFATE 220 MG CAPSULE PO SCH (10:13)
[2024-07-17] MEDS ORDERED: ALBUTEROL SULFATE 2.5 MG/3 ML NEBU NEB PRN (10:30)
[2024-07-17 15:34] VITALS: BP 122/65; TEMP 98.6; O2SAT 97
[2024-07-17 20:32] VITALS: BP 156/47; TEMP 98; O2SAT 97
[2024-07-17] MEDS ORDERED: MAGNESIUM OXIDE 250 MG TABLET PO SCH ×2 (21:00)
[2024-07-18] MEDS: BENZONATATE 100 MG CAPSULE PO SCH
[2024-07-18] MEDS ORDERED: AMOXICILLIN-CLAVUL 875-125MG TABLET ONE (00:37)
[2024-07-18] MEDS: AMOXICILLIN-CLAVUL 875-125MG TABLET PO SCH (00:43)
[2024-07-18 06:53] VITALS: BP 175/52; TEMP 98.2; O2SAT 98
[2024-07-18] MEDS: GUAIFENESIN/DEXTROMETHORPHAN TAB.SR.12H PO SCH (09:00)
[2024-07-18] MEDS: CELECOXIB 100 MG CAPSULE PO SCH ×2 (09:46→21:18)
[2024-07-18] MEDS: LISINOPRIL 20 MG TABLET PO SCH (09:49)
[2024-07-18] MEDS: MEDIHONEY= THERAHONEY 1.5 OZ TUBE TOP SCH (14:06)
[2024-07-18 16:21] VITALS: BP 147/57; TEMP 98.6; O2SAT 95
[2024-07-18] MEDS: FERROUS SULFATE 325 MG TABEC PO SCH (17:56)
[2024-07-18 20:18] VITALS: BP 157/54; TEMP 98; O2SAT 96
[2024-07-19 06:16] VITALS: BP 160/57; TEMP 97.9; O2SAT 92
[2024-07-19 07:28] LABS: BASOPHILS # (AUTO) 0.1 K/UL (0.0-0.2); BASOPHILS % (AUTO) 0.9 % (0.0-2.0); EOSINOPHILS # (AUTO) 0.5 K/uL (0.0-0.7); EOSINOPHILS % (AUTO) 7.1 % (0.0-7.0); HEMOGLOBIN 11.2 g/dL (10.9-14.3); LYMPHOCYTES # (AUTO) 1.4 K/uL (0.8-4.8); LYMPHOCYTES % (AUTO) 17.8 % (20.5-51.5); MEAN CORPUSCULAR HEMOGLOBIN 22.9 uug (24.7-32.8); MEAN CORPUSCULAR HGB CONC 32 g/dL (32.3-35.6); MEAN CORPUSCULAR VOLUME 71.5 fL (75.5-95.3); MONOCYTES # (AUTO) 0.7 K/uL (0.1-1.30); MONOCYTES % (AUTO) 9.5 % (0.0-11.0); NEUTROPHILS % (AUTO) 64.7 % (38.5-71.5); PLATELET COUNT (AUTO) 522 K/uL (179-408); RED CELL DISTRIBUTION WIDTH 32.7 % (12.3-17.7); WHITE BLOOD COUNT (AUTO) 7.7 K/uL (3.8-11.8)
[2024-07-19 07:34] LABS: DIFFERENTIAL COMMENT 1
[2024-07-19 07:40] LABS: ALANINE AMINOTRANSFERASE 6 U/L (14-59); ALBUMIN 2.9 g/dL (3.4-5.0); ALKALINE PHOSPHATASE 63 U/L (50-136); ASPARTATE AMINOTRANSFERASE 9 U/L (15-37); BILIRUBIN,TOTAL 0.2 mg/dL (0.2-1.0); CALCIUM 10.6 mg/dL (8.5-10.1); CARBON DIOXIDE 28 mmol/L (21-32); CHLORIDE 110 mmol/L (98-107); CREATININE 1.1 mg/dL (0.6-1.3); GLUCOSE 118 mg/dL (74-106); PHOSPHOROUS 3.7 mg/dL (2.5-4.9); SODIUM SERUM 146 mmol/L (136-145); TOTAL PROTEIN, SERUM 6.8 g/dL (6.4-8.2); UREA NITROGEN, BLOOD 28 mg/dL (7-18)
[2024-07-19 08:24] LABS: ANISOCYTOSIS 3+; HYPOCHROMASIA 2+
[2024-07-19 08:25] LABS: OVALOCYTES 1+; TEAR DROP CELLS 1+
[2024-07-19 15:04] VITALS: BP 165/58; TEMP 98.4; O2SAT 98
[2024-07-19 20:03] VITALS: BP 157/66; TEMP 98.3; O2SAT 95
[2024-07-20 05:52] VITALS: BP 167/61; TEMP 98.3; O2SAT 96
[2024-07-20] MEDS: PROTEIN SUPPLEMENT (PROSTAT) 30 ML LIQUID PO SCH (09:18)
[2024-07-20] MEDS: GLUCERNA SHAKE 237 ML CAN PO SCH (09:22)
[2024-07-20] MEDS: REMEDY ESSENTIAL ZINC PASTE 113 GM TOP PRN (09:23)
[2024-07-20] MEDS: SPIRONOLACTONE 25 MG TABLET PO SCH (09:25)
[2024-07-20 15:13] LABS: *BILIRUBIN,URIN NEGATIVE (NEGATIVE); *BLOOD, URINE NEGATIVE (NEGATIVE); *CLARITY,URINE CLEAR (CLEAR); *COLOR,URINE YELLOW (YELLOW); *KETONES,URINE NEGATIVE (NEGATIVE); *PROTEIN,URINE 1+ (NEGATIVE); *UROBILINOGEN,URINE 0.2 E.U./dl (NORMAL); LEUKOCYTE ESTERASE ,URINE TRACE (NEGATIVE); NITRITE, URINE NEGATIVE (NEGATIVE); PH,URINE 5.5 (5.0-8.0); UGLUCOSE NEGATIVE (NEGATIVE)
[2024-07-20 15:21] VITALS: BP 143/52; TEMP 99; O2SAT 96
[2024-07-20 15:33] LABS: BACTERIA,URINE FEW /HPF (NONE SEEN); RBC,URINE 0-3 /HPF (0-3); SQUAMOUS EPITHELIAL CELL,UR MODERATE /HPF (NONE SEEN)
[2024-07-20 20:00] VITALS: BP 166/62; TEMP 98.1; O2SAT 96
[2024-07-21 06:00] VITALS: BP 171/77; TEMP 98.2; O2SAT 98
[2024-07-21 16:11] VITALS: BP 143/65; TEMP 98.1; O2SAT 98
[2024-07-21 16:12] VITALS: BP 140/53; O2SAT 98
[2024-07-21 18:42] VITALS: BP 123/51; O2SAT 95
[2024-07-21] MEDS: CELECOXIB 100 MG CAPSULE PO SCH (20:44)
[2024-07-21 21:15] VITALS: BP 112/49; TEMP 98.2; O2SAT 95
[2024-07-22 07:10] LABS: BASOPHILS # (AUTO) 0.1 K/UL (0.0-0.2); BASOPHILS % (AUTO) 0.8 % (0.0-2.0); EOSINOPHILS # (AUTO) 0.5 K/uL (0.0-0.7); EOSINOPHILS % (AUTO) 4.9 % (0.0-7.0); HEMOGLOBIN 11.4 g/dL (10.9-14.3); LYMPHOCYTES # (AUTO) 1.4 K/uL (0.8-4.8); MEAN CORPUSCULAR HEMOGLOBIN 23.1 uug (24.7-32.8); MEAN CORPUSCULAR HGB CONC 33 g/dL (32.3-35.6); MEAN CORPUSCULAR VOLUME 71.1 fL (75.5-95.3); MONOCYTES % (AUTO) 9.5 % (0.0-11.0); NEUTROPHILS # (AUTO) 7.9 K/uL (1.8-8.9); NEUTROPHILS % (AUTO) 71.8 % (38.5-71.5); PLATELET COUNT (AUTO) 606 K/uL (179-408); RED BLOOD CELL COUNT(AUTO) 4.93 MIL/uL (3.63-4.92); RED CELL DISTRIBUTION WIDTH 32.4 % (12.3-17.7); WHITE BLOOD COUNT (AUTO) 10.9 K/uL (3.8-11.8)
[2024-07-22 07:19] LABS: DIFFERENTIAL COMMENT 1
[2024-07-22 07:40] LABS: IRON, SERUM 23 ug/dL (50-175)
[2024-07-22 07:55] LABS: ALANINE AMINOTRANSFERASE 19 U/L (14-59); ALBUMIN 2.9 g/dL (3.4-5.0); ALKALINE PHOSPHATASE 76 U/L (50-136); ASPARTATE AMINOTRANSFERASE 7 U/L (15-37); BILIRUBIN,TOTAL 0.3 mg/dL (0.2-1.0); CALCIUM 10.4 mg/dL (8.5-10.1); CARBON DIOXIDE 28 mmol/L (21-32); CHLORIDE 105 mmol/L (98-107); CHOLESTEROL 143 mg/dL (<200); CREATININE 1.1 mg/dL (0.6-1.3); GLUCOSE 125 mg/dL (74-106); HDL CHOLESTEROL 44 mg/dL (40-60); MAGNESIUM 1.9 mg/dL (1.8-2.4); PHOSPHOROUS 3.6 mg/dL (2.5-4.9); SODIUM SERUM 139 mmol/L (136-145); TOTAL PROTEIN, SERUM 6.8 g/dL (6.4-8.2); TRIGLYCERIDES 101 MG/DL (30-150); UREA NITROGEN, BLOOD 32 mg/dL (7-18)
[2024-07-22] MEDS: AMOXICILLIN-CLAVUL 875-125MG TABLET PO SCH (09:26)
[2024-07-22] MEDS: CELECOXIB 100 MG CAPSULE PO ONE (09:27)
[2024-07-22] MEDS: SUCRALFATE 1 G TABLET PO SCH (11:08)
[2024-07-22 14:02] LABS: BAND % (MANUAL) 3 % (0-10); LYMPHOCYTES % (MANUAL) 16 % (20-40); MONOCYTES % (MANUAL) 10 % (2-10); NEUTROPHILS % (MANUAL) 68 % (42-75)
[2024-07-22 14:03] LABS: ANISOCYTOSIS 3+; EOSINOPHILS % (MANUAL) 4 % (0-8); HYPOCHROMASIA 1+; PLATELET ESTIMATE INCREASED
[2024-07-22 15:07] VITALS: BP 130/53; TEMP 98; O2SAT 96
[2024-07-22 20:27] VITALS: BP 148/49; TEMP 98.2; O2SAT 98
[2024-07-22] MEDS: CELECOXIB 200 MG CAPSULE PO SCH (20:28)
[2024-07-23 04:30] VITALS: BP 140/44; TEMP 98.1; O2SAT 96
[2024-07-23 19:00] VITALS: BP 144/63; TEMP 98; O2SAT 97
[2024-07-24 08:18] LABS: BASOPHILS # (AUTO) 0.1 K/UL (0.0-0.2); BASOPHILS % (AUTO) 0.4 % (0.0-2.0); EOSINOPHILS # (AUTO) 0.5 K/uL (0.0-0.7); EOSINOPHILS % (AUTO) 3.1 % (0.0-7.0); HEMATOCRIT 35.5 % (31.2-41.9); HEMOGLOBIN 11.3 g/dL (10.9-14.3); LYMPHOCYTES # (AUTO) 1.2 K/uL (0.8-4.8); LYMPHOCYTES % (AUTO) 7.6 % (20.5-51.5); MEAN CORPUSCULAR HEMOGLOBIN 22.6 uug (24.7-32.8); MEAN CORPUSCULAR HGB CONC 32 g/dL (32.3-35.6); MEAN CORPUSCULAR VOLUME 71.1 fL (75.5-95.3); MONOCYTES # (AUTO) 1.5 K/uL (0.1-1.30); MONOCYTES % (AUTO) 9.5 % (0.0-11.0); NEUTROPHILS # (AUTO) 12.3 K/uL (1.8-8.9); NEUTROPHILS % (AUTO) 79.4 % (38.5-71.5); PLATELET COUNT (AUTO) 659 K/uL (179-408); RED BLOOD CELL COUNT(AUTO) 4.99 MIL/uL (3.63-4.92); RED CELL DISTRIBUTION WIDTH 32.1 % (12.3-17.7); WHITE BLOOD COUNT (AUTO) 15.5 K/uL (3.8-11.8)
[2024-07-24 08:32] LABS: DIFFERENTIAL COMMENT 1
[2024-07-24 08:45] VITALS: BP 159/46; TEMP 98.3; O2SAT 99
[2024-07-24 12:21] LABS: BAND % (MANUAL) 13 % (0-10); EOSINOPHILS % (MANUAL) 2 % (0-8); LYMPHOCYTES % (MANUAL) 6 % (20-40); MONOCYTES % (MANUAL) 8 % (2-10); NEUTROPHILS % (MANUAL) 67 % (42-75); REACTIVE LYMPHOCYTES 4 % (0-0)
[2024-07-24 12:22] LABS: ANISOCYTOSIS 3+; HYPOCHROMASIA 2+; PLATELET ESTIMATE INCREASED; TARGET CELLS 1+
[2024-07-24 14:53] VITALS: BP 130/50; TEMP 98; O2SAT 100
[2024-07-24] MEDS: FLUCONAZOLE 100 MG TABLET PO SCH (15:16)
[2024-07-24 22:00] VITALS: BP 156/50; TEMP 97.7; O2SAT 96
[2024-07-25 06:00] VITALS: BP 153/51; TEMP 97.9; O2SAT 97
[2024-07-25 07:29] LABS: BASOPHILS # (AUTO) 0.1 K/UL (0.0-0.2); BASOPHILS % (AUTO) 0.4 % (0.0-2.0); EOSINOPHILS # (AUTO) 0.5 K/uL (0.0-0.7); HEMATOCRIT 35.2 % (31.2-41.9); HEMOGLOBIN 11.2 g/dL (10.9-14.3); LYMPHOCYTES # (AUTO) 1.3 K/uL (0.8-4.8); LYMPHOCYTES % (AUTO) 9.9 % (20.5-51.5); MEAN CORPUSCULAR HEMOGLOBIN 22.6 uug (24.7-32.8); MEAN CORPUSCULAR HGB CONC 32 g/dL (32.3-35.6); MEAN CORPUSCULAR VOLUME 70.9 fL (75.5-95.3); MONOCYTES # (AUTO) 1.2 K/uL (0.1-1.30); MONOCYTES % (AUTO) 9.1 % (0.0-11.0); NEUTROPHILS # (AUTO) 9.8 K/uL (1.8-8.9); NEUTROPHILS % (AUTO) 76.6 % (38.5-71.5); PLATELET COUNT (AUTO) 731 K/uL (179-408); RED BLOOD CELL COUNT(AUTO) 4.96 MIL/uL (3.63-4.92); RED CELL DISTRIBUTION WIDTH 32.1 % (12.3-17.7); WHITE BLOOD COUNT (AUTO) 12.8 K/uL (3.8-11.8)
[2024-07-25 07:32] LABS: DIFFERENTIAL COMMENT 1
[2024-07-25] MEDS: SPIRONOLACTONE 25 MG TABLET PO SCH (13:15)
[2024-07-25 16:06] VITALS: BP 116/56; TEMP 97.9; O2SAT 98
[2024-07-25 20:00] VITALS: BP 154/49; TEMP 98.3; O2SAT 96
[2024-07-25] MEDS: hydrALAZINE HCL 25 MG TABLET PO PRN (22:32)
[2024-07-26] VITALS (10 sets, daily range): BP systolic 107–170; BP diastolic 44–68; TEMP 98–98.7; O2SAT 94–98
[2024-07-27 05:49] VITALS: BP 171/67; TEMP 98.2; O2SAT 97
[2024-07-27 06:50] VITALS: BP 157/68; TEMP 98; O2SAT 98
[2024-07-27 16:04] VITALS: BP 141/62; TEMP 98.8; O2SAT 98
[2024-07-27 20:01] VITALS: BP 162/76; TEMP 98.3; O2SAT 98
[2024-07-27 21:10] VITALS: BP 149/58; TEMP 98.6
[2024-07-28 06:15] VITALS: BP 152/65; TEMP 98.2; O2SAT 96
[2024-07-28] MEDS ORDERED: LIDOCAINE HCL 1% 20 ML VIAL MC PRN (06:30)
[2024-07-28 08:05] LABS: BASOPHILS % (AUTO) 0.4 % (0.0-2.0); EOSINOPHILS # (AUTO) 0.4 K/uL (0.0-0.7); EOSINOPHILS % (AUTO) 4.3 % (0.0-7.0); HEMOGLOBIN 11.9 g/dL (10.9-14.3); LYMPHOCYTES # (AUTO) 1.6 K/uL (0.8-4.8); LYMPHOCYTES % (AUTO) 16.3 % (20.5-51.5); MEAN CORPUSCULAR HEMOGLOBIN 22.8 uug (24.7-32.8); MEAN CORPUSCULAR HGB CONC 32 g/dL (32.3-35.6); MEAN CORPUSCULAR VOLUME 70.8 fL (75.5-95.3); MONOCYTES % (AUTO) 10.1 % (0.0-11.0); NEUTROPHILS # (AUTO) 6.6 K/uL (1.8-8.9); NEUTROPHILS % (AUTO) 68.9 % (38.5-71.5); PLATELET COUNT (AUTO) 973 K/uL (179-408); RED BLOOD CELL COUNT(AUTO) 5.22 MIL/uL (3.63-4.92); RED CELL DISTRIBUTION WIDTH 31.9 % (12.3-17.7); WHITE BLOOD COUNT (AUTO) 9.6 K/uL (3.8-11.8)
[2024-07-28 08:13] LABS: DIFFERENTIAL COMMENT 1
[2024-07-28 08:18] LABS: ALANINE AMINOTRANSFERASE 14 U/L (14-59); ALKALINE PHOSPHATASE 90 U/L (50-136); ASPARTATE AMINOTRANSFERASE 13 U/L (15-37); BILIRUBIN,TOTAL 0.2 mg/dL (0.2-1.0); CALCIUM 10.2 mg/dL (8.5-10.1); CARBON DIOXIDE 26 mmol/L (21-32); CHLORIDE 106 mmol/L (98-107); CREATININE 1.1 mg/dL (0.6-1.3); GLUCOSE 157 mg/dL (74-106); POTASSIUM 4.2 mmol/L (3.5-5.1); SODIUM SERUM 142 mmol/L (136-145); TOTAL PROTEIN, SERUM 7.1 g/dL (6.4-8.2); UREA NITROGEN, BLOOD 30 mg/dL (7-18)
[2024-07-28] MEDS: KETOROLAC TROMETHAMINE 30 MG INJ IM PRN (11:45)
[2024-07-28] MEDS: LORAZEPAM 1 MG TABLET PO ONE (12:26)
[2024-07-28] MEDS: MORPHINE SULFATE 2 MG/1 ML DISP.SYRIN IM ONE (12:26)
[2024-07-28 16:02] VITALS: BP 152/59; TEMP 98.5; O2SAT 97
[2024-07-28 16:15] LABS: *BILIRUBIN,URIN NEGATIVE (NEGATIVE); *BLOOD, URINE NEGATIVE (NEGATIVE); *CLARITY,URINE CLEAR (CLEAR); *COLOR,URINE YELLOW (YELLOW); *KETONES,URINE NEGATIVE (NEGATIVE); *PROTEIN,URINE NEGATIVE (NEGATIVE); *UROBILINOGEN,URINE 0.2 E.U./dl (NORMAL); LEUKOCYTE ESTERASE ,URINE NEGATIVE (NEGATIVE); NITRITE, URINE NEGATIVE (NEGATIVE); PH,URINE 5.5 (5.0-8.0); UGLUCOSE NEGATIVE (NEGATIVE)
== END 2024-07-28 18:00 | disposition home health service (06) | DRG 377 ==
PROVIDERS: ADMIT Physical Medicine & Rehabilitation Pain Medicine; ATTEND Physical Medicine & Rehabilitation Pain Medicine
PROC: 079T3ZX Drainage of Bone Marrow, Percutaneous Approach, Diagnostic (ICD-10-PCS; principal; 2024-07-28)
DX: K31.811 Angiodysplasia of stomach and duodenum with bleeding (principal); I50.33 Acute on chronic diastolic (congestive) heart failure; B37.49 Other urogenital candidiasis; D62 Acute posthemorrhagic anemia; N17.9 Acute kidney failure, unspecified; N39.0 Urinary tract infection, site not specified; D68.59 Other primary thrombophilia; E44.0 Moderate protein-calorie malnutrition; E87.0 Hyperosmolality and hypernatremia; E11.40 Type 2 diabetes mellitus with diabetic neuropathy, unspecified; E66.9 Obesity, unspecified; G89.4 Chronic pain syndrome; I10 Essential (primary) hypertension; Z85.3 Personal history of malignant neoplasm of breast; Z90.10 Acquired absence of unspecified breast and nipple; D75.839 Thrombocytosis, unspecified; M19.90 Unspecified osteoarthritis, unspecified site; E83.52 Hypercalcemia; E88.09 Other disorders of plasma-protein metabolism, not elsewhere classified; I11.0 Hypertensive heart disease with heart failure; J20.9 Acute bronchitis, unspecified; K29.70 Gastritis, unspecified, without bleeding; L98.9 Disorder of the skin and subcutaneous tissue, unspecified; Z85.43 Personal history of malignant neoplasm of ovary; Z87.891 Personal history of nicotine dependence; Z90.710 Acquired absence of both cervix and uterus; K21.9 Gastro-esophageal reflux disease without esophagitis; Z68.31 Body mass index [BMI] 31.0-31.9, adult; D47.2 Monoclonal gammopathy
CPT/HCPCS: 36415; 70030-TC; 83550; 83735; 84100; 84443; 85025; 85610; 85730; 97535-GO-CO; A4663; J1650; J1885; J2270; J3490